=== PATIENT | female | born 1950 | race Caucasian/White ===

== ENCOUNTER 2017-12-28 23:32 | Emergency (ER) | payer MEDICARE, SELFPAY ==
[2017-12-29] MEDS: Phenazopyridine 100 MG TAB (01:35)
[2017-12-29] MEDS: MacroBID 100 MG CAP (01:35)
[2017-12-29 13:54] LABS: Bilirubin Negative (Negative); Blood Large (Negative); Clarity Sl Cloudy; Glucose Negative (Negative); Ketones Negative (Negative); Leukocyte Esterase Moderate (Negative); Nitrite Negative (Negative); RBC 20-50 (0-2); Urobilinogen 0.2 EU/dL (Up TO 0.2); WBC >50 HPF (0-5)
[2017-12-29 13:55] LABS: Bacteria Moderate HPF (Negative); C & S Indicated? Yes; Casts Negative LPF (Negative); Crystals Negative HPF (Negative); Epithelial Cells Rare HPF (Negative); Mucus Trace (Negative)
== END 2017-12-29 14:18 | disposition home or self-care (01) ==
LOC: ER 12-29 12:06
PROVIDERS: Emergency Provider Physician Assistant; PCP Family Medicine
DX: N39.0 Urinary tract infection, site not specified (principal); B96.20 Unspecified Escherichia coli [E. coli] as the cause of diseases classified elsewhere; Z87.440 Personal history of urinary (tract) infections; I10 Essential (primary) hypertension
CPT/HCPCS: 87077; 99283; 81003; 81015; 87086; 87186

== ENCOUNTER 2018-01-10 00:51 | Outpatient (CLI) | payer MEDICARE, SELFPAY ==
--- NOTE | 2018-01-10 12:45 | DI.MAMMO_ITS ---
SYMPTOMS/DIAGNOSIS: SCREENING, Z12.31, PREVENTATIVE CARE, Z00.00 MAMMOGRAM: Mammograms were interpreted according to the usual protocol including computer analysis with CAD system, tomosynthesis and C view imaging. Comparison with prior examinations. Breast density A. No suspicious masses or microcalcifications are seen. There has been no significant change compared to the prior examinations. IMPRESSION: No evidence for malignancy. Yearly mammography is recommended. Category I. MQSA ASSESSMENT OF FINDINGS: Negative. Category 1. Patient will receive a letter notifying them of these results. BI-RAD category A. The breasts are almost entirely fatty.
== END 2018-01-10 01:11 ==
PROVIDERS: PCP Family Medicine; Visit Provider Family Medicine
DX: Z12.31 Encounter for screening mammogram for malignant neoplasm of breast (principal)
CPT/HCPCS: 77063; 77067

== ENCOUNTER 2018-04-18 13:23 | Outpatient (CLI) | payer MEDICARE, SELFPAY | END 2018-04-18 13:43 | PROVIDERS: PCP Family Medicine; Visit Provider Family Medicine | DX: R30.0 Dysuria (principal) | CPT/HCPCS: 87086 ==

== ENCOUNTER 2018-07-11 12:48 | Outpatient (REF) | payer MEDICARE, SELFPAY ==
[2018-07-11 21:26] LABS: HCT 44.4 % (36.0-46.0); HGB 14.6 g/dL (12.0-15.5); Mean Corp. HGB Concentration 32.9 g/dL (32.0-36.0); Mean Corpuscular Hemoglobin 29.6 pg (27.0-33.0); Mean Corpuscular Volume 90.1 fL (80-95); Mean Platelet Volume 10.8 fL (8.0-11.0); Platelet Count 313 x1000/uL (130-400); RBC 4.93 m/cumm (4.00-5.20); RBC Distribution Width 13.3 % (11.7-14.6); White Blood Cell Count 8.47 k/cumm (4.4-10.8)
[2018-07-11 21:57] LABS: ALT 23 U/L (12-78); AST 22 U/L (15-37); Albumin 3.6 g/dL (3.4-5.0); Alkaline Phosphatase 121 U/L (46-116); BUN 14 mg/dL (7-18); Bilirubin, Total 0.4 mg/dL (0.2-1.0); CREATININE 0.82 mg/dL (0.55-1.02); Calcium 9.3 mg/dL (8.5-10.1); Chloride 103 mmol/L (98-107); Glucose 101 mg/dL (70-100); Potassium 4.4 mmol/L (3.5-5.1); Sodium 141 mmol/L (136-145); TSH (W/Ref FT4) 1.27 uIU/mL (0.358-3.74); Total Protein 7.5 g/dL (6.4-8.2)
== END 2018-07-11 13:08 ==
LOC: NCHCN 12:48
PROVIDERS: PCP Family Medicine; Visit Provider Family Medicine
DX: I10 Essential (primary) hypertension (principal); E78.5 Hyperlipidemia, unspecified; R10.814 Left lower quadrant abdominal tenderness; G56.02 Carpal tunnel syndrome, left upper limb
CPT/HCPCS: 80053; 85027; 84443

== ENCOUNTER 2018-07-15 16:09 | Outpatient (REF) | payer MEDICARE, SELFPAY ==
--- NOTE | 2018-07-15 11:32 | SKI_PTH ---
PATIENT: Poppy Coyne LOC: [facility] U#:[id number] AGE/SX: 67/F ROOM: RE07/15/[address]: Chuy Chu DO : 1950 BED: DIS: 07/15/2018 SPEC #: [id number] RECD: 07/16/18 12:13 STATUS: HAILEY REAlicia #: [id number] ROMAN: 07/15/18 11:[address]: Chuy Chu DEPT: Surgical Specimen RECD BY: Sanjuanita Ayala ENTERED: 07/16/18 12:14 SP TYPE: JB HURST DR: Jing Brock V Tissues: 1 - SKIN BIOPSY(SHAVE/PUNCH) Procedures: SKIN LEVEL 4 Comments: [id number]
== END 2018-07-15 16:29 ==
LOC: LBN 16:09
PROVIDERS: PCP Family Medicine; Visit Provider Otolaryngology Otolaryngology/Facial Plastic Surgery
DX: H73.892 Other specified disorders of tympanic membrane, left ear (principal)
CPT/HCPCS: 88305

== ENCOUNTER 2019-01-13 00:56 | Outpatient (CLI) | payer MEDICARE, SELFPAY ==
--- NOTE | 2019-01-13 10:52 | DI.MAMMO_ITS ---
SYMPTOMS/DIAGNOSIS: SCREENING, Z12.39, PREVENTATIVE CARE, Z00.00 MAMMOGRAM: Mammograms were interpreted according to the usual protocol including computer analysis with CAD system, tomosynthesis and C view imaging. The breast tissue is predominantly of fatty radiodensity. There is no evidence of a mass. There are no suspicious calcifications and there has been no appreciable interval change when compared with prior images. SUMMARY: No evidence of malignancy, Category I, yearly screening mammography is recommended. Breast density Category A. SA ASSESSMENT OF FINDINGS: Negative. Category 1. Patient will receive a letter notifying them of these results. BI-RAD category A. The breasts are almost entirely fatty.
== END 2019-01-13 01:16 ==
PROVIDERS: PCP Family Medicine; Visit Provider Family Medicine
DX: Z12.31 Encounter for screening mammogram for malignant neoplasm of breast (principal)
CPT/HCPCS: 77063; 77067

== ENCOUNTER 2019-04-16 01:16 | Outpatient (CLI) | payer MEDICARE, SELFPAY ==
[2019-04-16 09:31] LABS: Calculated LDL 134 mg/dL; Cholesterol 214 mg/dL (<200); HDL Cholesterol 49 mg/dL (40-60); Triglyceride 157 mg/dL (<150)
== END 2019-04-16 01:36 ==
PROVIDERS: PCP Nurse Practitioner; Visit Provider Nurse Practitioner
DX: I10 Essential (primary) hypertension (principal); Z13.6 Encounter for screening for cardiovascular disorders
CPT/HCPCS: 36415; 80061

== ENCOUNTER 2019-05-13 01:31 | Outpatient (CLI) | payer MEDICARE, SELFPAY ==
--- NOTE | 2019-05-13 07:26 | DI.US_ITS ---
EXAM: US ABDOMEN CLINICAL HISTORY: upper abd pain,r10.10 TECHNIQUE: Ultrasound abdomen performed using standard protocol. COMPARISON: PELVIS TRANSVAG from 11/17/2016 FINDINGS: LIVER: Normal. There is hepatopetal flow through the portal vein. GALLBLADDER: No evidence of cholelithiasis. No evidence of wall thickening. No pericholecystic fluid identified. KIDNEYS: Kidneys are symmetric in size. No evidence of renal calculi. No evidence of hydronephrosis. No renal mass or cyst identified. BILIARY SYSTEM: Common bile duct measures 5 mm. No intrahepatic biliary ductal dilation. MOBLEY'S SIGN: Negative. PANCREAS: Normal where visualized. SPLEEN: Not enlarged. ABDOMINAL AORTA AND IVC: Visualized portions normal caliber. ASCITES: None seen. IMPRESSION: Normal sonographic appearance of the upper abdomen.
[2019-05-13 08:58] LABS: ALT 26 U/L (14-59); AST 15 U/L (15-37); Albumin 3.7 g/dL (3.4-5.0); Alkaline Phosphatase 112 U/L (46-116); Bilirubin, Direct 0.11 mg/dL (0.00-0.20); Bilirubin, Total 0.4 mg/dL (0.2-1.0); Lipase 100 U/L (73-393); Total Protein 7.3 g/dL (6.4-8.2)
== END 2019-05-13 01:51 ==
PROVIDERS: PCP Nurse Practitioner; Visit Provider Nurse Practitioner
DX: R10.10 Upper abdominal pain, unspecified (principal)
CPT/HCPCS: 36415; 80076; 83690; 76700

== ENCOUNTER 2019-11-26 01:42 | Outpatient (CLI) | payer MEDICARE, SELFPAY ==
--- NOTE | 2019-11-26 06:30 | DI.US_ITS ---
EXAM: MG MAMMO DIAGNOSTIC BI CLINICAL HISTORY: RT BREAST LUMP 2:00,N63.0. COMPARISON: Mammograms from 2011 through 2019. TECHNIQUE: Craniocaudal and mediolateral oblique Full Field Digital Mammography views with Computer Aided Diagnosis followed by Tomosynthesis and right breast ultrasound. FINDINGS: Mammography/Tomosynthesis: Masses/Architectural Distortion: None seen. Microcalcifications: No suspicious pleomorphic-type are seen. Skin Thickening/Nipple Retraction: None. Breast US: Echotexture: Normal appearance of the glandular tissue. Shadowing: No suspicious foci. Cyst: None. Solid lesions: None seen. Ductal dilation: None. The area of the palpable abnormality corresponds to a 3.4 x 0.7 x 3.1 centimeter lesion which is isoe choic to fat, consistent with a simple lipoma. IMPRESSION: 1. No evidence of malignancy is noted. 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 2. Unless there is more urgent need, follow-up screening mammography is recommended, as per [place] [employer] guidelines. BI-RADS Category 2 - Benign Findings Breast Density - Category A - Almost entirely fatty: A negative radiographic report should not delay biopsy if a dominant or clinically suspicious mass is present. Up to ten percent of cancers are not identified on mammography. A negative report may reinforce clinical impression. Adenosis and dense breasts may obscure an underlying neoplasm. False positive reports average 6 to 10%. Patient will receive a letter notifying them of these results.
== END 2019-11-26 02:02 ==
PROVIDERS: PCP Nurse Practitioner; Visit Provider Nurse Practitioner
DX: Z12.4 Encounter for screening for malignant neoplasm of cervix (principal); R92.8 Other abnormal and inconclusive findings on diagnostic imaging of breast; D17.1 Benign lipomatous neoplasm of skin and subcutaneous tissue of trunk
CPT/HCPCS: 76642; 77062; 77066; G0279

== ENCOUNTER 2020-03-05 04:26 | Outpatient (CLI) | payer MEDICARE, SELFPAY ==
--- NOTE | 2020-03-05 06:45 | DI.US_ITS ---
EXAM: US LOWER EXTREMITY VENOUS LT CLINICAL HISTORY: edema left leg,R60.9 TECHNIQUE: Left lower extremity venous ultrasound performed using grayscale, color-flow, and spectra l Doppler analysis. COMPARISON: No exams were available for comparison FINDINGS: The left common femoral, femoral and popliteal veins demonstrate normal compressibility, augmentation , and color Doppler. The posterior tibial veins are patent. The saphenofemoral junction is unremarka ble. There is no evidence of a Webb cyst. The soft tissues are unremarkable. IMPRESSION: No DVT. DATA REPOSITORY:
== END 2020-03-05 04:46 ==
PROVIDERS: PCP Nurse Practitioner; Visit Provider Nurse Practitioner
DX: R60.9 Edema, unspecified (principal)
CPT/HCPCS: 93971

== ENCOUNTER 2020-05-20 02:53 | Outpatient (CLI) | payer MEDICARE, SELFPAY ==
[2020-05-20 08:16] LABS: CREATININE 0.83 mg/dL (0.55-1.02)
[2020-05-20] MEDS: Omnipaque 350 MG/ML 50 ML BTL PO (08:16)
[2020-05-20] MEDS: Breeza Beverage 473 ML BTL PO ×5 (08:18→09:29)
--- NOTE | 2020-05-20 09:15 | DI.CT_ITS ---
EXAM: CT ABDOMEN PELVIS W CLINICAL HISTORY: UNILATERA EDEMA LOWER EXTREMITY,R60.0,? pELVIC PASS TECHNIQUE: Imaging Protocol: Axial computed tomography images with coronal and sagittal reformatted images were created and reviewed CONTRAST MATERIAL: Intravenous: Omnipaque 350 Contrast volume:100 mL Oral: Yes COMPARISON: No exams were available for comparison FINDINGS: ABDOMEN: Lung Bases: Normal where visualized. Liver: Normal density. No measurable mass. Portal, Superior Mesenteric, and Splenic Veins: Unremarkable. Gallbladder and Biliary Tract: No radiodense calculus or dilation. Pancreas: Normal density, no abnormal calcifications or inflammatory process. Spleen: Normal. Calcified granuloma. Adrenals: No masses seen. Kidneys: Normal size, contour and axis. No radiodense stones or obstructive uropathy. There are few t iny hypodense lesions in the kidneys bilaterally. They are too small for further characterization, b ut likely reflect small cysts. Abdominal Aorta: Abdominal portion non-dilated. Mild atherosclerosis. Bowel: No obstruction or bowel wall thickening. Appendix is unremarkable. Scattered diverticula throu ghout the colon. No evidence of acute diverticulitis. Peritoneal Cavity: No ascites, collection or mesenteric inflammatory response. No free air. Lymph Nodes: Within normal limits. Bones: Within normal limits for the patient's age. Soft Tissues: Unremarkable. PELVIS: Bladder: Symmetric distention, no gross wall thickening. Reproductive Organs: Unremarkable as visualized. Lymph Nodes: Within normal limits. Bones: Within normal limits for the patient's age. IMPRESSION: Unremarkable CT scan of the abdomen and pelvis. RADIATION DOSE DELIVERED: 993.47mGy.cm Total DLP DATA REPOSITORY: All CT scans at this facility are submitted to the National Radiology Data Registry (NRDR) Dose Index Registry (DIR) with the [employer] (ACR). RADIATION OPTIMIZATION: All CT scans at this facility use at least one of these dose optimization te chniques: automated exposure control; mA and/or kV adjustment per patient size (includes targeted exa ms where dose is matched to clinical indication); or iterative reconstruction.
[2020-05-20] MEDS: Omnipaque 350 MG/ML 100 ML BTL IJ (09:27)
[2020-05-20] MEDS: Normal Saline - Diluent 50 ML VIAL IV (09:27)
== END 2020-05-20 03:13 ==
PROVIDERS: PCP Nurse Practitioner; Visit Provider Nurse Practitioner
DX: I10 Essential (primary) hypertension (principal); R60.0 Localized edema; K57.30 Diverticulosis of large intestine without perforation or abscess without bleeding
CPT/HCPCS: 74177; 82565; J3490; Q9967

== ENCOUNTER 2020-06-24 01:36 | Outpatient (CLI) | payer MEDICARE, SELFPAY ==
--- NOTE | 2020-06-24 07:15 | DI.US_ITS ---
APPROVED REPORT EXAM: Comprehensive 2D, Doppler, and color-flow Echocardiogram Patient Location: Out-Patient Machine Puller: Jennifer Carlos RDCS (AE) Indications: Edema, SOB Other Information Study Quality: Adequate Conclusion Normal left ventricular wall thickness and chamber size. Estimated ejection fraction is 60%. There are no segmental wall motion abnormalities Normal right ventricular size and systolic function Both atria are normal in size There are no structural or hemodynamically significant valvular abnormalities Wall motion Left Ventricle The left ventricle is normal size. The left ventricular systolic function is normal. The left ventric ular ejection fraction is within the normal range. There is normal left ventricular wall thickness. T here is normal LV segmental wall motion. There is no ventricular septal defect visualized. LVEF is 60 %. Right Ventricle The right ventricle is normal size. The right ventricular systolic function is normal. The RVSP is 26 .4 mmHg. Atria The left atrium size is normal. The right atrium size is normal. The interatrial septum is intact wit h no evidence for an atrial septal defect. Aortic Valve The aortic valve is normal in structure. Aortic valve is trileaflet. There is no aortic valvular sten osis. No aortic regurgitation is present. Mitral Valve The mitral valve is normal in structure. No evidence of mitral valve stenosis. Trace mitral regurgita tion. Tricuspid Valve The tricuspid valve is normal in structure. There is no tricuspid valve stenosis. Trace tricuspid reg urgitation. Pulmonic Valve The pulmonary valve is normal in structure. There is no pulmonic valvular stenosis. There is no pulmo dave valvular regurgitation. Great Vessels The aortic root is normal in size. The ascending aorta is normal Aortic arch is normal in caliber. IV C is normal in size and collapses >50% with inspiration. Pericardium There is no pericardial effusion. 2D Dimensions IVSD d PLAX 0.85 cm F: 0.6-1.0 LV Vol A2C d MOD 96.1 mL LVPW d PLAX 0.85 cm F: 0.6 - 1.0 LV Vol A4C d MOD 132.7 mL LVID d PLAX 4.83 cm F: 3.8 - 5.2 LA vol/ BSA A2C s A-L 35.1 mL/m2 LVDs 3.05 cm F: 2.2 - 3.5 LA vol/ BSA A4C s A-L 34.8 mL/m2 Ao Root d 2.97 cm F: 2.7 - 3.3 LA Vol/ BSA Biplane s A-L 36.9 mL/m2 RA Area A4C 14.61 cm2 LA Area A4C s MOD 20.72 cm2 RA Vol/ BSA A4C s A-L 21.3 mL/m2 LA Area A2C s MOD 19.70 cm2 Ao Asc Diam d 3.34 cm F: 2.3 - 3.1 LV EF A4C MOD 59.3 % LV EF Teichholz 65.8 % LV EF A2C MOD 58.1 % LVEF (Mendez's) 58.60 % F: 54 - 74 LV EF Biplane MOD 58.6 % LV Volume 89.52 mL F: 46 - 106 SV 67.81 mL LV Volume Index 49.18 mL/m2 F: 29 - 61 SV Index 37.11 mL/m2 LV Vol Biplane MOD 115.7 mL FS 36.20 % M-Mode TAPSE 2.39 cm (M/F) >1.7 LV Diastology MV E' medial 0.120 (>0.07 m/s) E/A Ratio 1.0 LV E/e MED 6.75 (<14) MV E Vmax 0.81 (0.4-1.3 m/s) MV E' lateral 0.108 (>0.1 m/s) MV A Vmax 0.85 (0.4-1.3 m/s) LV E/e LAT 7.55 (<14) MV E/A Ratio 0.93 MV E/E' medial 6.79 MV E/E' lateral 7.56 Aortic Valve LVOT Area 2.81 cm2 AoV Area Vmax 2.39 cm2 LVOT Vmax 1.25 m/s AoV Area/ BSA (Vmax) 1.31 cm2/m2 LVOT Mean Moses. 0.71 m/s JAMILA Mean Moses. 2.04 cm2 LVOT Peak Grad 6.3 mmHg JAMILA Mean Moses. Index 1.12 cm2/m2 LVOT Mean Grad 2.5 mmHg LVOT VTI 0.310 m LVOT Diam s 1.85 cm AoV Vmax 1.48 m/s Velocity Ratio 0.84 AoV Mean Moses. 0.98 m/s AoV Peak Grad 8.7 mmHg LVOT SV 87.10 mL AoV Mean Grad 4.3 mmHg AoV VTI 0.368 m AoV Area VTI 2.37 cm2 AoV Area/ BSA (VTI) 1.29 cm/m2 Mitral Valve MV DT 209 (160-240 msec) MV PHT 60 msec MV Area PHT 3.64 cm2 MV VTI 0.455 m MV Area VTI 1.92 (4.0-6.0 cm2) Pulmonary Valve PV Vmax 1.02 (0.5-1.5 m/s) RVOT Peak Gr. 2.49 mmHg PV Peak Grad 4.1 mmHg RVOT Mean Gr. 1.10 mmHg PV Mean Grad 2.2 mmHg RVOT VTI 0.163 m PV VTI 0.244 m RVOT Vmax 0.79 m/s Tricuspid Valve TR Peak Grad 23.4 mmHg TR Vmax 2.42 m/s RA Pressure 3.00 mmHg RVSP (TR) 26.4 mmHg
== END 2020-06-24 01:37 ==
LOC: DI 01:37
PROVIDERS: PCP Nurse Practitioner; Visit Provider Nurse Practitioner
DX: R06.02 Shortness of breath (principal)
CPT/HCPCS: 93306

== ENCOUNTER 2020-10-01 10:08 | Outpatient (CLI) | payer MEDICARE, SELFPAY ==
--- NOTE | 2020-10-01 10:00 | RT.EKG_ITS ---
APPROVED REPORT Exam: Resting ECG Reason for Exam: BRADYCARDIA/IRREGULAR PULSE Patient Location: O HR:51 bpm ECG Measurements Heart Rate 51 AXIS NC 168 P 50 QRSd 91 QRS -36 QT 463 T 62 QTc 427 Conclusion Sinus bradycardia...rate< 60 Left axis deviation...QRS axis (-30,-90)
== END 2020-10-01 10:09 | disposition home or self-care (01) ==
LOC: DI.CM 10:09
PROVIDERS: PCP Nurse Practitioner; Visit Provider Nurse Practitioner
DX: R09.89 Other specified symptoms and signs involving the circulatory and respiratory systems (principal); R00.1 Bradycardia, unspecified; R94.31 Abnormal electrocardiogram [ECG] [EKG]
CPT/HCPCS: 93010

== ENCOUNTER 2020-10-04 05:00 | Outpatient (RCR) | payer MEDICARE, SELFPAY ==
--- NOTE | 2020-10-04 10:00 | HOLTER_ITS ---
APPROVED REPORT Conclusion There is a 48-hour Holter monitor ordered for indication of irregular heartbeat. ???The patient was in normal sinus rhythm for the majority of the recording with an average heart rat e of 55 bpm. ???There were no episodes of ventricular tachycardia and occasional (5%) PVCs. ???There was 1 episode of SVT which lasted a total of 3 beats. There were rare PACs. ???There were no episodes of atrial fibrillation, no pauses greater than 3 seconds and no evidence of high degree heart block. ???There were 2 patient triggered events none of which were associated with arrhythmia.
== END 2020-10-27 23:59 | disposition home or self-care (01) ==
LOC: RT 05:00
PROVIDERS: PCP Nurse Practitioner; Visit Provider Nurse Practitioner
DX: I49.8 Other specified cardiac arrhythmias (principal); I49.3 Ventricular premature depolarization; I47.2 Ventricular tachycardia
CPT/HCPCS: 93227; 93225; 93226

== ENCOUNTER → 2020-11-08 09:24 | Outpatient (BNVA) | payer MEDICARE, SELFPAY | PROVIDERS: PCP Nurse Practitioner; Referring Provider Nurse Practitioner; Visit Provider Physician Assistant | DX: M65.341 Trigger finger, right ring finger (principal) | CPT/HCPCS: 99213 ==

== ENCOUNTER 2020-11-30 07:55 | Day surgery (SDC) | payer MEDICARE, SELFPAY ==
--- NOTE | 2020-11-30 07:45 | W.PM.DSUDISC ---
Discharge Plan Disposition Patient Disposition: HOME Condition: Good Discharge Details Reason For Visit: Trigger Finger Attending Provider: Oz Snyder Primary Care Provider: Anita Ng Home Meds and New Rx's Prescriptions: New hydrocodone-acetaminophen 5-325 mg tablet 1 tab PO Q6H PRNQty: 5 RF: 0 acetaminophen [Tylenol Extra Strength] 500 mg tablet 500 mg PO Q6H PRNQty: 30 RF: 0 ibuprofen 600 mg tablet 600 mg PO TID Qty: 30 RF: 0 Continued albuterol sulfate 90 mcg/actuation HFA aerosol inhaler 2 puff IH QID PRN (Reason: shortness of breath or wheezing) Qty: 18 RF: 0 metronidazole 0.75 % cream 1 applic topical BID RF: 0 amlodipine 5 mg tablet 10 mg PO DAILY RF: 0 omeprazole 10 mg capsule,delayed release(DR/EC) 10 mg PO DAILY Qty: 90 RF: 1 Shingrix (PF) 50 mcg/0.5 mL suspension for reconstitution 0.5 ml IM ONCE Qty: 1 RF: 1 fish oil-dha-epa 1 EACH capsule 1 ea PO DAILY RF: 0 BABY ASPIRIN 81 MG TAB.CHEW 81 mg PO DAILY RF: 0 loperamide [Imodium A-D] 2 mg tablet 2 mg PO 2 X WK PRNRF: 0 lisinopril 40 mg tablet 40 mg PO DAILY Qty: 90 RF: 3 Discharge Instructions Stand Alone Forms: Lillian Josue Finger Release Referrals: Oz Snyder MD [ [facility] STAFF PHYSICIAN] - Activity:: Activity as Tolerated Remove Dressings/Wound Care:: 72 hours Shower/Bathe:: 72 hours Diet:: As Tolerated Discharge Orders Discharge Orders: Discharge Order (Routine); Ordered 11/30/20 Ordered By: Jing Zambrano DS: Diagnosis Discharge Diagnosis (1) Trigger finger, right ring finger: Status: Acute
[2020-11-30 08:06] VITALS: BP 134/71; PULSE 56; RESP 16; TEMP 36.5; O2SAT 98
[2020-11-30] MEDS: Sodium Bicarbonate 50 MEQ/50 ML VIAL (09:10)
--- NOTE | 2020-11-30 12:46 | W.PM.OP ---
Date of service: 11/30/20 Time of Service: 09:46 Operative Note Operative Note DATE OF PROCEDURE: 11/30/20 PRE-OP DIAGNOSIS: Right Ring Finger Trigger Finger POST-OP DIAGNOSIS: same PROCEDURE: Trigger Finger Release - Right Ring Finger SURGEON: Oz Snyder ANESTHESIA TYPE: Local By Surgeon Refer to Anesthesia Record PATHOLOGY: none sent TOURNIQUET TIME: 0 COMPLICATIONS: None Patient was transported to: same day Patient's condition: stable Indications: I have seen Poppy in clinic for symptoms of a trigger finger. The catching, clicking, locking, and pain limited function. The diagnosis of trigger finger was evident. The symptoms had not responded to conservative measures. I discussed trigger finger release with the patient. I reviewed the risks of the procedure to include, but not limited to, bleeding, infection, pain, stiffness, incomplete release, damage to nerves or vessels, continued catching, recurrence. Despite these risks, the patient elected to proceed. Findings: There was a tightened A1 joan which was released. The flexor tendons were inspected and the patient was able to move the finger without any catching, clicking, or locking. Procedure Description: Poppy was greeted in the preoperative holding area where the correct side was identified and marked. The consent was reviewed with the patient and signed. All questions were answered. She was taken back to the operating room. The patient was placed into the supine position on the operating room table with the right arm on an arm board. All bony prominences were well padded. No prophylactic antibiotics were administered since this was a clean, elective hand surgical case. The right arm was then prepped with Chloraprep and draped in a standard fashion with stockinette and extremity drape. A timeout to confirm correct identity, side and site, procedure, allergies, anesthesia, and medical concerns was performed. The surgical site was marked as a longitudinal incision directly over the A1 joan of the involved digit. This was confirmed with palpation during finger flexion. This area, overlying the metacarpal head, was then anesthetized with 1% Lidocaine. The patient tolerated this well and once the anesthetic had setup, the procedure began. A longitudinal incision was made through skin only, approximately 1cm. The deep tissues were dissected bluntly. Once the A1 joan and flexor tendons were identified the soft tissue including neurovascular structures were retracted medially and laterally. There were no crossing structures over the A1 joan. The proximal edge of the joan was identified and the joan was incised with tenotomy scissors. There was a release of the tendons once this was fully released. The tendons were then removed from the wound and inspected. Excess synovium was resected. The tendons were then returned and the patient was asked to move the finger into deep flexion and back to extension. There was no recreation of the pre-operative symptoms. The hand was then once more inspected for any A0 joan or area of possible constriction. The wound was then irrigated and the skin was closed with a 4-0 Nylon. This was dressed with gauze and a Conform dressing. The patient tolerated the procedure well and was returned to the Same Day Surgery area in a stable condition suffering no known complication.
== END 2020-11-30 09:57 | disposition home or self-care (01) ==
LOC: SUR 07:55
PROVIDERS: PCP Nurse Practitioner; Visit Provider Student in an Organized Health Care Education/Training Program
PROC: (CPT 26055; principal; 2020-11-30 10:30)
DX: M65.341 Trigger finger, right ring finger (principal)
CPT/HCPCS: 26055

== ENCOUNTER → 2020-12-09 08:25 | Outpatient (BNVA) | payer MEDICARE, SELFPAY | PROVIDERS: PCP Nurse Practitioner; Referring Provider Nurse Practitioner | DX: Z47.89 Encounter for other orthopedic aftercare (principal) ==

== ENCOUNTER 2021-01-21 04:11 | Outpatient (CLI) | payer MEDICARE, SELFPAY ==
--- NOTE | 2021-01-21 09:15 | DI.MAMMO_ITS ---
Exam(s) MAMMO SCREENING EXAM: MAMMO SCREENING CLINICAL HISTORY: screening, Z12.39 TECHNIQUE: Bilateral full field digital CC and MLO mammographic images were obtained with 3D tomosyn thesis and utilizing computer aided detection (CAD). COMPARISON: Available for comparison. FINDINGS: Masses/Architectural Distortion: None seen. Microcalcifications: No suspicious pleomorphic-type are seen. Skin Thickening/Nipple Retraction: None. IMPRESSION: 1. No significant interval change with no specific features of malignancy noted. 2. Unless there is more urgent need, screening mammography is recommended, as per [place] [employer] guidelines. BI-RADS Category 1 - Negative Breast Density - Category A - Almost entirely fatty Breast density category C or D implies that the patient has dense breast tissue. Dense breast tissue is very common and is not abnormal but dense breast tissue can make it harder to find cancer on a ma mmogram. Also, dense breast tissue may increase their breast cancer risk. This information about the result of the mammogram report was provided to the patient to raise their awareness. Use this report when you speak with the patient about their risks for breast cancer, which includes their family hist ory. At that time, you may recommend for more screening tests (Ultrasound or MRI) as they might be us eful based on their risk. A negative radiographic report should not delay biopsy if a dominant or clinically suspicious mass is present. Up to ten percent of cancers are not identified on mammography. A negative report may reinforce clinical impression. Adenosis and dense breasts may obscure an underlying neoplasm. False positive reports average 6 to 10%. Patient will receive a letter notifying them of these results.
== END 2021-01-21 04:31 ==
PROVIDERS: PCP Nurse Practitioner; Visit Provider Nurse Practitioner
DX: Z12.31 Encounter for screening mammogram for malignant neoplasm of breast (principal)
CPT/HCPCS: 77063; 77067

== ENCOUNTER 2021-03-18 01:39 | Outpatient (CLI) | payer MEDICARE, SELFPAY ==
--- NOTE | 2021-03-18 08:15 | DI.DEXA_ITS ---
Exam(s) XR DEXA BONE DENSITY W/WO CLAUS EXAM: XR DEXA BONE DENSITY W/WO CLAUS CLINICAL HISTORY: screen osteoporosis, asymptomatic menopausal state, Z78.0 TECHNIQUE: Open Places C densitometer COMPARISON: No exams were available for comparison FINDINGS: Lateral view of the thoracic and lumbar spine shows no evidence of compression fractures. Bone mineral density measurements of the lumbar spine correspond to a total T-score of -0.3, in the normal range. 3.4 percent increase when compared with 2013. 3.4 percent decrease when compared with 2005. Bone mineral density measurements of the left hip correspond to a total T-score of -0.8. The femora l neck T-score is -1.2, in the osteopenic range. 5.3 percent decrease when compared with 2013. No significant change from 2005. The left forearm bone mineral density measurements correspond to a T-score of the distal 3rd of -2.9, in the osteoporotic range. 3.4 percent decrease from 2013 but not statistically significant. IMPRESSION: Normal bone mineral density of the t lumbar spine. Osteopenia of the left hip. Osteoporosis of the left forearm. Mildly decreased bone density when compared with 2005.
== END 2021-03-18 01:59 ==
PROVIDERS: PCP Nurse Practitioner; Visit Provider Nurse Practitioner
DX: M81.0 Age-related osteoporosis without current pathological fracture (principal); M85.88 Other specified disorders of bone density and structure, other site; Z78.0 Asymptomatic menopausal state
CPT/HCPCS: 77080

== ENCOUNTER 2021-10-28 02:37 | Outpatient (CLI) | payer MEDICARE, SELFPAY ==
[2021-10-28 12:41] LABS: Anion Gap 3.7 mmol/L (3-11); BUN 15 mg/dL (7-18); CO2 32.3 mmol/L (21.0-32.0); CREATININE 0.8 mg/dL (0.55-1.02); Calcium 8.9 mg/dL (8.5-10.1); Chloride 102 mmol/L (98-107); Glucose 88 mg/dL (74-106); Potassium 4.1 mmol/L (3.5-5.1); Sodium 138 mmol/L (136-145)
[2021-10-28 13:31] LABS: Hemoglobin A1C 5.8 % (<5.7)
== END 2021-10-28 02:38 | disposition home or self-care (01) ==
LOC: LOS 02:38
PROVIDERS: PCP Nurse Practitioner; Visit Provider Nurse Practitioner
DX: I10 Essential (primary) hypertension (principal); R73.09 Other abnormal glucose
CPT/HCPCS: 36415; 80048; 83036

== ENCOUNTER → 2021-12-12 01:04 | Outpatient (CLI) | payer MEDICARE, SELFPAY ==
--- NOTE | 2021-12-12 07:30 | DI.US_ITS ---
Exam(s) US ABDOMEN LIMITED EXAM: US ABDOMEN LIMITED CLINICAL HISTORY: ruq abd pain,r10.11 TECHNIQUE: Ultrasound abdomen performed using standard protocol. COMPARISON: No exams were available for comparison FINDINGS: There is no ascites evident. LIVER: There are no hepatic lesions evident nor dilatation of intrahepatic ducts. GALLBLADDER/BILIARY: There are no gallstones. No gallbladder wall edema nor pericholecystic fluid. The common hepatic duct isnot dilated, measuring 6mm at the level of yumiko hepatis. PANCREAS: There is no evidence of pancreatic mass nor dilatation of the pancreatic duct. RIGHT KIDNEY:No evidence of solid mass, calculus, nor hydronephrosis. No cortical cysts evident. IMPRESSION: 1. No evidence of cholelithiasis nor dilatation of the biliary tree. 2. No other significant ultrasound findings in the right upper quadrant. 3. There is no ascites. DATA REPOSITORY:
== END ==
PROVIDERS: PCP Nurse Practitioner; Visit Provider Nurse Practitioner
DX: R10.11 Right upper quadrant pain (principal)
CPT/HCPCS: 76705

== ENCOUNTER 2022-03-24 01:42 | Outpatient (CLI) | payer MEDICARE, SELFPAY ==
[2022-03-24 10:04] LABS: Abs Immature Grans 0.02 10^3/uL (0.0-0.06); Absolute Basophil Count 0.08 10^3/uL (0.0-0.2); Absolute Eosinophil Count 0.21 10^3/uL (0.0-0.7); Absolute Lymphocyte Count 1.88 10^3/uL (1.2-3.4); Absolute Monocyte Count 0.68 10^3/uL (0.1-0.8); Absolute Neutrophil Count 5.87 10^3/uL (1.2-6.7); Basophils % 0.9; Eosinophils % 2.4; HCT 46.2 % (36.0-46.0); Immature Grans % 0.2; Lymphocytes % 21.5; MCH 29.5 pg (27.0-33.0); MCHC 32.5 % (32.0-36.0); MCV 91 fL (80-95); MPV 9.9 fL (8.0-11.0); Monocytes % 7.8; Neutrophils % 67.2; Platelet Count 337 10^3/uL (130-400); RBC 5.08 10^6/uL (3.93-5.22); RDW-SD 43.8 fL; WBC 8.74 10^3/uL (4.4-10.8)
[2022-03-24 11:48] LABS: ALT 23 U/L (14-59); AST 15 U/L (15-37); Albumin 3.6 g/dL (3.4-5.0); Alkaline Phosphatase 111 U/L (46-116); BUN 15 mg/dL (7-18); Bilirubin, Total 0.5 mg/dL (0.2-1.0); CREATININE 0.8 mg/dL (0.55-1.02); Calcium 9.1 mg/dL (8.5-10.1); Chloride 102 mmol/L (98-107); Estimated GFR 79.71 (mL/min/1.73m2); Glucose 93 mg/dL (74-106); Potassium 4.1 mmol/L (3.5-5.1); Sodium 138 mmol/L (136-145); Total Protein 7.7 g/dL (6.4-8.2)
== END 2022-03-24 01:43 | disposition home or self-care (01) ==
LOC: LBO 01:43
PROVIDERS: PCP Student in an Organized Health Care Education/Training Program; Visit Provider Student in an Organized Health Care Education/Training Program
DX: Z91.89 Other specified personal risk factors, not elsewhere classified (principal); R10.11 Right upper quadrant pain
CPT/HCPCS: 36415; 80053; 85025

== ENCOUNTER → 2022-04-03 14:20 | Outpatient (BNVA) | payer MEDICARE, SELFPAY | PROVIDERS: PCP Student in an Organized Health Care Education/Training Program; Referring Provider Student in an Organized Health Care Education/Training Program; Visit Provider Surgery | DX: D17.1 Benign lipomatous neoplasm of skin and subcutaneous tissue of trunk (principal) | CPT/HCPCS: 99213 ==

== ENCOUNTER → 2022-04-04 02:15 | Outpatient (CLI) | payer MEDICARE, SELFPAY ==
--- NOTE | 2022-04-04 06:30 | DI.US_ITS ---
Exam(s) US ABDOMEN LIMITED EXAM: US ABDOMEN LIMITED CLINICAL HISTORY: evaluate gallbladder,ruq abd pain, r10.11 TECHNIQUE: Ultrasound abdomen performed using standard protocol. COMPARISON: US US ABDOMEN LIMITED from 12/12/2021 FINDINGS: PANCREAS: Normal where visualized. LIVER: Normal. Hepatopedal flow in the Portal Vein. The liver measures in 14.1 cm length. GALLBLADDER: No evidence of cholelithiasis. No evidence of wall thickening. No pericholecystic fluid identified. BILIARY SYSTEM: Common bile duct measures < 7 mm. No intrahepatic biliary ductal dilation. MOBLEY'S SIGN: Negative. RIGHT KIDNEY: Kidney is normal in size. No evidence of renal calculi. No evidence of hydronephrosis. No renal mass or cyst identified. ASCITES: None seen. IMPRESSION: Normal sonographic appearance of the upper abdomen. DATA REPOSITORY:
== END ==
PROVIDERS: PCP Student in an Organized Health Care Education/Training Program; Visit Provider Student in an Organized Health Care Education/Training Program
DX: R10.11 Right upper quadrant pain (principal)
CPT/HCPCS: 76705

== ENCOUNTER → 2022-04-05 02:16 | Outpatient (CLI) | payer MEDICARE, SELFPAY ==
--- NOTE | 2022-04-05 08:15 | DI.MAMMO_ITS ---
Exam(s) MAMMO SCREENING EXAM: MAMMO SCREENING CLINICAL HISTORY: screening,Z12.39 TECHNIQUE: Bilateral full field digital CC and MLO mammographic images were obtained with 3D tomosyn thesis and utilizing computer aided detection (CAD). COMPARISON: Available for comparison. FINDINGS: Masses/Architectural Distortion: None seen. There is a stable nodule in the central left breast. Microcalcifications: No suspicious pleomorphic-type are seen. Skin Thickening/Nipple Retraction: None. IMPRESSION: 1. No significant interval change with no specific features of malignancy noted. 2. Unless there is more urgent need, screening mammography is recommended, as per [place] [employer] guidelines. BI-RADS Category 1 - Negative Breast Density - Category B - Scattered areas of fibroglandular density Breast density category C or D implies that the patient has dense breast tissue. Dense breast tissue is very common and is not abnormal but dense breast tissue can make it harder to find cancer on a ma mmogram. Also, dense breast tissue may increase their breast cancer risk. This information about the result of the mammogram report was provided to the patient to raise their awareness. Use this report when you speak with the patient about their risks for breast cancer, which includes their family hist ory. At that time, you may recommend for more screening tests (Ultrasound or MRI) as they might be us eful based on their risk. A negative radiographic report should not delay biopsy if a dominant or clinically suspicious mass is present. Up to ten percent of cancers are not identified on mammography. A negative report may reinforce clinical impression. Adenosis and dense breasts may obscure an underlying neoplasm. False positive reports average 6 to 10%. Patient will receive a letter notifying them of these results.
== END ==
PROVIDERS: PCP Student in an Organized Health Care Education/Training Program; Visit Provider Student in an Organized Health Care Education/Training Program
DX: Z12.31 Encounter for screening mammogram for malignant neoplasm of breast (principal)
CPT/HCPCS: 77063; 77067

== ENCOUNTER 2022-04-07 08:45 | Day surgery (SDC) | payer MEDICARE, SELFPAY ==
--- NOTE | 2022-04-06 20:50 | PDOC.DSDIS_ITS ---
Date of service: 04/07/22 Time of Service: 12:41 Discharge Plan Disposition Patient Disposition: Home Discharge Details Reason For Visit: Excision lipoma Attending Provider: Clemente Menard Primary Care Provider: Jaclyn Abarca Home Meds and New Rx's Prescriptions: Continued metronidazole 0.75 % cream 1 applic topical DAILY PRN albuterol sulfate 90 mcg/actuation HFA aerosol inhaler 2 puff IH QID PRN (Reason: shortness of breath or wheezing) Qty: 18 1RF amlodipine 10 mg tablet 10 mg PO DAILY Qty: 90 3RF loperamide 2 mg capsule 2 mg PO DAILY fish oil-dha-epa 1 EACH capsule 1 ea PO DAILY omeprazole 10 mg capsule,delayed release(DR/EC) 10 mg PO DAILY Qty: 90 4RF losartan 100 mg tablet 100 mg PO DAILY Qty: 90 3RF aspirin 81 mg tablet,delayed release (DR/EC) 81 mg PO DAILY Discharge Instructions Instructions: Lipoma Removal (DC) Additional Instructions: 1. Resume all of your medications. 2. Okay to use tylenol and ibuprofen over the counter as needed. Use [] for severe pain 3. Okay to use ice packs or heating pads for your comfort. 4. Leave bandage in place for 24 hours, then remove. 5. Shower with warm soapy water. Pat dry. Use a bandaid if needed to protect your clothing. 6. No soaking or tub baths until I see you in the office. 7. No heavy lifting until I see you in the office. 8.Call the office (or go directly to the emergency room after hours) if you notice any of the following: Develop chills (warm to touch), or if you have a thermometer and your temperature is above 101 Difficulty breathing or difficultly swallowing Persistent vomiting Any bleeding ? exceeding one tablespoon 6. Call your physician if the site where your intravenous was started becomes red, swollen, painful, and warm to touch. Referrals: Clemente Menard MD [ [facility] STAFF PHYSICIAN] - Activity:: Activity as Tolerated Remove Dressings/Wound Care:: 24 hours Shower/Bathe:: 24 hours Diet:: As Tolerated DS: Diagnosis Discharge Diagnosis (1) Lipoma: Status: Acute Asessment and Plan: Follow-up in my office in 1 to 2 weeks for routine postoperative care
--- NOTE | 2022-04-06 20:53 | W.PM.OP ---
Date of service: 04/07/22 Time of Service: 12:42 Operative Note Operative Note DATE OF PROCEDURE: 04/07/22 PRE-OP DIAGNOSIS: Right chest wall lipoma POST-OP DIAGNOSIS: same PROCEDURE: Excision of right chest wall lipoma and primary closure. SURGEON: Clemente Menard HIDE AND SKIN CLASSER: Raissa Kenney ANESTHESIA TYPE: General:No Airway Refer to Anesthesia Record ESTIMATED BLOOD LOSS: 10 PATHOLOGY: none sent COMPLICATIONS: None Patient was transported to: same day Patient's condition: stable Indications: Poppy is a 71-year-old woman with a suspected lipoma in the infraclavicular region of the right chest wall Findings: Lipoma Procedure Description: I began by prepping and draping the area of the right chest wall. Next, using sterile technique, I administered local anesthetic with epinephrine to establish a generous field block. Next, using a scalpel, I excised incised the skin overlying the lesion. I dissected down through all layers of the skin using sharp technique. Gentle pressure was used to assist with hemostasis. This brought me down to a smooth glistening capsule consistent with a lipoma. The specimen was approximately 6 cm x 4 cm x 3 cm. I performed circumferential dissection of the lipoma off the underlying fascial layer. Once this dissection was complete, I sharply excised the specimen. Next, I held some gentle pressure to assist with hemostasis. There was minimal bleeding, that was definitively controlled with the Bovie. I then carefully examined and irrigated the wound. It was clean, and there was no signs of bleeding. I gently irrigated the surgical site and approximated the deep layers of the skin with interrupted Vicryl's. Finally, I approximated the skin edges with running subcuticular stitch. I applied bandages, and we reviewed basic wound care instructions.
[2022-04-07 09:10] VITALS: BP 133/67; PULSE 55; RESP 16; TEMP 36.2; O2SAT 98
[2022-04-07] MEDS: Lactated Ringers 1,000 ML 80 ML IV (09:32)
--- NOTE | 2022-04-07 10:48 | W.ANESPRE ---
General Info Date of Service Date Performed: 04/07/22 Height: 5 ft 1 in Weight: 80 kg Body Mass Index (BMI): 33.3 Surgical Procedure: Operation Date: 04/07/22 10:55 Proposed Procedure Side Surgeon p Excision and Closure Chest Wall Lipoma Right Clemente Menard MD Meds Allergies and Home Medications Allergies Allergy/AdvReac Type Severity Reaction Status Date / Time amoxicillin trihydrate Allergy Severe Hives Verified 04/07/22 09:18 [From Augmentin] atenolol Allergy Severe bradycardia Verified 04/07/22 09:18 potassium clavulanate Allergy Severe Hives Verified 04/07/22 09:18 [From Augmentin] Sulfa (Sulfonamide Allergy Intermediate shaking, Verified 04/07/22 09:18 Antibiotics) propranolol Allergy Mild bradycardia Verified 04/07/22 09:18 cat dander Allergy Unknown Verified 04/07/22 09:18 nitrofurantoin AdvReac Intermediate Skin Rash Verified 04/07/22 09:18 [From Macrobid] Home Medication Medication Instructions Recorded fish oil-dha-epa 1,200 mg-144 1 ea PO DAILY 03/24/13 mg-216 mg capsule metronidazole 0.75 % topical cream 1 applic topical DAILY PRN 02/08/21 omeprazole 10 mg capsule,delayed 10 mg PO DAILY #90 tab-caps 05/07/21 release loperamide 2 mg capsule 2 mg PO DAILY loose stool 11/25/21 losartan 100 mg tablet 100 mg PO DAILY #90 tabs 01/18/22 aspirin 81 mg tablet,delayed 81 mg PO DAILY 03/15/22 release albuterol sulfate 90 mcg/actuation 2 puff inhalation QID PRN 03/17/22 aerosol inhaler shortness of breath or wheezing #18 grams amlodipine 10 mg tablet 10 mg PO DAILY #90 tabs 03/17/22 Current Visit Medications: Current Medications Generic Name Dose Route Start Last Admin Trade Name Freq PRN Reason Stop Dose Admin Acetaminophen 1,000 mg 04/07/22 06:00 Acetaminophen 500 Mg Tab PO 04/07/22 23:59 PREOP JORDI Celecoxib 200 mg 04/07/22 06:00 Celecoxib 200 Mg Cap PO 04/07/22 23:59 PREOP JORDI Gabapentin 600 mg 04/07/22 06:00 Gabapentin 300 Mg Cap PO 04/07/22 23:59 PREOP JORDI Ringer's Solution 1,000 mls @ 80 mls/hr 04/07/22 06:00 04/07/22 09:32 IV 04/07/22 23:59 80 mls/hr INFUSION JORDI Administration Ondansetron HCl 8 mg/ Sodium 54 mls @ 200 mls/hr 04/06/22 20:54 Chloride IVPB Q6H PRN PRN IV Miscellaneous Supplies 1 each 04/07/22 06:00 Iv Access IV 04/07/22 23:59 DIRECTED JORDI Morphine Sulfate 2 mg 04/06/22 20:54 Morphine 4 Mg/Ml Syr IVP Q1H PRN PRN Sodium Chloride 0 ml 04/07/22 06:00 Normal Saline Flush 10 Ml Syr IV 04/07/22 23:59 PRN PRN Sodium Chloride 0 ml 04/07/22 06:00 Normal Saline 10 Ml Vial IJ 04/07/22 23:59 DIRECTED PRN Sterile Water 0 ml 04/07/22 06:00 Water,Injection,Sterile 10 Ml Vial IJ 04/07/22 23:59 DIRECTED PRN Tramadol HCl 50 mg 04/06/22 20:54 Tramadol 50 Mg Tab PO Q6H PRN PRN Pain PFSH Active Problems Active Problems: Problem Status Onset Code Chronic myringitis, 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 Sensorineural hearing loss, bilateral 03/29/15 H90.3 Hypertension 02/22/17 I10 Esophageal reflux K21.9 Asthma 11/16/14 J45.909 Allergic rhinitis due to pollen 04/19/15 J30.1 Urge incontinence N39.41 Frequent loose stools R19.7 Irregular heart beat I49.9 Fecal incontinence R15.9 Anxiety about health F41.8 Osteoarthritis M19.90 RUQ abdominal pain R10.11 COVID-19 U07.1 Lipoma of anterior chest wall D17.1 Anterior chest wall pain R07.89 Neck muscle strain S16.1XXA Psoas muscle strain S76.019A Medical History Medical History Anal fistula Asymmetrical sensorineural hearing loss Webb's cyst of knee Bradycardia Breast lump Carpal tunnel syndrome of left wrist Cataracts, bilateral Chronic swimmer's ear of left side seeing ENT regulalry 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 ES 7mm. EMBx nl. Environmental allergies Factor V deficiency Factor V Leiden (02/22/17) Fecal incontinence Foreign body in right ear, initial encounter GERD (gastroesophageal reflux disease) Hyperlipidemia Hypertension Obesity (BMI 30.0-34.9) Obstructive sleep apnea Tinnitus Medical History Comments:: Pt states BP increases under anesthesia. Surgical History Surgical History bladder sling Colonoscopy - IV Sedation enterovaginal fistula repair 2007 at [facility] Extraction of cataract 08/13 fistulotomy 2008 H/O eye surgery right hand surgery Trigger finger of all digits of right hand Ring finger S/P release: 11/30/2020 Tobacco Smoking/Tobacco Use Status: Former Tobacco Use Passive smoking exposure: Yes Second hand exposure: Yes Alcohol Alcohol Intake: current Alcohol intake frequency: a few times a week Alcohol type: wine Substance Use Substance use: Never Substance use type: does not use Vital Signs and Lab Results Vital Signs Most Recent Vital Signs in EMR: Most Recent Vital Signs Temp Pulse Resp BP Pulse Ox 36.2 C L 55 L 16 133/67 98 04/07/22 09:10 04/07/22 09:10 04/07/22 09:10 04/07/22 09:10 04/07/22 09:10 Lab Results Blood Type / Crossmatch: No Data to Display Complete Blood Count: White Blood Count 8.74 10^3/uL (4.4-10.8) 03/24/22 10:00 Red Blood Count 5.08 10^6/uL (3.93-5.22) 03/24/22 10:00 Hemoglobin 15.0 g/dL (11.2-15.7) 03/24/22 10:00 Hematocrit 46.2 % (36.0-46.0) H 03/24/22 10:00 Platelet Count 337 10^3/uL (130-400) 03/24/22 10:00 Complete Metabolic Panel: Sodium 138 mmol/L (136-145) 03/24/22 10:00 Potassium 4.1 mmol/L (3.5-5.1) 03/24/22 10:00 Chloride 102 mmol/L (98-107) 03/24/22 10:00 Carbon Dioxide 30.0 mmol/L (21.0-32.0) 03/24/22 10:00 BUN 15 mg/dL (7-18) 03/24/22 10:00 Creatinine 0.8 mg/dL (0.55-1.02) 03/24/22 10:00 Est GFR (CKD-EPI 2020) 79.71 (mL/min/1.73m2) 03/24/22 10:00 Calcium 9.1 mg/dL (8.5-10.1) 03/24/22 10:00 Albumin 3.6 g/dL (3.4-5.0) 03/24/22 10:00 Glucose 93 mg/dL (74-106) 03/24/22 10:00 Liver Function Panel: Alanine Aminotransferase (ALT/SGPT) 23 U/L (14-59) 03/24/22 10:00 Aspartate Amino Transf (AST/SGOT) 15 U/L (15-37) 03/24/22 10:00 Coagulation Panel: No Data to Display Cardiac Panel: No Data to Display Arterial Blood Gas: No Data to Display Venous Blood Gas: No Data to Display Pancreas Panel: No Data to Display Thyroid Panel: No Data to Display Infectious Disease: No Data to Display Blood Cultures: No Data to Display Toxicology Panel: No Data to Display Imaging and Studies Imaging and Studies Study information below may be from another EMR and interpreted by another provider. Please see original notes in EMR for more complete details. EKG Summary: EKG PATIENT NAME: SULY NASH #: [id number] ORDERING PROVIDER: Anita Ng NPACCOUNT #: [id number] PRIMARY CARE PROVIDER:WILLIAM PhD ANITA OLMSTEAD DATE/TIME OF SERVICE: 10/01/20 1024 : 3PERFORMING LOCATION: [facility] APPROVED REPORT Exam: Resting ECG Reason for Exam: BRADYCARDIA/IRREGULAR PULSE Patient Location: O HR:51 bpm ECG Measurements Heart Rate 51 AXIS FL 168 P 50 QRSd 91 QRS -36 QT 463 T62 QTc 427 Conclusion Sinus bradycardia...rate< 60 Left axis deviation...QRS axis (-30,-90) Echocardiogram Summary: Patient Name: SULY NASH #: [id number]: SHANTA Ordering Provider: Anita Ng NPAccount #: [id number]: IGNACIA RAY Primary Care Provider: Anita Ng NPDate of Exam: 06/24/20Sex: F Admission Date: 06/24/20 : 1950 Age: 69 Exam(s) a US:US echocardiogram APPROVED REPORT EXAM: Comprehensive 2D, Doppler, and color-flow Echocardiogram Patient Location: Out-Patient [employer] Technician: Jennifer Carlos RDCS (AE) Indications: Edema, SOB Other Information Study Quality: Adequate Conclusion Normal left ventricular wall thickness and chamber size. Estimated ejection fraction is 60%. There are no segmental wall motion abnormalities Normal right ventricular size and systolic function Both atria are normal in size There are no structural or hemodynamically significant valvular abnormalities Anesthesia Assessment and Plan Anesthesia History Personal History: Other Family History: No Family History of Anesthesia Complications Exercise Tolerance Exercise Tolerance: Metabolic Equivalents>4 Pertinent Negatives Pertinent Negatives: No Symptoms of GERD, No Major Cardiovascular Symptoms or Complaints, No Major Pulmonary Symptoms or Complaints and No History of CVA/TIA Cardiac & Pulmonary Exam Cardiac Exam: Normal S1/S2 Heart Sounds Pulmonary Exam: Clear Bilateral Breath Sounds Implantable Cardiac Device Does patient have a Pacemaker or an ICD?: No Airway Exam Known Difficult Airway: No Mallampati Class: 2 Mouth Opening: Normal (> 3cm) Thyromental Distance: Greater than 3 cm Neck Range of Motion: Full ROM Neck Circumference: Normal Teeth Condition: Normal Dentition ASA Classification ASA Score: ASA 3 Emergency Case?: No NPO Status NPO Status: NPO Clears >2 hours, Solids >8 hours Anesthesia Plan Resuscitation Status: Full Code Anesthesia Technique: General Anesthesia Airway Planned: Natural Airway Monitors Used: Standard Monitors
[2022-04-07] MEDS: Gabapentin 300 MG CAP 600 MG PO (11:45)
[2022-04-07] MEDS: Celecoxib 200 MG CAP PO (11:45)
[2022-04-07] MEDS: Acetaminophen 500 MG TAB 1000 MG PO (11:45)
[2022-04-07 11:59] VITALS: BMI 33.3
[2022-04-07 12:28] VITALS: BP 113/68; PULSE 63; RESP 16; TEMP 36.1; O2SAT 95
[2022-04-07] MEDS: Bupivacaine 0.5% Pres-Free W/EPI 30 ML VIAL (12:36)
--- NOTE | 2022-04-07 12:59 | W.ANESPOSTOP ---
Postoperative Evaluation Date, Time and Location Date Performed: 04/07/22 Time Performed: 12:59 Patient Location: Day Surgery Unit Vital Signs Most Recent Imported Vital Signs: Most Recent Vital Signs Temp Pulse Resp BP Pulse Ox 36.1 C L 63 16 113/68 95 04/07/22 12:28 04/07/22 12:28 04/07/22 12:28 04/07/22 12:28 04/07/22 12:28 Pain Score Most Recent Pain Score: Most Recent Pain Score Pain Level 0 04/07/22 12:28 Assessment Mental Status: Awake (Alert & Oriented to Patient Baseline) Airway and Respiratory Function: Patent airway with normal (patient baseline) respiratory exam Cardiovascular Function: Hemodynamically Stable Hydration Status: Adequately Hydrated Nausea & Vomiting: No Nausea or Vomiting Pain: Pt. Denies Any Pain Peripheral Nerve Block: Patient did not receive a nerve block
[2022-04-07 13:03] VITALS: BP 108/69; PULSE 48; RESP 17; TEMP 36.6; O2SAT 99
== END 2022-04-07 13:40 | disposition home or self-care (01) ==
PROVIDERS: PCP Student in an Organized Health Care Education/Training Program; Visit Provider Surgery
PROC: (CPT 21552; principal; 2022-04-07 10:45)
DX: D17.1 Benign lipomatous neoplasm of skin and subcutaneous tissue of trunk (principal); I10 Essential (primary) hypertension; J45.909 Unspecified asthma, uncomplicated
CPT/HCPCS: 21552; J1100; J2405

== ENCOUNTER → 2022-04-12 09:17 | Outpatient (BNVA) | payer MEDICARE, SELFPAY | PROVIDERS: PCP Student in an Organized Health Care Education/Training Program; Referring Provider Student in an Organized Health Care Education/Training Program; Visit Provider Surgery | DX: Z48.817 Encounter for surgical aftercare following surgery on the skin and subcutaneous tissue (principal) ==

== ENCOUNTER 2022-05-03 05:04 | Outpatient (CLI) | payer MEDICARE, SELFPAY ==
[2022-05-03 15:04] LABS: TSH (W/Ref FT4) 1.51 uIU/mL (0.36-3.74)
[2022-05-03 15:58] LABS: Vitamin D 25 Total 23.1 ng/mL (30-100)
== END 2022-05-03 05:05 | disposition home or self-care (01) ==
PROVIDERS: PCP Student in an Organized Health Care Education/Training Program; Visit Provider Student in an Organized Health Care Education/Training Program
DX: I10 Essential (primary) hypertension (principal); M89.9 Disorder of bone, unspecified
CPT/HCPCS: 36415; 82306; 84443

== ENCOUNTER 2022-09-20 02:08 | Outpatient (CLI) | payer MEDICARE, SELFPAY ==
--- NOTE | 2022-09-20 07:00 | DI.US_ITS ---
Exam(s) US SOFT TISS EXTREMITY/GROIN EXAM: US SOFT TISS EXTREMITY/GROIN CLINICAL HISTORY: Evaluate for possible hematoma or lesion,RT THIGH PAIN,M79.651. TECHNIQUE: Ultrasound was performed using standard protocol. COMPARISON: US US ABDOMEN LIMITED from 04/04/2022 FINDINGS: Images are submitted for interpretation from ultrasound examination of the right groin region. There are 3 benign-appearing lymph nodes in the right groin noted, the largest measuring 3 x 1.8 x 0. 7 cm and exhibiting benign appearance. There is no soft tissue edema and there is no abnormal fluid collection in the groin. No obvious groin hernia evident on these images. Also no evidence of hemat belen. IMPRESSION: Minimal findings in the right groin as described above. DATA REPOSITORY:
== END 2022-09-20 02:28 ==
LOC: DI 02:09
PROVIDERS: PCP Student in an Organized Health Care Education/Training Program; Visit Provider Student in an Organized Health Care Education/Training Program
DX: M79.651 Pain in right thigh (principal)
CPT/HCPCS: 76882

== ENCOUNTER 2022-10-17 01:37 | Outpatient (CLI) | payer MEDICARE, SELFPAY ==
--- NOTE | 2022-10-17 08:00 | DI.RAD_ITS ---
Exam(s) XR HIP RT COMPLETE AP PELVIS EXAM: XR HIP RT COMPLETE AP PELVIS CLINICAL HISTORY: evaluate joint space; r/o bony path, RT THIGH PAIN, RT HIP PAIN, M79.651. TECHNIQUE: 2D digital imaging was performed of the right hip. Two images were obtained. AP pelvis a nd lateral right hip views were obtained. COMPARISON: No exams were available for comparison FINDINGS: BONES: No acute fracture is present. No bony destructive lesion is seen. JOINTS: No dislocation present. There is joint space narrowing present in the right hip. There is an osteophyte at the inferior aspect of the right femoral head. SOFT TISSUE: Normal. IMPRESSION: Mild degenerative changes of the right hip. DATA REPOSITORY: RADIATION DOSE DELIVERED:
== END 2022-10-17 01:57 ==
LOC: DI 01:38
PROVIDERS: PCP Student in an Organized Health Care Education/Training Program; Visit Provider Student in an Organized Health Care Education/Training Program
DX: M16.11 Unilateral primary osteoarthritis, right hip (principal)
CPT/HCPCS: 73502

== ENCOUNTER → 2022-11-29 13:24 | Outpatient (BNVA) | payer MEDICARE, SELFPAY | PROVIDERS: PCP Student in an Organized Health Care Education/Training Program; Referring Provider Student in an Organized Health Care Education/Training Program; Visit Provider Surgery | DX: K21.9 Gastro-esophageal reflux disease without esophagitis (principal); Z86.010 Personal history of colon polyps | CPT/HCPCS: 99213 ==

== ENCOUNTER → 2022-12-22 08:03 | Outpatient (BNVA) | payer MEDICARE, SELFPAY | PROVIDERS: PCP Student in an Organized Health Care Education/Training Program; Referring Provider Physical Therapist; Visit Provider Student in an Organized Health Care Education/Training Program | DX: M47.818 Spondylosis without myelopathy or radiculopathy, sacral and sacrococcygeal region (principal) | CPT/HCPCS: 99213 ==

== ENCOUNTER 2022-12-25 02:45 | Outpatient (CLI) | payer MEDICARE, SELFPAY ==
--- NOTE | 2022-12-27 07:30 | W.NOCTURNAL ---
Date of service: 12/25/22 Time of Service: 23:12 Nocturnal Oximetry Note: Overnight Oximetry Amount of time analyzed: 7 hours 53 min on CPAP with no supplemental O2 Number of minutes under 88%: 6.9 SAMANTHA:2.2 Appearance of oxygen saturation pattern:Normal appearing SpO2 curve Recommendation: can consider adding 1LPM supplemental O2 through CPAP and retest nocturnal oximetry Angie Silverio MD Pulmonary & Critical Care Medicine
== END 2022-12-25 02:46 | disposition home or self-care (01) ==
LOC: RT 02:45
PROVIDERS: PCP Student in an Organized Health Care Education/Training Program; Visit Provider Student in an Organized Health Care Education/Training Program
DX: J44.9 Chronic obstructive pulmonary disease, unspecified (principal)
CPT/HCPCS: 94762

== ENCOUNTER 2022-12-29 06:29 | Day surgery (SDC) | payer MEDICARE, SELFPAY ==
--- NOTE | 2022-12-28 15:39 | W.PM.DSUDISC ---
Date of service: 12/29/22 Time of Service: 08:17 Discharge Plan Disposition Patient Disposition: Home Condition: Good Discharge Details Reason For Visit: EGD and colonoscopy Attending Provider: Clemente Menard Primary Care Provider: Jaclyn Abarca Home Meds and New Rx's Prescriptions: Continued metronidazole 0.75 % cream 1 applic topical DAILY PRN albuterol sulfate 90 mcg/actuation HFA aerosol inhaler 2 puff IH QID PRN (Reason: shortness of breath or wheezing) Qty: 18 1RF glucosamine-chondroitin 900 mg tablet 900 mg PO DAILY Qty: 90 1RF Rx Instructions: Trial - please review availability with patient betamethasone dipropionate 0.05 % cream 1 applic topical BID PRN (Reason: lacy leg scaling (lichen planus)) Qty: 30 0RF Rx Instructions: Refilling Derm Rx: Use for 2 weeks at a time. fish oil-dha-epa 1 EACH capsule 1 ea PO DAILY aspirin 81 mg tablet,delayed release (DR/EC) 81 mg PO DAILY magnesium oxide 400 mg magnesium capsule 400 mg PO QHS Qty: 90 3RF Rx Instructions: Take (1) every evening .. helps with sleep, headaches, muscle pains omeprazole 10 mg capsule,delayed release(DR/EC) 10 mg PO DAILY Qty: 90 3RF Rx Instructions: Continue for esophageal reflux amlodipine 10 mg tablet 10 mg PO HS losartan 100 mg tablet 100 mg PO HS loperamide [Imodium A-D] 2 mg capsule 2 mg PO QHS Discontinued polyethylene glycol 3350 17 gram/dose powder 238 g PO DAILY Qty: 238 0RF bisacodyl [Dulcolax (bisacodyl)] 5 mg tablet,delayed release (DR/EC) 5 mg PO ONCE Qty: 4 0RF Discharge Instructions Instructions: Gastric Polyps (GEN), Diverticulosis (GEN), Diverticulosis Diet (GEN) Additional Instructions: Poppy, We were able to complete your procedures today without any difficulty. 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 I measured the abnormal tissue at just about 2 cm in length. I performed biopsies in this area to assess for any changes. To the naked eye, however, I do not see anything worrisome in your esophagus. Your stomach does have a number of large polyps. They are located in a portion of your stomach where they commonly occur. Aside from the number and the size, I do not see any alarming features of any of the polyps in particular. I did remove 5 of these polyps to serve as a commercial pest control representative sample. These will be tested for any changes associated with cancers, and as soon as I have those results I will let you know. I also perform some biopsies of your stomach to look for other causes of stomach irritation. I suspect that your longstanding use of omeprazole may be associated with the polyps. In that regard, I do think we should try to stop the omeprazole. Like we talked about, I will switch you over to Pepcid, and we can add some sucralfate to see if that helps improve your symptoms overall. Your colonoscopy was fine. You do have some diverticulosis. These are weak spots in the colon wall that typically accumulate with age. Sometimes they become infected and inflamed, and patients usually experience that as pain in the left side of their abdomen and across the lower midportion. When that happens, we tried to treat it with antibiotics. I would encourage you to try to incorporate some more fiber in your diet, stay well-hydrated, and avoid symptoms of constipation if they develop. I did not see any polyps or tumors in your large intestine. Once I have the results of the biopsies, I will be in touch. 1. If tolerated, consume a soft, low fiber diet for 1-2 days. 2[address] Do not drive, drink alcohol, operate machinery, make critical decisions, or do activities that require coordination or balance for 24 hours. 3. Because air was put into your colon during the procedure, expelling air from your rectum (passing gas or farting) is normal. 4. You may not have a bowel movement for 1-3 days because of the colonoscopy prep. This is normal. 5. You may experience a sore throat for 24 to 48 hours. You may use throat lozenges or gargle with warm salt water to relieve the discomfort. 6. Because air was put into your stomach during the procedure, you may experience some belching. 7. Go directly to the emergency room if you notice any of the following: Develop chills (warm to touch), or if you have a thermometer and your temperature is above 101 Difficulty breathing or difficultly swallowing Persistent vomiting Severe abdominal pain, other than gas cramps Severe chest pain Black, tarry stools Any bleeding ? exceeding one tablespoon 8. Call your physician if the site where your intravenous was started becomes red, swollen, painful, and warm to touch. 9. Your physician has reviewed your pre-procedure medications. Please continue to take those medications as previously ordered. You will be given specific information/education regarding any changes to your medications before leaving. Activity:: Activity as Tolerated Diet:: As Tolerated Discharge Orders Discharge Orders: Discharge Order (Routine); Ordered 12/28/22 Ordered By: Clemente Menard DS: Diagnosis Discharge Diagnosis (1) Kiran esophagus: Status: Acute Asessment and Plan: I will follow-up on biopsy
--- NOTE | 2022-12-28 15:41 | ENDO_ITS ---
Date of service: 12/29/22 Time of Service: 08:42 Endoscopy Report DATE OF PROCEDURE: 12/29/22 PRE-OP DIAGNOSIS: barretts esophagus POST-OP DIAGNOSIS: other (Kiran's esophagus; gastric polyps; diverticulosis) PROCEDURE: EGD with polypectomy and biopsies and colonoscopy SURGEON: Clemente Menard ANESTHESIA TYPE: General:No Airway ESTIMATED BLOOD LOSS: 15 PATHOLOGY: other (Gastric biopsies, gastric polyp removal x5, biopsies of GE junction) COMPLICATIONS: None DISPOSITION: same day INDICATIONS: Poppy is a 72-year-old woman whose had longstanding gastroesophageal reflux disease, as well as a family history of esophageal cancer. She is also due for screening colonoscopy. PREP: Miralax/Dulcolax PROCEDURE START TIME: 07:39 PROCEDURE END TIME: 08:09 COLONOSCOPY RETRACTION TIME: 10 FINDINGS: Short segment Kiran's esophagus extending from 33 to 35 cm, numerous gastric polyps; diverticulosis PROCEDURE DESCRIPTION: After the initiation of monitored anesthetic care, and with the assistance of a bite block, I advanced a standard gastroscope through the mouth past the hypopharynx and into the esophagus.? Under the direct vision of the scope, I advanced down the esophagus into the stomach.? There was short segment Kiran's esophagus extending from 33 cm at the incisors down to 35 cm at the incisors. Once I entered the stomach, I performed a brief inspection. There were numerous gastric polyps. They covered the majority of the gastric fundus and body. The antrum was spared. I would estimate the largest polyps to be around 2-1/2 cm. I performed snare polypectomy of 5 large polyps. The total number of polyps p recluded completion polypectomy. I advanced the camera over towards the gastric antrum and pylorus. As previously mentioned. There was no evidence of any polyps here. I advanced through the pylorus into the duodenum. The duodenum was healthy-appearing. I was able to visualize the ampulla Vater. This all appeared normal. Brought the camera back up into the stomach and desufflated the gas. Next, I brought the camera up to the GE junction, and performed biopsies of the Kiran's esophagus. Once this was complete, I gently withdrew the camera along the length of the esophagus, taking great care to inspect the mucosa in its entirety. I saw no other abnormalities. We then moved Poppy into the left lateral decubitus position. I began with an external anorectal exam.? Perineum and skin were normal, as was the anal verge.? There was no evidence of external hemorrhoids.? Next, I performed a digital rectal exam.? I did not appreciate any abnormal findings.? Next, I advanced a colonoscope into the rectal vault.? I performed retroflexion.? This was normal.? Using insufflation, I then advanced the colonoscope beyond the rectal folds and into the sigmoid colon before advancing towards the cecum.? The quality of the prep was excellent.? The scope was noted to be in the cecum by identification of the ileocecal valve and appendiceal orifice.? I then began withdrawing the colonoscope using repeated irrigation as necessary for full evaluation of the colonic mucosa. ?Once the scope was withdrawn to the level of the rectum, great care was taken to examine portions of the rectal folds.? I saw no signs of tumors or polyps along the length of the large intestine. Finally, the scope was withdrawn and the patient was brought to the same-day surgery recovery unit as the anesthetic wore off. ?The findings and instructions were shared with the patient prior to discharge.
--- NOTE | 2022-12-29 05:45 | ANES.PREOP_ITS ---
General Info Date of Service Date Performed: 12/29/22 Height: 5 ft 1 in Weight: 83.007 kg Body Mass Index (BMI): 34.5 Surgical Procedure: Operation Date: 12/29/22 07:35 Proposed Procedure Side Surgeon p Colonoscopy/Gastroscopy Clemente Menard MD Meds Allergies and Home Medications Allergies Allergy/AdvReac Type Severity Reaction Status Date / Time amoxicillin trihydrate Allergy Severe Hives Verified 12/29/22 06:31 [From Augmentin] potassium clavulanate Allergy Severe Hives Verified 12/29/22 06:31 [From Augmentin] cat dander Allergy Unknown Verified 12/29/22 06:31 atenolol AdvReac Severe bradycardia Verified 12/29/22 06:31 nitrofurantoin AdvReac Intermediate Skin Rash Verified 12/29/22 06:31 [From Macrobid] Sulfa (Sulfonamide AdvReac Intermediate shaking, Verified 12/29/22 06:31 Antibiotics) propranolol AdvReac Mild bradycardia Verified 12/29/22 06:31 Home Medication Medication Instructions Recorded fish oil-dha-epa 1,200 mg-144 1 ea PO DAILY 03/24/13 mg-216 mg capsule metronidazole 0.75 % topical cream 1 applic topical DAILY PRN 02/08/21 aspirin 81 mg tablet,delayed 81 mg PO DAILY 03/15/22 release albuterol sulfate 90 mcg/actuation 2 puff inhalation QID PRN 03/17/22 aerosol inhaler shortness of breath or wheezing #18 grams magnesium oxide 400 mg PO QHS #90 tab-caps 09/14/22 omeprazole 10 mg capsule,delayed 10 mg PO DAILY #90 caps 10/12/22 release antiarthritic combination no.2 900 900 mg PO DAILY #90 tabs 10/13/22 mg tablet (glucosamine-chondroitin) betamethasone dipropionate 0.05 % 1 applic topical BID PRN lacy leg 12/15/22 topical cream scaling (lichen planus) #30 grams amlodipine 10 mg tablet 10 mg PO HS 12/28/22 losartan 100 mg tablet 100 mg PO HS 12/28/22 loperamide 2 mg capsule (Imodium 2 mg PO QHS loose stool 12/29/22 A-D) Current Visit Medications: Current Medications Generic Name Dose Route Start Last Admin Trade Name Freq PRN Reason Stop Dose Admin Hyoscyamine Sulfate 0.125 mg 12/28/22 15:42 Hyoscyamine 0.125 Mg Sl/Oral/Chew SL 01/27/23 15:41 DIRECTED PRN Ondansetron HCl 4 mg 12/28/22 15:42 Ondansetron 4 Mg/2 Ml Vial IVP 01/27/23 15:41 Q4H PRN PRN Nausea / Vomiting PFSH Active Problems Active Problems: Problem Status Onset Code Kiran esophagus K22.70 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 Bradycardia Preventative health care Z00.00 Right hip pain M25.551 Right thigh pain M79.651 Lichen simplex chronicus L28.0 FHx: esophageal cancer Z80.0 Dysphagia R13.10 Family hx of lung cancer Z80.1 At high risk for osteoporosis Z91.89 Osteopenia M85.80 Chronic myringitis, 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 Sensorineural hearing loss, bilateral 03/29/15 H90.3 Hypertension 02/22/17 I10 Esophageal reflux K21.9 Asthma 11/16/14 J45.909 Allergic rhinitis due to pollen 04/19/15 J30.1 Urge incontinence N39.41 Fecal incontinence R15.9 Anal fistula Frequent loose stools R19.7 Anxiety about health F41.8 Osteoarthritis M19.90 Lipoma of anterior chest wall D17.1 Anterior chest wall pain R07.89 Medical History Medical History Asymmetrical sensorineural hearing loss Webb's cyst of knee Bradycardia Breast lump stable nodule per mammo, 2021 Carpal tunnel syndrome of left wrist Cataracts, bilateral Chronic swimmer's ear of left side seeing ENT regularly, Dx Chronic Myringitis 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 ES 7mm. EMBx nl. Factor V Leiden (02/22/17) Foreign body in right ear, initial encounter GERD (gastroesophageal reflux disease) Hyperlipidemia Irregular heart beat 09/2020- holter- sinus rhythms; exacerbated by anxiety Neck muscle strain Presumed 2' grief, poor sleep, hugging (dtr recently , suddenly) Obesity (BMI 30.0-34.9) Obstructive sleep apnea Psoas muscle strain Possible, based on inner rt inguinal catch pain .. resolves .. could this be associated with RUQ pain?? RUQ abdominal pain Tinnitus Medical History Comments:: Pt states BP increases under anesthesia. Surgical History Surgical History bladder sling Colonoscopy - IV Sedation enterovaginal fistula repair 2007 at [facility] Extraction of cataract 08/13 fistulotomy 2008 H/O eye surgery right hand surgery Trigger finger of all digits of right hand Ring finger S/P release: 11/30/2020 Tobacco Smoking/Tobacco Use Status: Former Tobacco Use Passive smoking exposure: Yes Second hand exposure: Yes Alcohol Alcohol Intake: current Alcohol intake frequency: a few times a week Alcohol type: wine Substance Use Substance use: Never Substance use type: does not use Vital Signs and Lab Results Vital Signs Most Recent Vital Signs in EMR: Temp Pulse Resp BP Pulse Ox 36.5 C 62 17 134/74 96 12/29/22 06:24 12/29/22 06:24 12/29/22 06:24 12/29/22 06:24 12/29/22 06:24 Lab Results Blood Type / Crossmatch: No Data to Display Complete Blood Count: No Data to Display Complete Metabolic Panel: No Data to Display Liver Function Panel: No Data to Display Coagulation Panel: No Data to Display Cardiac Panel: No Data to Display Arterial Blood Gas: No Data to Display Venous Blood Gas: No Data to Display Pancreas Panel: No Data to Display Thyroid Panel: No Data to Display Infectious Disease: No Data to Display Blood Cultures: No Data to Display Toxicology Panel: No Data to Display Imaging and Studies Imaging and Studies Study information below may be from another EMR and interpreted by another provider. Please see original notes in EMR for more complete details. EKG Summary: 10/18: Conclusion Sinus bradycardia...rate< 60 Left axis deviation...QRS axis (-30,-90) Echocardiogram Summary: 06/20: Normal left ventricular wall thickness and chamber size. Estimated ejection fraction is 60%. There are no segmental wall motion abnormalities Normal right ventricular size and systolic function Both atria are normal in size There are no structural or hemodynamically significant valvular abnormalities Other Study Summary:: Holter, 2020: Sinus mostly, occ PVC. Anesthesia Assessment and Plan Anesthesia History Personal History: Other Family History: No Family History of Anesthesia Complications Exercise Tolerance Exercise Tolerance: Metabolic Equivalents>4 Cardiac & Pulmonary Exam Cardiac Exam: Normal S1/S2 Heart Sounds Pulmonary Exam: Clear Bilateral Breath Sounds Implantable Cardiac Device Does patient have a Pacemaker or an ICD?: No Airway Exam Known Difficult Airway: No Mallampati Class: 2 Mouth Opening: Normal (> 3cm) Thyromental Distance: Greater than 3 cm Neck Range of Motion: Full ROM Neck Circumference: Normal Teeth Condition: Normal Dentition ASA Classification ASA Score: ASA 2 Emergency Case?: No NPO Status NPO Status: NPO Clears >2 hours, Solids >8 hours Anesthesia Plan Resuscitation Status: Full Code Anesthesia Technique: General Anesthesia Airway Planned: Natural Airway Monitors Used: Standard Monitors Preoperative Comments:: 72 yo female with GERD and family history of eso ca for EGD and screening colo. Sig PMHx: HTN (amlodipine, losartan), RAJENDRA, GERD/dysphagia/barretts (omeprazole 10), asthma (allergy related, albuterol), factor V leiden, former smoker, occ EtOH. Previous Anes: - lipoma, prop, natural airway, no issues.
[2022-12-29 06:24] VITALS: BP 134/74; PULSE 62; RESP 17; TEMP 36.5; O2SAT 96
[2022-12-29] MEDS: Lactated Ringers 1,000 ML 80 ML IV (06:48)
[2022-12-29 07:27] VITALS: BMI 34.5
[2022-12-29 08:15] VITALS: BP 105/62; PULSE 53; RESP 17; TEMP 36.3; O2SAT 97
[2022-12-29 08:45] VITALS: BP 136/66; PULSE 51; RESP 17; TEMP 36.5; O2SAT 97
--- NOTE | 2022-12-29 09:09 | W.ANESPOSTOP ---
Postoperative Evaluation Date, Time and Location Date Performed: 12/29/22 Time Performed: 09:09 Patient Location: Day Surgery Unit Vital Signs Most Recent Imported Vital Signs: Most Recent Vital Signs Temp Pulse Resp BP Pulse Ox 36.3 C L 53 L 17 105/62 97 12/29/22 08:15 12/29/22 08:15 12/29/22 08:15 12/29/22 08:15 12/29/22 08:15 Pain Score Most Recent Pain Score: Most Recent Pain Score Pain Level 0 12/29/22 08:15 Assessment Mental Status: Awake (Alert & Oriented to Patient Baseline) Airway and Respiratory Function: Patent airway with normal (patient baseline) respiratory exam Cardiovascular Function: Hemodynamically Stable Hydration Status: Adequately Hydrated Nausea & Vomiting: No Nausea or Vomiting Pain: Pt. Denies Any Pain Peripheral Nerve Block: Patient did not receive a nerve block
--- NOTE | 2022-12-29 09:46 | STOM_PTH ---
PATIENT: Poppy Coyne LOC: [facility] U#:[id number] AGE/SX: 72/F ROOM: RE12/29/[address]: Clemente Menard MD : [id number] BED: DIS: 12/29/2022 SPEC #: [id number] RECD: 12/29/22 12:47 STATUS: HAILEY RE #: [id number] ROMAN: 12/29/22 09:[address]: Clemente Menard DEPT: Surgical Specimen RECD BY: Sanjuanita Ayala ENTERED: 12/29/22 12:48 SP TYPE: STOMACH OTHR DR: Jaclyn Abarca DO Tissues: 1 - STOMACH BIOPSY 2 - STOMACH BIOPSY 3 - ESOPHAGUS BIOPSY Procedures: GROSS AND MICRO LEVEL 4 Comments: [id number]
== END 2022-12-29 09:05 | disposition home or self-care (01) ==
PROVIDERS: PCP Student in an Organized Health Care Education/Training Program; Visit Provider Surgery
PROC: (CPT 43251; principal; 2022-12-29 07:30)
DX: K22.70 Barrett's esophagus without dysplasia (principal); K21.9 Gastro-esophageal reflux disease without esophagitis; Z80.0 Family history of malignant neoplasm of digestive organs; K31.7 Polyp of stomach and duodenum; K57.30 Diverticulosis of large intestine without perforation or abscess without bleeding
CPT/HCPCS: 43251; 43239; G0105; 88305; J2704

== ENCOUNTER → 2023-09-05 11:21 | Outpatient (BNVA) | payer MEDICARE, SELFPAY | PROVIDERS: PCP Student in an Organized Health Care Education/Training Program; Referring Provider Student in an Organized Health Care Education/Training Program; Visit Provider Surgery | DX: D13.1 Benign neoplasm of stomach (principal) | CPT/HCPCS: 99213 ==

== ENCOUNTER 2023-09-17 09:07 | Day surgery (SDC) | payer MEDICARE, SELFPAY ==
--- NOTE | 2023-09-16 19:17 | W.PM.DSUDISC ---
Date of service: 09/17/23 Time of Service: 12:19 Discharge Plan Disposition Patient Disposition: Home Condition: Good Discharge Details Reason For Visit: EGD Attending Provider: Clemente Menard Primary Care Provider: Jaclyn Abarca Home Meds and New Rx's Prescriptions: Continued metronidazole 0.75 % cream 1 applic topical DAILY PRN cholecalciferol (vitamin D3) 50 mcg (2,000 unit) capsule 50 mcg PO DAILY betamethasone dipropionate 0.05 % cream 1 applic topical BID PRN (Reason: lacy leg scaling (lichen planus)) Qty: 30 0RF Rx Instructions: Refilling Derm Rx: Use for 2 weeks at a time. fish oil-dha-epa 1 EACH capsule 1 ea PO DAILY aspirin 81 mg tablet,delayed release (DR/EC) 81 mg PO DAILY magnesium oxide 400 mg magnesium capsule 400 mg PO QHS Qty: 90 3RF Rx Instructions: Take (1) every evening .. helps with sleep, headaches, muscle pains losartan 100 mg tablet 100 mg PO HS Qty: 90 3RF famotidine 40 mg tablet 40 mg PO DAILY Qty: 90 1RF Rx Instructions: Re-starting 40mg as per Gen Surg albuterol sulfate 90 mcg/actuation HFA aerosol inhaler 2 puff IH QID PRN (Reason: shortness of breath or wheezing) Qty: 18 1RF sucralfate 1 gram tablet 1 g PO QACHS Qty: 120 3RF amlodipine 10 mg tablet 10 mg PO HS Discharge Instructions Additional Instructions: Poppy, your upper endoscopy went very smoothly today. There is marked improvement with regards to your gastric polyps. There are still some evident, but not nearly what you had before. I think we should continue with your current medication regimen, and based on the short segment of Kiran's esophagus (which looks about the same as last time) I recommend a repeat EGD in 5 years. Obviously, if any of the symptoms come back or troubling, we could adjust this as necessary. 1. If tolerated, consume a soft, low fiber diet for 1-2 days. 2[address] Do not drive, drink alcohol, operate machinery, make critical decisions, or do activities that require coordination or balance for 24 hours. 4. You may experience a sore throat for 24 to 48 hours. You may use throat lozenges or gargle with warm salt water to relieve the discomfort. 5. Because air was put into your stomach during the procedure, you may experience some belching. 6. Go directly to the emergency room if you notice any of the following: Develop chills (warm to touch), or if you have a thermometer and your temperature is above 101 Difficulty breathing or difficultly swallowing Persistent vomiting Severe abdominal pain, other than gas cramps Severe chest pain Black, tarry stools Any bleeding ? exceeding one tablespoon 7. Call your physician if the site where your intravenous was started becomes red, swollen, painful, and warm to touch. 8. Your physician has reviewed your pre-procedure medications. Please continue to take those medications as previously ordered. You will be given specific information/education regarding any changes to your medications before leaving. Activity:: Activity as Tolerated Diet:: As Tolerated Discharge Orders Discharge Orders: Discharge Order (Routine); Ordered 09/16/23 Ordered By: Clemente Menard DS: Diagnosis Discharge Diagnosis (1) Gastric polyposis: Status: Acute Asessment and Plan: Improved gastric polyposis. Continue with current therapy, and follow-up EGD in 5 years for short segment Kiran's esophagus
--- NOTE | 2023-09-16 19:19 | W.PM.ENDDOP ---
Date of service: 09/17/23 Time of Service: 12:21 Endoscopy Report DATE OF PROCEDURE: 09/17/23 PRE-OP DIAGNOSIS: gastric polyps POST-OP DIAGNOSIS: same PROCEDURE: EGD SURGEON: Clemente Menard ANESTHESIA TYPE: General:No Airway ESTIMATED BLOOD LOSS: 0 PATHOLOGY: none sent COMPLICATIONS: None DISPOSITION: same day INDICATIONS: Gina is a 72 year old woman with a history and GERD and dyspespis who has gastric polyposis. She needs a surveillance EGD PROCEDURE START TIME: 12:02 PROCEDURE END TIME: 12:06 FINDINGS: Marked improvement of gastric polyposis PROCEDURE DESCRIPTION: After the initiation of anesthesia, and with the assistance of a bite block, I advanced a standard gastroscope through the mouth past the hypopharynx and into the esophagus.? Under the direct vision of the scope, I advanced down the esophagus towards the stomach.? The GE junction measured 35 cm from the incisors. Again seen is short segment of Kiran's, with no other worrisome features. Narrowband imaging was used to assist with analysis here. The camera was advanced down into the stomach, the stomach was insufflated until the rugae were obliterated. I performed retroflexion. There is marked improvement of the gastric polyposis in all parts of the stomach. The camera was turned antegrade, and advanced down around the incisura angularis towards the pylorus. The antrum was spared of any polyps. I advanced across the pylorus into the duodenum, which appeared normal. The camera was then brought back up into the stomach, and I examined the polyp burden 1 last time. All polyps were well less than half a centimeter, with most less than a quarter of a centimeter. None of the clinical features appear worrisome. Therefore, I emptied the stomach, brought the camera out along the length of the esophagus. Will plan for repeat EGD in 5 years based on short segment Kiran's esophagus.
[2023-09-17 09:15] VITALS: BP 152/74; PULSE 54; RESP 16; TEMP 36.3; O2SAT 99
[2023-09-17] MEDS: Lactated Ringers 1,000 ML 80 ML IV (09:56)
--- NOTE | 2023-09-17 11:15 | W.ANESPRE ---
General Info Date of Service Date Performed: 09/17/23 Height: 5 ft Weight: 82.1 kg Body Mass Index (BMI): 35.3 Surgical Procedure: Operation Date: 09/17/23 10:35 Proposed Procedure Side Surgeon p Gastroscopy Clemente Menard MD Meds Allergies and Home Medications Allergies Allergy/AdvReac Type Severity Reaction Status Date / Time amoxicillin trihydrate Allergy Severe Hives Verified 09/17/23 09:35 [From Augmentin] potassium clavulanate Allergy Severe Hives Verified 09/17/23 09:35 [From Augmentin] cat dander Allergy Unknown Wheezing Verified 09/17/23 09:35 atenolol AdvReac Severe bradycardia Verified 09/17/23 09:35 nitrofurantoin AdvReac Intermediate Skin Rash Verified 09/17/23 09:35 [From Macrobid] Sulfa (Sulfonamide AdvReac Intermediate shaking, Verified 09/17/23 09:35 Antibiotics) propranolol AdvReac Mild bradycardia Verified 09/17/23 09:35 Home Medication Medication Instructions Recorded fish oil-dha-epa 1,200 mg-144 1 ea PO DAILY 03/24/13 mg-216 mg capsule metronidazole 0.75 % topical cream 1 applic topical DAILY PRN 02/08/21 aspirin 81 mg tablet,delayed 81 mg PO DAILY 03/15/22 release magnesium oxide 400 mg PO QHS #90 tab-caps 09/14/22 betamethasone dipropionate 0.05 % 1 applic topical BID PRN lacy leg 12/15/22 topical cream scaling (lichen planus) #30 grams amlodipine 10 mg tablet 10 mg PO HS 12/28/22 famotidine 40 mg tablet 40 mg PO DAILY #90 tabs 04/20/23 losartan 100 mg tablet 100 mg PO HS #90 tabs 04/20/23 albuterol sulfate 90 mcg/actuation 2 puff inhalation QID PRN 05/01/23 aerosol inhaler shortness of breath or wheezing #18 grams sucralfate 1 gram tablet 1 g PO QACHS #120 tabs 05/28/23 cholecalciferol (vitamin D3) 50 50 mcg PO DAILY 09/05/23 mcg (2,000 unit) capsule Current Visit Medications: Current Medications Generic Name Dose Route Start Last Admin Trade Name Freq PRN Reason Stop Dose Admin Hyoscyamine Sulfate 0.125 mg 09/16/23 19:20 Hyoscyamine 0.125 Mg Sl/Oral/Chew SL 10/16/23 19:19 DIRECTED PRN Ringer's Solution 1,000 mls @ 80 mls/hr 09/17/23 06:00 09/17/23 09:56 IV 09/17/23 23:59 80 mls/hr INFUSION JORDI Administration IV Miscellaneous Supplies 1 each 09/17/23 06:00 Iv Access IV 09/17/23 23:59 DIRECTED JORDI Ondansetron HCl 4 mg 09/16/23 19:20 Ondansetron 4 Mg/2 Ml Vial IVP 10/16/23 19:19 Q4H PRN PRN Nausea / Vomiting Sodium Chloride 0 ml 09/17/23 06:00 Normal Saline Flush 10 Ml Syr IV 09/17/23 23:59 PRN PRN Sodium Chloride 0 ml 09/17/23 06:00 Normal Saline 10 Ml Vial IJ 09/17/23 23:59 DIRECTED PRN Sterile Water 0 ml 09/17/23 06:00 Water,Injection,Sterile 10 Ml Vial IJ 09/17/23 23:59 DIRECTED PRN PFSH Active Problems Active Problems: Problem Status Onset Code Gastric polyposis K31.7 Chronic otitis externa of left ear H60.62 Normal colonoscopy ~12/2022 Diverticulosis ~12/2022 K57.90 Fundic gland polyps of stomach, benign ~12/29/22 D13.1 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 Preventative health care Z00.00 Right hip pain M25.551 Lichen simplex chronicus L28.0 FHx: esophageal cancer Z80.0 Right thigh pain M79.651 Dysphagia R13.10 Family hx of lung cancer Z80.1 At high risk for osteoporosis Z91.89 Osteopenia M85.80 Chronic myringitis, 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 Anterior chest wall pain R07.89 Lipoma of anterior chest wall D17.1 Osteoarthritis M19.90 Anxiety about health F41.8 Fecal incontinence R15.9 Frequent loose stools R19.7 Urge incontinence N39.41 Allergic rhinitis due to pollen 04/19/15 J30.1 Asthma 11/16/14 J45.909 Esophageal reflux K21.9 Hypertension 02/22/17 I10 Sensorineural hearing loss, bilateral 03/29/15 H90.3 Anal fistula Bradycardia Medical History Medical History Psoas muscle strain Possible, based on inner rt inguinal catch pain .. resolves .. could this be associated with RUQ pain?? 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 denies Diplopia Obstructive sleep apnea Diverticulosis Cataracts, bilateral Endometrial thickening on ultra sound 10/2016. ES 7mm. EMBx nl. Medical History Comments:: Pt states her HR was low after anesthesia. Surgical History Surgical History History of esophagogastroduodenoscopy (~12/2022) H/O eye surgery Trigger finger of all digits of right hand Ring finger S/P release: 11/30/2020 right hand surgery fistulotomy 2009 enterovaginal fistula repair 2007 at [facility] bladder sling Colonoscopy - IV Sedation (~12/2022) Extraction of cataract 08/13 Tobacco Smoking/Tobacco Use Status: Former Tobacco Use Passive smoking exposure: Yes Second hand exposure: Yes Alcohol Alcohol Intake: current Alcohol intake frequency: a few times a week Alcohol type: wine Substance Use Substance use: Never Substance use type: does not use Vital Signs and Lab Results Vital Signs Most Recent Vital Signs in EMR: Most Recent Vital Signs Temp Pulse Resp BP Pulse Ox 36.3 C L 54 L 16 152/74 H 99 09/17/23 09:15 09/17/23 09:15 09/17/23 09:15 09/17/23 09:15 09/17/23 09:15 Lab Results Blood Type / Crossmatch: No Data to Display Complete Blood Count: No Data to Display Complete Metabolic Panel: No Data to Display Liver Function Panel: No Data to Display Coagulation Panel: No Data to Display Cardiac Panel: No Data to Display Arterial Blood Gas: No Data to Display Venous Blood Gas: No Data to Display Pancreas Panel: No Data to Display Thyroid Panel: No Data to Display Infectious Disease: No Data to Display Blood Cultures: No Data to Display Toxicology Panel: No Data to Display Imaging and Studies Imaging and Studies Study information below may be from another EMR and interpreted by another provider. Please see original notes in EMR for more complete details. EKG Summary: 10/18: Conclusion Sinus bradycardia...rate< 60 Left axis deviation...QRS axis (-30,-90) Echocardiogram Summary: 06/20: Normal left ventricular wall thickness and chamber size. Estimated ejection fraction is 60%. There are no segmental wall motion abnormalities Normal right ventricular size and systolic function Both atria are normal in size There are no structural or hemodynamically significant valvular abnormalities Other Study Summary:: Holter, 2020: Sinus mostly, occ PVC. Anesthesia Assessment and Plan Anesthesia History Personal History: No History of Anesthesia Complications Family History: No Family History of Anesthesia Complications Exercise Tolerance Exercise Tolerance: Metabolic Equivalents>4 Pertinent Negatives Pertinent Negatives: No Symptoms of GERD Cardiac & Pulmonary Exam Cardiac Exam: Normal S1/S2 Heart Sounds Pulmonary Exam: Clear Bilateral Breath Sounds Implantable Cardiac Device Does patient have a Pacemaker or an ICD?: No Airway Exam Known Difficult Airway: No Mallampati Class: 2 Mouth Opening: Normal (> 3cm) Thyromental Distance: Greater than 3 cm Neck Range of Motion: Full ROM Neck Circumference: Normal Teeth Condition: Normal Dentition ASA Classification ASA Score: ASA 2 Emergency Case?: No NPO Status NPO Status: NPO Clears >2 hours, Solids >8 hours Anesthesia Plan Resuscitation Status: Full Code Anesthesia Technique: General Anesthesia Airway Planned: Natural Airway Monitors Used: Standard Monitors Preoperative Comments:: From last Preop: 72 yo female with GERD and family history of eso ca for EGD and screening colo. Sig PMHx: HTN (amlodipine, losartan), RAJENDRA, GERD/dysphagia/barretts (omeprazole 10), asthma (allergy related, albuterol), factor V leiden, former smoker, occ EtOH. Previous Anes: - lipoma, prop, natural airway, no issues.
[2023-09-17 11:17] VITALS: BMI 35.3
[2023-09-17 12:11] VITALS: BP 123/84; PULSE 63; RESP 16; TEMP 36.5; O2SAT 95
[2023-09-17 12:42] VITALS: BP 146/79; PULSE 50; RESP 15; TEMP 36.5; O2SAT 96
--- NOTE | 2023-09-17 12:50 | W.ANESPOSTOP ---
Postoperative Evaluation Date, Time and Location Date Performed: 09/17/23 Time Performed: 12:50 Patient Location: Day Surgery Unit Vital Signs Most Recent Imported Vital Signs: Most Recent Vital Signs Temp Pulse Resp BP Pulse Ox 36.5 C 50 L 15 146/79 H 96 09/17/23 12:42 09/17/23 12:42 09/17/23 12:42 09/17/23 12:42 09/17/23 12:42 Pain Score Most Recent Pain Score: Most Recent Pain Score Pain Level 0 09/17/23 12:42 Assessment Mental Status: Awake (Alert & Oriented to Patient Baseline) Airway and Respiratory Function: Patent airway with normal (patient baseline) respiratory exam Cardiovascular Function: Hemodynamically Stable Hydration Status: Adequately Hydrated Nausea & Vomiting: No Nausea or Vomiting Pain: Pt. Denies Any Pain Peripheral Nerve Block: Patient did not receive a nerve block
== END 2023-09-17 12:58 | disposition home or self-care (01) ==
LOC: SUR 09:08
PROVIDERS: PCP Student in an Organized Health Care Education/Training Program; Visit Provider Surgery
PROC: 0DJ68ZZ Inspection of Stomach, Via Natural or Artificial Opening Endoscopic (ICD-10-PCS; CPT 43235; principal; 2023-09-17 10:30)
DX: K31.7 Polyp of stomach and duodenum (principal); I10 Essential (primary) hypertension; G47.33 Obstructive sleep apnea (adult) (pediatric); K21.9 Gastro-esophageal reflux disease without esophagitis; K22.70 Barrett's esophagus without dysplasia
CPT/HCPCS: 43239; J2704

== ENCOUNTER → 2023-10-19 00:38 | Outpatient (CLI) | payer MEDICARE, SELFPAY ==
--- NOTE | 2023-10-19 06:30 | DI.DEXA_ITS ---
Exam(s) XR DEXA BONE DENSITY W/WO CLAUS EXAM: XR DEXA BONE DENSITY W/WO CLAUS CLINICAL HISTORY: eval bone density, POSTMENOPAUSAL AT RISK, OSTEOPENIA, LOW VIT D, Z78.0 TECHNIQUE: Hologic Horizon C densitometer analysis of left hip, lumbar spine and right forearm. La teral survey image of the thoracic and lumbar spine. COMPARISON: CR XR DEXA BONE DENSITY W/WO CLAUS from and 2005 FINDINGS: Lateral view of the thoracic and lumbar spine shows no evidence of compression fractures. Bone mineral density measurements of the lumbar spine correspond to a total T-score of -0.3, in the normal range. This is not significantly changed from 2020 but represents a 3.2 percent decrease comp ared to 2005. Bone mineral density measurements of the left hip correspond to a total T-score of -1.7. This repre sents a 12.8 percent decrease from 2020 and 14.2 percent decrease from 2005.. The femoral neck T-sco re is -1.5, in the osteopenic range.. Theright forearm bone mineral density measurements correspond to a T-score of the distal 3rd of -3.2, in the osteoporotic range. This represents a 3.2 percent decrease compared to 2020 and a 6.5 percen t decrease compared with 2013. Of the forearm was not analyzed in 2005 . IMPRESSION: Normal bone mineral density of the lumbar spine. Osteopenia of the hip. Osteoporosis of the forearm .
== END ==
PROVIDERS: PCP Student in an Organized Health Care Education/Training Program; Visit Provider Student in an Organized Health Care Education/Training Program
DX: Z78.0 Asymptomatic menopausal state (principal); Z13.820 Encounter for screening for osteoporosis; M85.89 Other specified disorders of bone density and structure, multiple sites
CPT/HCPCS: 77080

== ENCOUNTER 2024-02-19 00:57 | Outpatient (CLI) | payer MEDICARE, SELFPAY ==
--- NOTE | 2024-02-19 07:15 | DI.MAMMO_ITS ---
Exam(s) MAMMO SCREENING EXAM: MAMMO SCREENING CLINICAL HISTORY: screening,z12.39, family h/o breast ca. TECHNIQUE: Bilateral full field digital CC and MLO mammographic images were obtained with 3D tomosyn thesis and utilizing computer aided detection (CAD). COMPARISON: Prior mammograms were reviewed. FINDINGS: There has been no significant change in the appearance and distribution of the fibroglandular tissue. Asymmetric benign densities left breast are unchanged from prior mammograms. There are no new spiculated masses nor malignant appearing microcalcification groups. There is no significant architectural distortion nor skin thickening-retraction. IMPRESSION: No radiographic evidence of malignancy. BI-RADS Category 2 - Benign Findings Breast Density - Category A - Almost entirely fatty Breast density Category C or D implies that the patient has dense breast tissue. Dense breast tissue can make it harder to find cancer on a mammogram. Dense breast tissue is also associated with an incr eased risk of breast cancer. This information about the result of the mammogram report was provided to the patient to raise their awareness. Use this report when you speak with the patient about their risks for breast cancer, which includes their family history. At that time, you may recommend additional screening tests (Ultrasoun d or MRI) as these tests may add significant information. A negative radiographic report should not delay biopsy if a dominant or clinically suspicious mass is present. Up to ten percent of cancers are not identified on mammography. A negative report may reinforce clinical impression. Adenosis and dense breasts may obscure an underlying neoplasm. False positive reports average 6 to 10%. Patient will receive a letter notifying them of these results.
== END 2024-02-19 01:17 ==
LOC: DI 00:57
PROVIDERS: PCP Student in an Organized Health Care Education/Training Program; Visit Provider Student in an Organized Health Care Education/Training Program
DX: Z12.31 Encounter for screening mammogram for malignant neoplasm of breast (principal)
CPT/HCPCS: 77063; 77067

== ENCOUNTER 2024-03-10 03:19 | Outpatient (CLI) | payer MEDICARE, SELFPAY ==
[2024-03-10 09:40] LABS: Anion Gap 8.2 mmol/L (3-11); BUN 11 mg/dL (7-18); CO2 29.8 mmol/L (21.0-32.0); CREATININE 0.9 mg/dL (0.55-1.02); Calcium 9.2 mg/dL (8.5-10.1); Calculated LDL 133 mg/dL (<100); Chloride 104 mmol/L (98-107); Cholesterol 211 mg/dL (<200); Estimated GFR 68.35 (mL/min/1.73m2); Glucose 93 mg/dL (74-106); HDL Cholesterol 54 mg/dL (40-60); Potassium 4.3 mmol/L (3.5-5.1); Sodium 142 mmol/L (136-145); Triglyceride 120 mg/dL (<150); Vitamin D 25 Total 27.5 ng/mL (30-100)
== END 2024-03-10 03:20 | disposition home or self-care (01) ==
LOC: LBO 03:19
PROVIDERS: PCP Student in an Organized Health Care Education/Training Program; Visit Provider Student in an Organized Health Care Education/Training Program
DX: Z13.220 Encounter for screening for lipoid disorders; K21.9 Gastro-esophageal reflux disease without esophagitis; R79.89 Other specified abnormal findings of blood chemistry; E55.9 Vitamin D deficiency, unspecified; I10 Essential (primary) hypertension; Z13.0 Encounter for screening for diseases of the blood and blood-forming organs and certain disorders involving the immune mechanism
CPT/HCPCS: 36415; 80048; 80061; 82306; 85018

== ENCOUNTER 2024-04-18 15:51 | Outpatient (CLI) | payer MEDICARE, SELFPAY ==
--- NOTE | 2024-04-18 15:05 | DI.RAD_ITS ---
Exam(s) XR CHEST 2V PA LATERAL EXAM: XR CHEST 2V PA LATERAL CLINICAL HISTORY: R05.3 Chronic cough. TECHNIQUE: 2D digital imaging was performed. COMPARISON: No exams were available for comparison FINDINGS: 2 views: Heart size is normal. The mediastinum is not widened. Lungs are clear. No infiltrates nor pleural effusions. IMPRESSION: No acute pulmonary findings. DATA REPOSITORY: RADIATION DOSE DELIVERED:
== END 2024-04-18 16:11 ==
LOC: DI 15:52
PROVIDERS: PCP Nurse Practitioner Family; Visit Provider Physician Assistant Medical
DX: R05.3 Chronic cough (principal)
CPT/HCPCS: 71046

== ENCOUNTER 2024-07-21 14:34 | Outpatient (CLI) | payer MEDICARE, SELFPAY ==
--- NOTE | 2024-07-21 14:30 | RT.EKG_ITS ---
APPROVED REPORT Exam: Resting ECG Reason for Exam: Chest pressure; nauseau Patient Location: O HR:53 bpm ECG Measurements Heart Rate 53 AXIS IN [id number] P [id number] QRSd 119 QRS -51 QT 479 T 56 QTc 450 Conclusion Junctional rhythm...absent P waves, slow V-rate Inferior infarct, old...Q >35mS, II III aVF
== END 2024-07-21 14:35 | disposition home or self-care (01) ==
LOC: DI.KIM 14:34
PROVIDERS: PCP Family Medicine; Visit Provider Family Medicine
DX: R07.89 Other chest pain (principal)
CPT/HCPCS: 93010

== ENCOUNTER 2024-07-24 01:07 | Outpatient (CLI) | payer MEDICARE, SELFPAY ==
--- NOTE | 2024-07-24 05:45 | ETT_ITS ---
APPROVED REPORT Exam: Exercise Treadmill Patient Location: Out-Patient Room/Bed: Stress Nurse: Gogo Harvey RN Ordering Provider:YESSICA PALENCIA, Contact Number: [phone] BMI: 35.34 Baseline Rhythm: Sinus Rhythm Indications: Episode of chest pain, fatigue Medical History Medical History: COVID 19, irregular heart beat, factor V leiden, GERD, obesity, HLD, COPD, RAJENDRA, HTN, asthma Cardiac Medications: Albuterol sulfate, amlodipine, aspirin, famotidine, losartan, magnesium oxide, n itro, sucralafate Allergies: Propranolol, augmentin, sulfa, atenolol, nitrofurantoin, cat dander Cardiac Risk Factors: Family hx, HTN, HLD, asthma, former smoker, obesity Previous Cardiac Procedures: None Pretest Chest Pain Characteristics: None Exercise History: Indeterminate Physical Disabilities: None Lung Sounds: Clear to auscultation Heart Sounds: Regular Stress Test Details Test: Exercise stress testing was performed using a Hector protocol. Rest Stress HR Resting HR Supine: 61 bpm Max Heart Rate (APMHR): 149 bpm Resting HR Standin bpm Target HR (85% APMHR): 127 bpm Max HR Achieved: 145 bpm % of APMHR: 97 Recovery HR: 75 bpm HR response to stress: Accelerated HR response to stress BP Resting BP Supine: 150/90 mmHg Resting BP Standin/88 mmHg Max BP: 198/98 mmHg Recovery BP: 140/80 mmHg BP response to stress: Normal blood pressure response to stress. ECG Resting ECG: Sinus Rhythm Ectopy: None Stress ECG: Sinus Tachycardia ST Change: No significant ST segment changes noted Arrhythmia: Occasional PAC's Recovery ECG: Sinus Rhythm Recovery ST Change: No significant ST segment changes noted Recovery Arrhythmia: Occasional PAC's, occasional PVC's Clinical Reason for Termination: Target HR Achieved Stress Symptoms: Mod SOB Exercise duration: 03 min03 sec Highest Stage Reached: Stage 2: 2.5 mph at 12% grade. Exercise capacity: 4.70 METs Angina Score: None Matthew Treadmill Score: 2.6 Rate Pressure Product: 26145 Stress ECG Conclusion 1. Resting electrocardiogram showed low voltage late transition 2. Patient exercised on the Hector protocol and completed a workload of 4.7 METS 3. Rapid heart rate response to exercise, patient achieved 97% of predicted heart rate for age within 3 minutes 4. There was no electrocardiographic evidence of myocardial ischemia 5. There were no significant dysrhythmias Matthew Treadmill Score is 2.6 which is Moderate risk. Stress Test Summary STAGE Time (mins) Speed (mph) Grade (%) HR BP SpO2 SYMPTOMS METS Supine 61 150/90 95% Standing 63 154/88 1 3 1.7 10 136 190/90 96% 4.5 2 6 2.5 12 124 7 1 min recovery 124 198/98 97% 3 min recovery 83 160/92 97% 6 min recovery 75 140/80
== END 2024-07-24 01:27 ==
LOC: DI 01:07
PROVIDERS: PCP Family Medicine; Visit Provider Internal Medicine Cardiovascular Disease
DX: R07.89 Other chest pain (principal)
CPT/HCPCS: 93016; 93018; 93017

== ENCOUNTER 2024-08-21 13:34 | Outpatient (REF) | payer MEDICARE, SELFPAY | END 2024-08-21 13:35 | disposition home or self-care (01) | LOC: LBN 13:34 | PROVIDERS: PCP Family Medicine; Visit Provider Family Medicine | DX: R30.0 Dysuria (principal); R39.15 Urgency of urination; Z87.440 Personal history of urinary (tract) infections; R82.89 Other abnormal findings on cytological and histological examination of urine | CPT/HCPCS: 87077; 87086 ==

== ENCOUNTER 2024-10-17 23:06 | Observation (INO) | payer MEDICARE, SELFPAY ==
[2024-10-17 23:09] VITALS: BP 162/66; PULSE 73; RESP 16; O2SAT 97
[2024-10-17 23:10] VITALS: BP 162/66; PULSE 73; O2SAT 96
[2024-10-17 23:11] VITALS: PULSE 69; O2SAT 97
--- NOTE | 2024-10-17 23:20 | ED.GENADUL_ITS ---
Discharge Plan Disposition Patient Disposition: Admit to [facility] Condition: Serious Discharge Details Clinical Impression: Acute appendicitis Admit Date/Time: 10/18/24 02:33 Admit Provider: Tino Muhammad Attending Provider: Tino Muhammad Primary Care Provider: Ander Medina ED Provider: Aria Dunne General Mode of arrival: ambulatory . Date/Time Provider Initiated Documentation: 10/17/24 23:07 . Limitations to Documentation: no limitations . Information obtained by: patient and family . HPI Narrative: 73yo F with hx HTN, asthma, GERD, prior enterovaginal fistula repair, presenting for LLQ abdominal pain. Has had moderate pain in LLQ x 1 day with associated nausea and decreased PO intake. Vomited once today, nonblood nonbiliuous. Last BM today, normal, no blood/melena, no constipation or diarrhea. Has not taken anything at home for symptoms. Otherwise in her usual state of health with no fevers, chils, rash, dysuria, hematuria, flank pain, back pain, or other concerns. Related Data Home Medications ?Medication ?Instructions ?Recorded ?Confirmed fish oil-dha-epa 1,200 mg-144 1 ea PO DAILY 03/24/13 0 10/17/24 mg-216 mg capsule aspirin 81 mg tablet,delayed 81 mg PO DAILY 03/15/22 0 10/17/24 release magnesium oxide 400 mg PO QHS #90 tab-caps 0 09/14/22 10/17/24 albuterol sulfate 90 mcg/actuation 2 puff inhalation Q ID PRN 05/01/23 10/17/24 aerosol inhaler shortness of breath or wheez ing #18 grams cholecalciferol (vitamin D3) 50 50 mcg PO DAILY 10/17/24 mcg (2,000 unit) capsule metronidazole 0.75 % topical cream 1 applic topical DA ANDREW PRN rosacea 10/21/23 10/17/24 flare #45 grams famotidine 40 mg tablet 40 mg PO DAILY #90 tabs 05/0210/17/24 nitroglycerin 0.6 mg sublingual 0.6 mg sublingual Q5M PRN chest 07/21/24 10/17/24 tablet pain #20 tabs amlodipine 10 mg tablet See Rx Instructions .Route 0 07/28/24 10/17/24 .COMPLEX #90 tabs losartan 100 mg tablet 100 mg PO HS #90 tabs 10/17/24 sucralfate 1 gram tablet 1 g PO QACHS #120 tabs 09/2310/17/24 Previous Rx's ?Medication ?Instructions ?Recorded magnesium oxide 400 mg PO QHS #90 tab-caps 0 09/14/22 albuterol sulfate 90 mcg/actuation 2 puff inhalation Q ID PRN 05/01/23 aerosol inhaler shortness of breath or wheez ing #18 grams metronidazole 0.75 % topical cream 1 applic topical DA ANDREW PRN rosacea 10/21/23 flare #45 grams famotidine 40 mg tablet 40 mg PO DAILY #90 tabs 05/02 05/24 nitroglycerin 0.6 mg sublingual 0.6 mg sublingual Q5M PRN chest 07/21/24 tablet pain #20 tabs amlodipine 10 mg tablet See Rx Instructions .Route 0 07/28/24 .COMPLEX #90 tabs losartan 100 mg tablet 100 mg PO HS #90 tabs sucralfate 1 gram tablet 1 g PO QACHS #120 tabs 09/23 Allergies Allergy/AdvReac Type Severity Reaction Status Date / Time amoxicillin trihydrate (From Allergy Severe Hives Verified 10/17/24 23:12 Augmentin) potassium clavulanate (From Allergy Severe Hives Verified 10/17/24 23:12 Augmentin) cat dander Allergy Unknown Wheezing Verified 10/17/24 23:12 atenolol AdvReac Severe bradycardia Verified 10/17/24 23:12 nitrofurantoin (From AdvReac Intermediate Skin Rash Verified 10/17/24 23:12 Macrobid) Sulfa (Sulfonamide AdvReac Intermediate shaking, Verified 10/17/24 23:12 Antibiotics) propranolol AdvReac Mild bradycardia Verified 10/17/24 23:12 General Stated Complaint: Abd Prob MATT: 3 Review of Systems Narrative: see HPI Exam Narrative Exam Narrative: General: Alert, well appearing, well nourished, in no acute distress. Head: Normocephalic, atraumatic Neck: Trachea midline, ?Neck supple. ENT: ?MMM.? Cardiac: ?RRR, no murmurs appreciated Resp: No respiratory distress. CTAB. Abd: ?Soft, non-distended, LLQ TTP with no rebound or guarding : ?No suprapubic tenderness. No CVA tenderness. Extremities: ?No deformities.? No peripheral edema. Neurologic: GCS 15. ? Moves all extremities freely against gravity Course Vital Signs Vital signs: Vital Signs Pulse 73 10/17/24 23:09 Respiratory Rate 16 10/17/24 23:09 Blood Pressure 162/66 H 10/17/24 23:09 Pulse Oximetry 97 10/17/24 23:09 Pulse 73 10/17/24 23:09 Respiratory Rate 16 10/17/24 23:09 Blood Pressure 162/66 H 10/17/24 23:09 Pulse Oximetry 97 10/17/24 23:09 Oxygen Delivery Method Room Air 10/17/24 23:09 Oxygen Flow Rate 0 10/17/24 23:09 Pain Level 6 10/17/24 23:09 Medical Decision Making 73yo F with hx HTN, asthma, GERD, prior enterovaginal fistula repair, presenting for LLQ abdominal pain x 1 day with single episode of emesis. Hypertensive on arrival, vital signs otherwise reassuring. Mild LLQ tenderness on exam with no rebound or guarding. Not septic. Not peritoneal. Will give tyelnol, toradol, zofran for symptoms while awiating results of workup. Labs reviewed as below, CBC with leukocytosis to 16 (nonspecific), CMP with no actionable abnormalities, Mg normal. UA not suggestive of UTI and no hematuria to suggest nephrolithiasis. CT abd pelvis with IV as well as PO contrast (given hx enterovaginal fistula) ordered and independently reviewed. no obstruction or free fluid on my view, radiology read below discussed with reading radiologist with acute appendicitis. On reassessment her vital signs remain reassuring; pain has improved after medication. She is slightly tender in the LLQ and does have some signficant tenderness in the RLQ as well on rexamination. No rebound or guarding. Discussed with surgery Dr. Coburn who requested patient be admitted to medicine service with plan for OR this morning. Discussed with [facility] hospitalist Dr. Muhammad; patient accepted to medicine service. Awaiting admission orders and transfer to the floor. Lab Data Lab results reviewed: Yes I reviewed the patient's lab results. Labs: Laboratory Tests Range/Units 10/17/24 10/17/24 23:23 23:30 WBC (4.4-10.8) 10^3/uL 16.01 H RBC (3.93-5.22) 10^6/uL 5.25 H Hgb (11.2-15.7) g/dL 15.5 Hct (36.0-46.0) % 46.8 H MCV (80-95) fL 89 MCH (27.0-33.0) pg 29.5 MCHC (32.0-36.0) % 33.1 RDW (11.7-14.6) % 12.9 Plt Count (130-400) 10^3/uL 313 MPV (8.0-11.0) fL 9.9 Immature Gran % % 0.4 Neutrophils % % 86.2 Lymphocytes % % 8.0 Monocytes % % 5.1 Eosinophils % % 0.1 Basophils % % 0.2 Nucleated RBC % (0.0-0.3) % 0.0 Absolute Neutrophils (1.2-6.7) 10^3/uL 13.80 H Absolute Lymphocytes (1.2-3.4) 10^3/uL 1.28 Absolute Monocytes (0.1-0.8) 10^3/uL 0.82 H Absolute Eosinophils (0.0-0.7) 10^3/uL 0.02 Absolute Basophils (0.0-0.2) 10^3/uL 0.03 Sodium (136-145) mmol/L 137 Potassium (3.5-5.1) mmol/L 3.8 Chloride (98-107) mmol/L 100 Carbon Dioxide (21.0-32.0) mmol/L 29.7 Anion Gap (3-11) mmol/L 7.3 BUN (7-18) mg/dL 10 Creatinine (0.55-1.02) mg/dL 0.9 Est GFR (CKD-EPI 2020) (mL/min/1.73m2) 68.35 Glucose (74-106) mg/dL 117 H Calcium (8.5-10.1) mg/dL 8.9 Magnesium (1.8-2.4) mg/dL 1.9 Total Bilirubin (0.2-1.0) mg/dL 0.6 AST (15-37) U/L 15 ALT (14-59) U/L 26 Alkaline Phosphatase (46-116) U/L 122 H Total Protein (6.4-8.2) g/dL 7.9 Albumin (3.4-5.0) g/dL 3.7 Urine Color (Yellow) Yellow Urine Clarity (Clear) Clear Urine pH (5-8) 7.0 Ur Specific Edwards (1.005-1.025) 1.020 Urine Protein (Neg-Trace) mg/dL Trace Urine Ketones (Negative) mg/dL Trace H Urine Blood (Negative) Trace-intact H Urine Nitrite (Negative) Negative Urine Bilirubin (Negative) Negative Urine Urobilinogen (Up to 0.2) mg/dL 0.2 Ur Leukocyte Esterase (Negative) Trace H Urine RBC (0-2) HPF 0-2 Urine WBC (0-5) HPF 3-5 Ur Epithelial Cells (Negative) HPF Few Urine Crystals (Negative) HPF Negative Urine Bacteria (Negative) HPF Moderate Urine Casts (Negative) LPF Negative Urine Mucus (Negative) Trace Ur Culture Indicated? 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 Osteopenia (Acute) Chronic myringitis, left ear (Acute) Allergic rhinitis due to pollen (Acute 04/19/15) Asthma (Acute 11/16/14) exacerbated by allergies Esophageal reflux (Acute) Hypertension (Acute 02/22/17) Sensorineural hearing loss, bilateral (Acute 03/29/15) Medical History Diverticulosis (~12/2022) Lipoma of anterior chest wall Seen by surg Fecal incontinence post 3 surgeries with communications engineer .. (Lamotil used qHS, ik, 09/2022) Frequent loose stools 12/2019-since fistulectomy in [place] Had previously been seen in urogyn [facility] Urge incontinence Anal fistula Family hx-breast malignancy Sister Family history of asthma Family hx of lung cancer Bro (lung, brain).. and 2nd bro (esoph) & recent Sis (esoph) Psoas muscle strain Possible, based on inner rt inguinal catch pain .. resolves .. could this be associated with RUQ pain?? 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 denies Diplopia Obstructive sleep apnea Diverticulosis Endometrial thickening on ultra sound 10/2016. ES 7mm. EMBx nl. Surgical History History of esophagogastroduodenoscopy (~2023) 12/2022, 08/2023 H/O eye surgery Trigger finger of all digits of right hand Ring finger S/P release: 11/30/2020 right hand surgery fistulotomy 2009 enterovaginal fistula repair 2007 at [facility] bladder sling Colonoscopy - IV Sedation (~12/2022) Extraction of cataract 08/13 Family History Mother , age 76 COPD (chronic obstructive pulmonary disease) Father , 70s Heart disease Sister Breast cancer Sister Esophageal cancer Brother Factor V deficiency Lung cancer Brother Depression Daughter Alcohol abuse Daughter No problems noted. Maternal Grandfather , age 46 COPD (chronic obstructive pulmonary disease) Paternal Grandfather No problems noted. Maternal Grandmother , age 92 No problems noted. Paternal Grandmother No problems noted. Social History Smoking/Tobacco Use Status: Former Tobacco Use Quit Date: 04/30/01 Tobacco: How many years used: 30 Second Hand Exposure: Yes Smoking risk assessment performed?: Yes Alcohol Intake: current Alcohol Intake frequency: a few times a week Alcohol type: wine Drug use: Never Substance use type: does not use Adopted: No Caregiver/Support person: No Foster care: No Household members: spouse and family Housing: house Number of Children: 2 number of grandchildren: 4 Communication Needs: Hard of Hearing Education Level: high school Do you need help understanding health information?: Rarely Pets and animals: No Sexually active: No Do you think of yourself as: straight/heterosexual Current gender identity: female What is your relationship status?: How often do you talk on the phone with friends or family?: three or more times per week How often do you get together with friends or relatives?: three or more times per week How often do you attend buddhism or presybeterian services?: 4 or more times per year Do you belong to any clubs or organized social groups?: no Panel score (0-1 are the most socially isolated patients): 3 What type of physical activity do you participate in: walking Duration: > 90 minutes/day Frequency: 3-4 times per week Loretta/Congregational: Sabianism Special loretta needs: No Seatbelt use: always Helmet use: No Drive intox or ride w/intox otr flatbed company truck driver: No Do you feel safe at home: Yes Do you feel safe in your relationship?: Yes
[2024-10-17 23:28] LABS: Abs Immature Grans 0.06 10^3/uL (0.0-0.06); Absolute Lymphocyte Count 1.28 10^3/uL (1.2-3.4); Basophils % 0.2 %; Eosinophils % 0.1 %; HCT 46.8 % (36.0-46.0); HGB 15.5 g/dL (11.2-15.7); Immature Grans % 0.4 %; MCH 29.5 pg (27.0-33.0); MCHC 33.1 % (32.0-36.0); MCV 89 fL (80-95); MPV 9.9 fL (8.0-11.0); Monocytes % 5.1 %; Neutrophils % 86.2 %; Platelet Count 313 10^3/uL (130-400); RBC 5.25 10^6/uL (3.93-5.22); RDW 12.9 % (11.7-14.6); RDW-SD 42.5 fL; WBC 16.01 10^3/uL (4.4-10.8)
[2024-10-17 23:29] LABS: Absolute Basophil Count 0.03 10^3/uL (0.0-0.2); Absolute Eosinophil Count 0.02 10^3/uL (0.0-0.7); Absolute Monocyte Count 0.82 10^3/uL (0.1-0.8)
[2024-10-17] MEDS: ACETAMINOPHEN 1,000 MG/100 ML BAG 400 MG IVPB (23:31)
[2024-10-17] MEDS: Ketorolac 15 MG/ML VIAL IVP (23:32)
[2024-10-17] MEDS: Ondansetron 4 MG/2 ML VIAL IVP (23:32)
[2024-10-17 23:38] LABS: Bilirubin Negative (Negative); Blood Trace-intact (Negative); Clarity Clear (Clear); Glucose Negative (Negative); Ketones Trace mg/dL (Negative); Leukocyte Esterase Trace (Negative); Nitrite Negative (Negative); Urobilinogen 0.2 mg/dL (Up to 0.2)
[2024-10-17] MEDS: Omnipaque 350 MG/ML 50 ML BTL PO (23:41)
[2024-10-17] MEDS: Breeza Beverage 473 ML BTL PO ×2 (23:42→23:43)
[2024-10-17 23:46] LABS: ALT 26 U/L (14-59); AST 15 U/L (15-37); Albumin 3.7 g/dL (3.4-5.0); Alkaline Phosphatase 122 U/L (46-116); Anion Gap 7.3 mmol/L (3-11); BUN 10 mg/dL (7-18); Bilirubin, Total 0.6 mg/dL (0.2-1.0); CO2 29.7 mmol/L (21.0-32.0); CREATININE 0.9 mg/dL (0.55-1.02); Calcium 8.9 mg/dL (8.5-10.1); Chloride 100 mmol/L (98-107); Estimated GFR 68.35 (mL/min/1.73m2); Glucose 117 mg/dL (74-106); Magnesium 1.9 mg/dL (1.8-2.4); Potassium 3.8 mmol/L (3.5-5.1); Sodium 137 mmol/L (136-145); Total Protein 7.9 g/dL (6.4-8.2)
[2024-10-17 23:50] LABS: Bacteria Moderate HPF (Negative); C & S Indicated? No; Casts Negative LPF (Negative); Crystals Negative HPF (Negative); Epithelial Cells Few HPF (Negative); Mucus Trace (Negative); RBC 0-2 HPF (0-2)
[2024-10-18] VITALS (35 sets, daily range): BP systolic 88–161; BP diastolic 30–90; PULSE 46–73; RESP 11–20; TEMP 36–36.8; O2SAT 91–100; BMI 33.9
[2024-10-18] MEDS: Omnipaque 350 MG/ML 100 ML BTL 75 ML IJ (01:21)
[2024-10-18] MEDS: Normal Saline - Diluent 50 ML VIAL IJ (01:22)
--- NOTE | 2024-10-18 01:24 | DI.CT_ITS ---
Exam(s) CT ABDOMEN PELVIS W EXAM: CT ABDOMEN PELVIS W CLINICAL HISTORY: LLQ TTP, N/V x 1 day, hx enterovag fistula repair TECHNIQUE: Imaging Protocol: Axial computed tomography images with coronal and sagittal reformatted images were created and reviewed. CONTRAST MATERIAL: Intravenous: Omnipaque 350 Contrast volume:75 mL Oral: Yes COMPARISON: CT CT ABDOMEN PELVIS W from 05/20/2020 FINDINGS: ABDOMEN: Lung Bases: No acute abnormality. Liver: Normal density. No measurable mass. Portal, Superior Mesenteric, and Splenic Veins: Unremarkable. Gallbladder and Biliary Tract: No radiodense calculus or dilation. Pancreas: Normal density, no abnormal calcifications or inflammatory process. Spleen: Normal. Adrenals: No masses seen. Kidneys: Normal size, contour and axis. No radiodense stones or obstructive uropathy. Small cysts are seen in the kidneys. No follow-up is recommended. Abdominal Aorta: Abdominal portion non-dilated. Atherosclerotic calcification is present. Bowel: There is diverticulosis of the colon but no evidence of acute diverticulitis. There is no evidence of bowel obstruction. The appendix is enlarged measuring 1.8 cm in diameter. There is an appendicoliths present. Fabiola appendiceal inflammatory changes are present. The findings are consistent with a appendicitis. Peritoneal Cavity: No ascites, collection or mesenteric inflammatory response. No free air.No abdominal or pelvic abscess is present. Lymph Nodes: Within normal limits. Bones: Within normal limits for the patient's age. Soft Tissues: Unremarkable. PELVIS: Bladder: Symmetric distention, no gross wall thickening. Reproductive Organs: Unremarkable as visualized. Lymph Nodes: Within normal limits. Bones: Within normal limits for the patient's age. IMPRESSION: 1. Findings consistent with an acute appendicitis with appendicoliths. There is no abscess or free air. 2. The preliminary [facility] report was reviewed. RADIATION DOSE DELIVERED: 556.67mGy.cm Total DLP DATA REPOSITORY: All CT scans at this facility are submitted to the National Radiology Data Registry (NRDR) Dose Index Registry (DIR) with the [employer] (ACR). RADIATION OPTIMIZATION: All CT scans at this facility use at least one of these dose optimization techniques: automated exposure control; mA and/or kV adjustment per patient size (includes targeted exams where dose is matched to clinical indication); or iterative reconstruction.
--- NOTE | 2024-10-18 01:48 | DI.[facility]_ITS ---
Addendum created by Aguila Blanco MD on 10/18/2024 2:11:06 AM EDT: Findings discussed with ALICIA FOY MD at time of interpretation. Initial report created on 10/18/2024 1:48:30 AM EDT: PROCEDURE INFORMATION: Exam: CT Abdomen And Pelvis With Contrast Exam date and time: 10/18/2024 12:57 AM Age: 73 years old Clinical indication: Nausea and vomiting; Abdominal pain; Localized; Left lower quadrant (llq); Prior surgery; Surgery date: 6+ months; Llq ttp, n/v x 1 day, HX enterovag fistula repair TECHNIQUE: Imaging protocol: Computed tomography of the abdomen and pelvis with contrast. Radiation optimization: All CT scans at this facility use at least one of these dose optimization techniques: automated exposure control; mA and/or kV adjustment per patient size (includes targeted exams where dose is matched to clinical indication); or iterative reconstruction. Contrast material: [id number]; Contrast volume: 75 ml; Contrast route: INTRAVENOUS (IV); Other contrast: Oral, [id number], 50; COMPARISON: CT ABDOMEN PELVIS W 05/20/2020 8:57 AM FINDINGS: Diaphragm: Small hiatal hernia. Liver: Normal. No mass. Gallbladder and biliary ducts: Normal. No calcified stones. No ductal dilation. Pancreas: Unremarkable. Spleen: Normal. Adrenal glands: Normal. No mass. Kidneys and ureters: Normal. No hydronephrosis. Stomach and bowel: Colonic diverticulosis. No diverticulitis. Appendix: Acute appendicitis: The appendix is fluid-filled and dilated to 1.2 cm in caliber with an obstructing appendicolith in its proximal lumen and mild periappendiceal inflammation. No pneumoperitoneum or abscess to indicate perforation. Intraperitoneal space: See Appendix finding. Vasculature: Unremarkable. Lymph nodes: Unremarkable. Urinary bladder: Unremarkable as visualized. Reproductive: Unremarkable as visualized. Bones/joints: Unremarkable. No acute fracture. Soft tissues: Unremarkable. IMPRESSION: Acute appendicitis: The appendix is fluid-filled and dilated to 1.2 cm in caliber with an obstructing appendicolith in its proximal lumen and mild periappendiceal inflammation. No pneumoperitoneum or abscess to indicate perforation. Dictated and Authenticated by: Aguila Blanco MD. Orderin Uzair Knapp MD
--- NOTE | 2024-10-18 02:38 | W.PM.HP.N ---
Date of service: 10/18/24 Time of Service: 02:39 Assessment and Plan Assessment and plan (1) Acute appendicitis: Status: Acute Assessment and plan: Patient is n.p.o. started on ertapenem will give pain control. General surgery consultation has been placed. Patient does not appear to need further cardiac restratification. (2) Factor V Leiden: Assessment and plan: This was found during chart review. Recommend starting anticoagulation as soon as possible postoperatively. Patient is on SCDs currently. History of Present Illness History of Present Illness Chief Complaint: abd pain Narrative: This is a 73-year-old female who is in fairly good health presents to the ED with a 2-day history of bilateral lower quadrant pain as well as nausea and vomiting. While she was in the ED a CT scan was done which was indicative of appendicitis and she was subsequently mated to the hospital service for further evaluation and treatment. ED physician has reached out to Dr. Coburn of the general surgery service who is aware and asked that we admit the patient. Per my discussion with the patient, she states that she has had general anesthesia before without difficulty. Patient states that she can walk up a flight of stairs without shortness of breath. Patient denies any signs or symptoms of coronary artery disease at this time including chest pain shortness of breath or numbness. 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 Osteopenia (Acute) Chronic myringitis, left ear (Acute) Allergic rhinitis due to pollen (Acute 04/19/15) Asthma (Acute 11/16/14) exacerbated by allergies Esophageal reflux (Acute) Hypertension (Acute 02/22/17) Sensorineural hearing loss, bilateral (Acute 03/29/15) Medical History Diverticulosis (~12/2022) Lipoma of anterior chest wall Seen by surg Fecal incontinence post 3 surgeries with milk runner .. (Lamotil used qHS, ik, 09/2022) Frequent loose stools 12/2019-since fistulectomy in [place] Had previously been seen in urogyn [facility] Urge incontinence Anal fistula Family hx-breast malignancy Sister Family history of asthma Family hx of lung cancer Bro (lung, brain).. and 2nd bro (esoph) & recent Sis (esoph) Psoas muscle strain Possible, based on inner rt inguinal catch pain .. resolves .. could this be associated with RUQ pain?? 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 denies Diplopia Obstructive sleep apnea Diverticulosis Endometrial thickening on ultra sound 10/2016. ES 7mm. EMBx nl. Surgical History History of esophagogastroduodenoscopy (~2023) 12/2022, 08/2023 H/O eye surgery Trigger finger of all digits of right hand Ring finger S/P release: 11/30/2020 right hand surgery fistulotomy 2009 enterovaginal fistula repair 2007 at [facility] bladder sling Colonoscopy - IV Sedation (~12/2022) Extraction of cataract 08/13 Family History Mother , age 76 COPD (chronic obstructive pulmonary disease) Father , 70s Heart disease Sister Breast cancer Sister Esophageal cancer Brother Factor V deficiency Lung cancer Brother Depression Daughter Alcohol abuse Daughter No problems noted. Maternal Grandfather , age 46 COPD (chronic obstructive pulmonary disease) Paternal Grandfather No problems noted. Maternal Grandmother , age 92 No problems noted. Paternal Grandmother No problems noted. Social History Smoking/Tobacco Use Status: Former Tobacco Use Quit Date: 04/30/01 Tobacco: How many years used: 30 Second Hand Exposure: Yes Smoking risk assessment performed?: Yes Alcohol Intake: current Alcohol Intake frequency: a few times a week Alcohol type: wine Drug use: Never Substance use type: does not use Adopted: No Caregiver/Support person: No Foster care: No Household members: spouse and family Housing: house Number of Children: 2 number of grandchildren: 4 Communication Needs: Hard of Hearing Education Level: high school Do you need help understanding health information?: Rarely Pets and animals: No Sexually active: No Do you think of yourself as: straight/heterosexual Current gender identity: female What is your relationship status?: How often do you talk on the phone with friends or family?: three or more times per week How often do you get together with friends or relatives?: three or more times per week How often do you attend catholic or sabianism services?: 4 or more times per year Do you belong to any clubs or organized social groups?: no Panel score (0-1 are the most socially isolated patients): 3 What type of physical activity do you participate in: walking Duration: > 90 minutes/day Frequency: 3-4 times per week Loretta/Druze: Pentecostalism Special loretta needs: No Seatbelt use: always Helmet use: No Drive intox or ride w/intox otr company truck driver: No Do you feel safe at home: Yes Do you feel safe in your relationship?: Yes Meds Allergies and Home Medications Allergies Allergy/AdvReac Type Severity Reaction Status Date / Time amoxicillin trihydrate (From Allergy Severe Hives Verified 10/17/24 23:12 Augmentin) potassium clavulanate (From Allergy Severe Hives Verified 10/17/24 23:12 Augmentin) cat dander Allergy Unknown Wheezing Verified 10/17/24 23:12 atenolol AdvReac Severe bradycardia Verified 10/17/24 23:12 nitrofurantoin (From AdvReac Intermediate Skin Rash Verified 10/17/24 23:12 Macrobid) Sulfa (Sulfonamide AdvReac Intermediate shaking, Verified 10/17/24 23:12 Antibiotics) propranolol AdvReac Mild bradycardia Verified 10/17/24 23:12 Home Medications ?Medication ?Instructions ?Recorded ?Confirmed ?Type fish oil-dha-epa 1,200 mg-144 1 ea PO DAILY 03/24/13 10/17/24 History mg-216 mg capsule aspirin 81 mg tablet,delayed 81 mg PO DAILY 03/15/22 10/17/24 History release magnesium oxide 400 mg PO QHS #90 tab-caps 09/14/22 10/17/24 Rx albuterol sulfate 90 mcg/actuation 2 puff inhalation QID PRN 05/01/23 10/17/24 Rx aerosol inhaler shortness of breath or wheezing #18 grams cholecalciferol (vitamin D3) 50 50 mcg PO DAILY 09/05/23 10/17/24 History mcg (2,000 unit) capsule metronidazole 0.75 % topical cream 1 applic topical DAILY PRN rosacea 10/21/23 10/17/24 Rx flare #45 grams famotidine 40 mg tablet 40 mg PO DAILY #90 tabs 05/30/24 10/17/24 Rx nitroglycerin 0.6 mg sublingual 0.6 mg sublingual Q5M PRN chest 07/21/24 10/17/24 Rx tablet pain #20 tabs amlodipine 10 mg tablet See Rx Instructions .Route 07/28/24 10/17/24 Rx .COMPLEX #90 tabs losartan 100 mg tablet 100 mg PO HS #90 tabs 07/28/24 10/17/24 Rx sucralfate 1 gram tablet 1 g PO QACHS #120 tabs 09/23/24 10/17/24 Rx Exam Narrative Exam Narrative: HEENT-normocephalic atraumatic mucous membranes moist oropharynx is clear Neck-no lymphadenopathy no JVD no thyromegaly Cardiovascular-no murmur rubs or gallops regular rate and rhythm Pulmonary-clear to auscultation bilaterally no accessory muscle use Abdomen-mild tenderness to palpation bilateral lower quadrants. Negative psoas and obturator signs Extremities-no sinus clubbing or edema Neurologic-cranial nerves II through XII intact as tested no focal deficits noted Psych-alert and oriented x 3 no apparent distress Results Labs 10/17/24 23:23 10/17/24 23:23 Labs: Laboratory Results - last 24 hr 10/17/24 10/17/24 23:23 23:30 WBC 16.01 H RBC 5.25 H Hgb 15.5 Hct 46.8 H MCV 89 MCH 29.5 MCHC 33.1 RDW 12.9 Plt Count 313 MPV 9.9 Immature Gran % 0.4 Neutrophils % 86.2 Lymphocytes % 8.0 Monocytes % 5.1 Eosinophils % 0.1 Basophils % 0.2 Nucleated RBC % 0.0 Absolute Neutrophils 13.80 H Absolute Lymphocytes 1.28 Absolute Monocytes 0.82 H Absolute Eosinophils 0.02 Absolute Basophils 0.03 Sodium 137 Potassium 3.8 Chloride 100 Carbon Dioxide 29.7 Anion Gap 7.3 BUN 10 Creatinine 0.9 Est GFR (CKD-EPI 2020) 68.35 Glucose 117 H Calcium 8.9 Magnesium 1.9 Total Bilirubin 0.6 AST 15 ALT 26 Alkaline Phosphatase 122 H Total Protein 7.9 Albumin 3.7 Urine Color Yellow Urine Clarity Clear Urine pH 7.0 Ur Specific [place] 1.020 Urine Protein Trace Urine Ketones Trace H Urine Blood Trace-intact H Urine Nitrite Negative Urine Bilirubin Negative Urine Urobilinogen 0.2 Ur Leukocyte Esterase Trace H Urine RBC 0-2 Urine WBC 3-5 Ur Epithelial Cells Few Urine Crystals Negative Urine Bacteria Moderate Urine Casts Negative Urine Mucus Trace Ur Culture Indicated? No Urine Glucose Negative Last Vital Signs Pulse 73 10/17/24 23:09 Resp 16 10/17/24 23:09 BP 162/66 H 10/17/24 23:09 Pulse Ox 97 10/17/24 23:09 Time Spent Time spent with Patient: <40 minutes Time was spent: preparing to see the patient(eg.review tests), obtaining and/or reviewing separately otained hiistory, ordering medications,tests, procedures, referring, communicating with other health care attendant, indepentently interpreting results, counseling the patient and care coordination
[2024-10-18] MEDS: ERTAPENEM 1 GM in Normal Saline 50 ML IVPB (02:41)
--- NOTE | 2024-10-18 03:33 | W.PC.ACHO ---
Registration Status: REG ER Primary Language: Preferred Language: Italian ED Information & Data Chief Complaint Abd Prob 10/17/24 23:39 Chief Complaint Abd Prob 10/17/24 23:23 Triage Note lower left abdominal pain 10/17/24 23:09 all day today. no trouble moving bowels. vomiting x 1 no relief with OTC meds Medical / Surgical History (Last Reviewed 08/19/24 @ 13:32 by Romeo Ac MD) Urinary tract infection Diverticulosis (~12/2022) Lipoma of anterior chest wall Fecal incontinence Frequent loose stools Urge incontinence Anal fistula Family hx-breast malignancy Family history of asthma Family hx of lung cancer Psoas muscle strain Neck muscle strain Asymmetrical sensorineural hearing loss COVID-19 Foreign body in right ear, initial encounter Chronic swimmer's ear of left side Irregular heart beat Carpal tunnel syndrome of left wrist Factor V Leiden (02/22/17) Breast lump Tinnitus GERD (gastroesophageal reflux disease) Obesity (BMI 30.0-34.9) Hyperlipidemia Webb's cyst of knee COPD (chronic obstructive pulmonary disease) Diplopia Obstructive sleep apnea Diverticulosis Endometrial thickening on ultra sound (Last Reviewed 08/19/24 @ 13:32 by Romeo Ac MD) History of esophagogastroduodenoscopy (~2023) H/O eye surgery Trigger finger of all digits of right hand right hand surgery fistulotomy enterovaginal fistula repair bladder sling Colonoscopy - IV Sedation (~12/2022) Extraction of cataract Most Recent Vital Signs Pulse 73 10/17/24 23:09 Respiratory Rate 16 10/17/24 23:09 Blood Pressure 162/66 H 10/17/24 23:09 Pulse Oximetry 97 10/17/24 23:09 Oxygen Delivery Method Room Air 10/17/24 23:09 Oxygen Flow Rate 0 10/17/24 23:09 Pain Level 6 10/17/24 23:09 Allergies amoxicillin trihydrate (From Augmentin) Allergy (Severe, Verified 10/17/24 23:12) Hives potassium clavulanate (From Augmentin) Allergy (Severe, Verified 10/17/24 23:12) Hives cat dander Allergy (Unknown, Verified 10/17/24 23:12) Wheezing cngestion/sneezing atenolol Adverse Reaction (Severe, Verified 10/17/24 23:12) bradycardia nitrofurantoin (From Macrobid) Adverse Reaction (Intermediate, Verified 10/17/24 23:12) Skin Rash Sulfa (Sulfonamide Antibiotics) Adverse Reaction (Intermediate, Verified 10/17/24 23:12) shaking, propranolol Adverse Reaction (Mild, Verified 10/17/24 23:12) bradycardia Precautions Isolation Standard precaution 10/17/24 23:39 Active Medications Generic Name Dose Route Start Last Admin Trade Name Freq PRN Reason Stop Dose Admin Ertapenem/Sodium Chloride 1 gm 50 mls @ 100 mls/hr 10/18/24 02:45 10/18/24 03:11 / Sodium Chloride IVPB Not Given Q24H JORDI Iohexol 50 ml 10/17/24 23:45 10/17/24 23:41 Omnipaque 350 Mg/Ml 50 Ml Btl PO 11/16/24 23:59 50 ml DIRECTED JORDI Administration Iohexol 75 ml 10/18/24 01:30 10/18/24 01:21 Omnipaque 350 Mg/Ml 100 Ml Btl IJ 11/17/24 23:59 75 ml DIRECTED JORDI Administration Miscellaneous Medication 473 ml 10/17/24 23:45 10/17/24 23:43 Breeza Beverage 473 Ml Btl PO 11/16/24 23:59 473 ml DIRECTED JORDI Administration Sodium Chloride 50 ml 10/18/24 01:30 10/18/24 01:22 Normal Saline - Diluent 50 Ml Vial IJ 50 ml .FOR DI USE JORDI Administration IV IV Catheter Type [Right Peripheral IV Antecubital] IV Catheter Gauge [Right 18 Antecubital] Diet Orders Category Date Time Status Nothing Per Oral [DIET] Nutrition 10/18/24 02:34 Active Diagnostics 10/17/24 10/17/24 Range/Units 23:30 23:23 WBC 16.01 H (4.4-10.8) 10^3/uL RBC 5.25 H (3.93-5.22) 10^6/uL Hgb 15.5 (11.2-15.7) g/dL Hct 46.8 H (36.0-46.0) % MCV 89 (80-95) fL MCH 29.5 (27.0-33.0) pg MCHC 33.1 (32.0-36.0) % RDW 12.9 (11.7-14.6) % Plt Count 313 (130-400) 10^3/uL MPV 9.9 (8.0-11.0) fL Immature Gran % 0.4 % Neutrophils % 86.2 % Lymphocytes % 8.0 % Monocytes % 5.1 % Eosinophils % 0.1 % Basophils % 0.2 % Nucleated RBC % 0.0 (0.0-0.3) % Absolute Neutrophils 13.80 H (1.2-6.7) 10^3/uL Absolute Lymphocytes 1.28 (1.2-3.4) 10^3/uL Absolute Monocytes 0.82 H (0.1-0.8) 10^3/uL Absolute Eosinophils 0.02 (0.0-0.7) 10^3/uL Absolute Basophils 0.03 (0.0-0.2) 10^3/uL Sodium 137 (136-145) mmol/L Potassium 3.8 (3.5-5.1) mmol/L Chloride 100 (98-107) mmol/L Carbon Dioxide 29.7 (21.0-32.0) mmol/L Anion Gap 7.3 (3-11) mmol/L BUN 10 (7-18) mg/dL Creatinine 0.9 (0.55-1.02) mg/dL Est GFR (CKD-EPI 2020) 68.35 (mL/min/1.73m2) Glucose 117 H (74-106) mg/dL Calcium 8.9 (8.5-10.1) mg/dL Magnesium 1.9 (1.8-2.4) mg/dL Total Bilirubin 0.6 (0.2-1.0) mg/dL AST 15 (15-37) U/L ALT 26 (14-59) U/L Alkaline Phosphatase 122 H (46-116) U/L Total Protein 7.9 (6.4-8.2) g/dL Albumin 3.7 (3.4-5.0) g/dL Urine Color Yellow (Yellow) Urine Clarity Clear (Clear) Urine pH 7.0 (5-8) Ur Specific [place] 1.020 (1.005-1.025) Urine Protein Trace (Neg-Trace) mg/dL Urine Ketones Trace H (Negative) mg/dL Urine Blood Trace-intact H (Negative) Urine Nitrite Negative (Negative) Urine Bilirubin Negative (Negative) Urine Urobilinogen 0.2 (Up to 0.2) mg/dL Ur Leukocyte Esterase Trace H (Negative) Urine RBC 0-2 (0-2) HPF Urine WBC 3-5 (0-5) HPF Ur Epithelial Cells Few (Negative) HPF Urine Crystals Negative (Negative) HPF Urine Bacteria Moderate (Negative) HPF Urine Casts Negative (Negative) LPF Urine Mucus Trace (Negative) Ur Culture Indicated? No Urine Glucose Negative (Negative) mg/dL Intake and Output - 24 Hour Total 10/17/24 23:06 thru 10/18/24 01:38 Intake Total 100 Balance 100 Weight 78.925 kg Intake: IV 100 Falls Risk Assessment History of Falls No History 10/17/24 23:39 Contributing Factors Impairments,Incontinence 10/17/24 23:39 Ambulatory Aids Independent 10/17/24 23:39 Tubes/Lines None 10/17/24 23:39 Gait Evaluation No gait disturbance 10/17/24 23:39 Cognition No cognitive impairment 10/17/24 23:39 Fall Total Score 6 10/17/24 23:39 Level of Risk Standard/Low Risk 10/17/24 23:39 Problems (Last Reviewed 08/19/24 @ 13:32 by Romeo Ac MD) Acute appendicitis (Acute) v v v v v v v v v Sending and/or Receiving Nurses: Please use comment section below to note any information pertinent to the patient hand-off not included above. Information / Comments:A x O4, independent. LLQ abdominal pain imaging showed appendicitis Report received from: @[address] [place] [address]
--- NOTE | 2024-10-18 08:14 | W.ANESPRE ---
General Info Date of Service Date Performed: 10/18/24 Height: 5 ft 1 in Weight: 81.4 kg Body Mass Index (BMI): 33.9 Meds Allergies and Home Medications Allergies Allergy/AdvReac Type Severity Reaction Status Date / Time amoxicillin trihydrate (From Allergy Severe Hives Verified 10/17/24 23:12 Augmentin) potassium clavulanate (From Allergy Severe Hives Verified 10/17/24 23:12 Augmentin) cat dander Allergy Unknown Wheezing Verified 10/17/24 23:12 atenolol AdvReac Severe bradycardia Verified 10/17/24 23:12 nitrofurantoin (From AdvReac Intermediate Skin Rash Verified 10/17/24 23:12 Macrobid) Sulfa (Sulfonamide AdvReac Intermediate shaking, Verified 10/17/24 23:12 Antibiotics) propranolol AdvReac Mild bradycardia Verified 10/17/24 23:12 Home Medication ?Medication ?Instructions ?Recorded fish oil-dha-epa 1,200 mg-144 1 ea PO DAILY 03/24/13 mg-216 mg capsule aspirin 81 mg tablet,delayed 81 mg PO DAILY 03/15/22 release magnesium oxide 400 mg PO QHS #90 tab-caps 09/14/22 albuterol sulfate 90 mcg/actuation 2 puff inhalation QID PRN 05/01/23 aerosol inhaler shortness of breath or wheezing #18 grams cholecalciferol (vitamin D3) 50 50 mcg PO DAILY 09/05/23 mcg (2,000 unit) capsule metronidazole 0.75 % topical cream 1 applic topical DAILY PRN rosacea 10/21/23 flare #45 grams famotidine 40 mg tablet 40 mg PO DAILY #90 tabs 05/30/24 nitroglycerin 0.6 mg sublingual 0.6 mg sublingual Q5M PRN chest 07/21/24 tablet pain #20 tabs amlodipine 10 mg tablet See Rx Instructions .Route 07/28/24 .COMPLEX #90 tabs losartan 100 mg tablet 100 mg PO HS #90 tabs 07/28/24 sucralfate 1 gram tablet 1 g PO QACHS #120 tabs 09/23/24 Current Visit Medications: Current Medications Generic Name Dose Route Start Last Admin Trade Name Freq PRN Reason Stop Dose Admin Acetaminophen 325 - 650 mg 10/18/24 04:49 Acetaminophen 325 Mg Tab PO Q4H PRN PRN Al Hydrox/Mg Hydrox/Simethicone 30 ml 10/18/24 02:33 Mylanta Suspension 30 Ml Cup PO Q2H PRN PRN Albuterol Sulfate 2 puff 10/18/24 04:50 Albuterol Hfa 8 Gm 60 Puff Inh IH QID PRN PRN shortness of breath or wheezing Amlodipine Besylate 10 mg 10/18/24 08:30 Amlodipine 10 Mg Tab PO DAILY [facility] Aspirin 81 mg 10/18/24 08:30 Aspirin E.C. 81 Mg Tabec PO DAILY [facility] Cholecalciferol 2,000 units 10/18/24 08:30 Cholecalciferol (Vitamin D3) 1,000 Unit Tab PO DAILY [facility] Docusate Sodium 100 mg 10/18/24 02:33 Docusate Sodium 100 Mg Cap PO TID PRN PRN Fish Oil 1,000 mg 10/18/24 08:30 [place]-3 Fatty Acids 1000 Mg Cap PO DAILY [facility] Ringer's Solution 1,000 mls @ 100 mls/hr 10/18/24 02:45 IV INFUSION [facility] Ertapenem/Sodium Chloride 1 gm 50 mls @ 100 mls/hr 10/19/24 02:00 / Sodium Chloride IVPB Q24H [facility] Losartan Potassium 100 mg 10/18/24 20:00 Losartan 50 Mg Tab PO HS [facility] Magnesium Hydroxide 30 ml 10/18/24 02:33 Milk Of Magnesia 30 Ml Cup PO DAILY PRN PRN Magnesium Oxide 400 mg 10/18/24 20:00 Magnesium Oxide 400 Mg Tab PO HS [facility] Metronidazole 0 gm 10/18/24 03:48 Metronidazole 0.75% Cr. 45 Gm Tube TP DAILY PRN PRN rosacea flare Morphine Sulfate 2 mg 10/18/24 02:36 Morphine 10 Mg/Ml Vial IVP Q6H PRN PRN Nitroglycerin 0.6 mg 10/18/24 04:56 Nitroglycerin 0.3 Mg Tab SL Q5 MIN PRN X3 PRN chest pain Non-Formulary Medication 40 mg 10/18/24 08:30 Famotidine PO DAILY [facility] Polyethylene Glycol 17 gm 10/18/24 02:33 Polyethylene Glycol 3350 17 Gm Packet PO DAILY PRN PRN Constipation Sodium Chloride 0 ml 10/18/24 04:37 Normal Saline Flush 10 Ml Syr IVP PRN PRN Sodium Chloride 0 ml 10/18/24 08:30 Normal Saline Flush 10 Ml Syr IVP BID JORDI PFSH Active Problems Active Problems: Problem Status Onset Code Acute appendicitis Acute K35.80 Conductive hearing loss in left ear Acute H90.12 Perforation of tympanic membrane of left ear due to otitis media Acute H67.2, H72.92 Chronic otitis externa of left ear Acute H60.62 Fundic gland polyps of stomach, benign Acute ~12/29/22 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/22 K22.70 Arthritis of right sacroiliac joint Acute M47.818 Lichen simplex chronicus Acute L28.0 FHx: esophageal cancer Acute Z80.0 Right thigh pain Acute M79.651 At high risk for osteoporosis Acute Z91.89 Osteopenia Acute M85.80 Chronic myringitis, left ear Acute H73.12 Allergic rhinitis due to pollen Acute 04/19/15 J30.1 Asthma Acute 11/16/14 J45.909 Esophageal reflux Acute K21.9 Hypertension Acute 02/22/17 I10 Sensorineural hearing loss, bilateral Acute 03/29/15 H90.3 Medical History Medical History Diverticulosis (~12/2022) Lipoma of anterior chest wall Seen by surg Fecal incontinence post 3 surgeries with video production specialist .. (Lamotil used qHS, ik, 09/2022) Frequent loose stools 12/2019-since fistulectomy in [place] Had previously been seen in urogyn [facility] Urge incontinence Anal fistula Family hx-breast malignancy Sister Family history of asthma Family hx of lung cancer Bro (lung, brain).. and 2nd bro (esoph) & recent Sis (esoph) Psoas muscle strain Possible, based on inner rt inguinal catch pain .. resolves .. could this be associated with RUQ pain?? 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 denies Diplopia Obstructive sleep apnea Diverticulosis Endometrial thickening on ultra sound 10/2016. ES 7mm. EMBx nl. Medical History Comments:: Pt states her HR was low after anesthesia. Surgical History Surgical History History of esophagogastroduodenoscopy (~2023) 12/2022, 08/2023 H/O eye surgery Trigger finger of all digits of right hand Ring finger S/P release: 11/30/2020 right hand surgery fistulotomy 2008 enterovaginal fistula repair 2007 at [facility] bladder sling Colonoscopy - IV Sedation (~12/2022) Extraction of cataract 08/13 Tobacco Smoking/Tobacco Use Status: Former Tobacco Use Passive smoking exposure: Yes Second hand exposure: Yes Alcohol Alcohol Intake: current Alcohol intake frequency: a few times a week Alcohol type: wine Substance Use Substance use: Never Substance use type: does not use Vital Signs and Lab Results Vital Signs Most Recent Vital Signs in EMR: Most Recent Vital Signs Temp Pulse Resp BP Pulse Ox 36.3 C L 56 L 18 116/84 96 10/18/24 03:56 10/18/24 03:56 10/18/24 03:56 10/18/24 03:56 10/18/24 03:56 Lab Results 10/17/24 23:23 10/17/24 23:23 Complete Blood Count: WBC, (4.4-10.8) 16.01 10^3/uL H 10/17/24, 23:23 RBC, (3.93-5.22) 5.25 10^6/uL H 10/17/24, 23:23 Hgb, (11.2-15.7) 15.5 g/dL 10/17/24, 23:23 Hct, (36.0-46.0) 46.8 % H 10/17/24, 23:23 Plt Count, (130-400) 313 10^3/uL 10/17/24, 23:23 Complete Metabolic Panel: Sodium, (136-145) 137 mmol/L 10/17/24, 23:23 Potassium, (3.5-5.1) 3.8 mmol/L 10/17/24, 23:23 Chloride, (98-107) 100 mmol/L 10/17/24, 23:23 Carbon Dioxide, (21.0-32.0) 29.7 mmol/L 10/17/24, 23:23 BUN, (7-18) 10 mg/dL 10/17/24, 23:23 Creatinine, (0.55-1.02) 0.9 mg/dL 10/17/24, 23:23 Est GFR (CKD-EPI 2020), (mL/min/1.73m2) 68.35 10/17/24, 23:23 Magnesium, (1.8-2.4) 1.9 mg/dL 10/17/24, : Calcium, (8.5-10.1) 8.9 mg/dL 10/17/24, :23 Albumin, (3.4-5.0) 3.7 g/dL 10/17/24, 23:23 Glucose, (74-106) 117 mg/dL H 10/17/24, 23:23 Liver Function Panel: ALT, (14-59) 26 U/L 10/17/24, 23:23 AST, (15-37) 15 U/L 10/17/24, 23:23 Imaging and Studies Imaging and Studies Study information below may be from another EMR and interpreted by another provider. Please see original notes in EMR for more complete details. EKG Summary: 10/18: Conclusion Sinus bradycardia...rate< 60 Left axis deviation...QRS axis (-30,-90) Echocardiogram Summary: 06/20: Normal left ventricular wall thickness and chamber size. Estimated ejection fraction is 60%. There are no segmental wall motion abnormalities Normal right ventricular size and systolic function Both atria are normal in size There are no structural or hemodynamically significant valvular abnormalities Other Study Summary:: Holter, 2020: Sinus mostly, occ PVC. Anesthesia Assessment and Plan Anesthesia History Personal History: No History of Anesthesia Complications Family History: No Family History of Anesthesia Complications Exercise Tolerance Exercise Tolerance: Metabolic Equivalents>4 Cardiac & Pulmonary Exam Cardiac Exam: Normal S1/S2 Heart Sounds Pulmonary Exam: Clear Bilateral Breath Sounds Implantable Cardiac Device Does patient have a Pacemaker or an ICD?: No Airway Exam Known Difficult Airway: No Mallampati Class: 2 Mouth Opening: Normal (> 3cm) Thyromental Distance: Greater than 3 cm Neck Range of Motion: Full ROM Neck Circumference: Normal Teeth Condition: Normal Dentition ASA Classification ASA Score: ASA 2 Emergency Case?: No NPO Status NPO Status: Unable to Assess (approp NPO, but lots of contents in stomach on CT. ) Anesthesia Plan Resuscitation Status: Full Code Anesthesia Technique: General Anesthesia Airway Planned: Endotracheal Tube Monitors Used: Standard Monitors Preoperative Comments:: 73 yo female with acute appendicitis for lap appy. Admitted last night through the ED with abdominal pain and found to have appendicitis. Started on ertapenem, to the OR today for removal. Sig PMHx: HTN (amlodipine, losartan), RAJENDRA, GERD/dysphagia/barretts (famotidine), asthma (allergy related, albuterol), factor V leiden, former smoker, occ EtOH. ECG: junctional. ECHO: LVEF 60%, no sig valve issues. stress: 4.7 METS, no evidence of ischemia. Previous Anes: - EGD, prop, natural airway, no issues. - EGD/colo, prop, natural airway, no issues. - lipoma, prop, natural airway, no issues.
--- NOTE | 2024-10-18 09:25 | SCONE_ITS ---
Date of service: 10/18/24 Time of Service: 09:25 Assessment and Plan Assessment and plan (1) Acute appendicitis: Status: Acute Assessment and plan: Patient with acute appendicitis. Was able to review her CT scan. The appendiceal base appears in the normal anatomic position. It does feel with a small amount of contrast. The distal appendix and body of the appendix are dilated with surrounding fat stranding. The appendix does reach toward the pelvis. The appendix does not appear perforated there is a appendicolith present within the body/tip of the appendix. Plan for procedure, laparoscopic appendectomy, discussed with patient the risk and expected outcomes of the procedure. (2) Hypertension: Status: Acute Assessment and plan: She does have hypertension, this appears appropriately controlled. An EKG was performed 3 months ago, this showed an occasional junctional rhythm. Patient with excellent functional capacity. We will repeat EKG preoperatively. History of Present Illness History of Present Illness Chief Complaint: Abdominal pain Narrative: Patient is a 79-year-old female, she has a history of rectovaginal fistula that was treated at [facility], she presents to the hospital having about 2 days of right lower quadrant abdominal pain associated with nausea and some retching. Has not experienced this in the past. Reports prior colonoscopy this was about 2 years ago, performed by surgical colleague Dr. Clemente Menard. Patient was given antibiotics in the ER, reports that her pain has improved. Review of Systems Narrative: General, negative. CV, history of hypertension, otherwise negative. Respiratory, patient is former smoker from 20 years ago. Negative otherwise. GI, as per HPI, patient also having some mild fecal incontinence following rectovaginal fistula repair. Causes sensation of urge, has not been disabling to the patient. , patient with recent urinary tract infection, she was treated with antibiotics, reports resolution of symptoms. Musculoskeletal, negative. Neuro, patient with left sided hearing loss. Psych, negative. Endocrine, negative. Skin, negative. PFSH All Active Problems (Updated 10/18/24 @ 09:52 by Erasmo Coburn MD) Acute appendicitis (Acute) Conductive hearing loss in left ear (Acute) Perforation of tympanic membrane of left ear due to otitis media (Acute) Chronic otitis externa of left ear (Acute) Fundic gland polyps of stomach, benign (Acute ~12/29/22) Kiran esophagus (Acute ~12/29/22) Arthritis of right sacroiliac joint (Acute) Lichen simplex chronicus (Acute) [facility] D[facility]M note 09/22/22.HE ((Lichen planus/lacy leg scaling)) Betamethasone FHx: esophageal cancer (Acute) Brother and sister with mild to moderate dysphagia and patient with history of esophageal reflux Right thigh pain (Acute) At high risk for osteoporosis (Acute) DEXA 2020 mentions osteopenia, but osteoporosis of forearm.. Osteopenia (Acute) Chronic myringitis, left ear (Acute) Allergic rhinitis due to pollen (Acute 04/19/15) Asthma (Acute 11/16/14) exacerbated by allergies Esophageal reflux (Acute) Hypertension (Acute 02/22/17) Sensorineural hearing loss, bilateral (Acute 03/29/15) Medical History Diverticulosis (~12/2022) Lipoma of anterior chest wall Seen by surg Fecal incontinence post 3 surgeries with psychiatric rn .. (Lamotil used qHS, ik, 09/2022) Frequent loose stools 12/2019-since fistulectomy in [place] Had previously been seen in urogyn [facility] Urge incontinence Anal fistula Family hx-breast malignancy Sister Family history of asthma Family hx of lung cancer Bro (lung, brain).. and 2nd bro (esoph) & recent Sis (esoph) Psoas muscle strain Possible, based on inner rt inguinal catch pain .. resolves .. could this be associated with RUQ pain?? 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 denies Diplopia Obstructive sleep apnea Diverticulosis Endometrial thickening on ultra sound 10/2016. ES 7mm. EMBx nl. Surgical History History of esophagogastroduodenoscopy (~2023) 12/2022, 08/2023 H/O eye surgery Trigger finger of all digits of right hand Ring finger S/P release: 11/30/2020 right hand surgery fistulotomy 2009 enterovaginal fistula repair 2007 at [facility] bladder sling Colonoscopy - IV Sedation (~12/2022) Extraction of cataract 08/13 Family History Mother , age 76 COPD (chronic obstructive pulmonary disease) Father , 70s Heart disease Sister Breast cancer Sister Esophageal cancer Brother Factor V deficiency Lung cancer Brother Depression Daughter Alcohol abuse Daughter No problems noted. Maternal Grandfather , age 46 COPD (chronic obstructive pulmonary disease) Paternal Grandfather No problems noted. Maternal Grandmother , age 92 No problems noted. Paternal Grandmother No problems noted. Social History Smoking/Tobacco Use Status: Former Tobacco Use Quit Date: 04/30/01 Tobacco: How many years used: 30 Second Hand Exposure: Yes Smoking risk assessment performed?: Yes Alcohol Intake: current Alcohol Intake frequency: a few times a week Alcohol type: wine Drug use: Never Substance use type: does not use Adopted: No Caregiver/Support person: No Foster care: No Household members: spouse and family Housing: house Number of Children: 2 number of grandchildren: 4 Communication Needs: Hard of Hearing Education Level: high school Do you need help understanding health information?: Rarely Pets and animals: No Sexually active: No Do you think of yourself as: straight/heterosexual Current gender identity: female What is your relationship status?: How often do you talk on the phone with friends or family?: three or more times per week How often do you get together with friends or relatives?: three or more times per week How often do you attend mosque or temple services?: 4 or more times per year Do you belong to any clubs or organized social groups?: no Panel score (0-1 are the most socially isolated patients): 3 What type of physical activity do you participate in: walking Duration: > 90 minutes/day Frequency: 3-4 times per week Loretta/Druze: Hinduism Special loretta needs: No Seatbelt use: always Helmet use: No Drive intox or ride w/intox tanker driver: No Do you feel safe at home: Yes Do you feel safe in your relationship?: Yes Exam Narrative Exam Narrative: Patient is a pleasant adult female, she is awake and alert, in minimal discomfort today. She was examined with her present in the room. Her vital signs are unremarkable. Her cardiac exam is regular rate and rhythm without murmur. Her pulmonary exam is clear to auscultation bilaterally. Her abdomen is without prior surgical scar, she does have some mild abdominal obesity. Her abdomen is soft, and is nondistended, it is tender in the right lower quadrant at a point slightly inferior to McBurney's point. She has normal mood and affect. Results Last Vital Signs Temp 36 C L 10/18/24 08:14 Pulse 55 L 10/18/24 08:14 Resp 14 10/18/24 08:14 BP 128/64 10/18/24 08:14 Pulse Ox 93 10/18/24 08:14 Labs 10/17/24 23:23 10/17/24 23:23 Labs: Laboratory Results - last 24 hr 10/17/24 10/17/24 23:23 23:30 WBC 16.01 H RBC 5.25 H Hgb 15.5 Hct 46.8 H MCV 89 MCH 29.5 MCHC 33.1 RDW 12.9 Plt Count 313 MPV 9.9 Immature Gran % 0.4 Neutrophils % 86.2 Lymphocytes % 8.0 Monocytes % 5.1 Eosinophils % 0.1 Basophils % 0.2 Nucleated RBC % 0.0 Absolute Neutrophils 13.80 H Absolute Lymphocytes 1.28 Absolute Monocytes 0.82 H Absolute Eosinophils 0.02 Absolute Basophils 0.03 Sodium 137 Potassium 3.8 Chloride 100 Carbon Dioxide 29.7 Anion Gap 7.3 BUN 10 Creatinine 0.9 Est GFR (CKD-EPI 2020) 68.35 Glucose 117 H Calcium 8.9 Magnesium 1.9 Total Bilirubin 0.6 AST 15 ALT 26 Alkaline Phosphatase 122 H Total Protein 7.9 Albumin 3.7 Urine Color Yellow Urine Clarity Clear Urine pH 7.0 Ur Specific Mchenry 1.020 Urine Protein Trace Urine Ketones Trace H Urine Blood Trace-intact H Urine Nitrite Negative Urine Bilirubin Negative Urine Urobilinogen 0.2 Ur Leukocyte Esterase Trace H Urine RBC 0-2 Urine WBC 3-5 Ur Epithelial Cells Few Urine Crystals Negative Urine Bacteria Moderate Urine Casts Negative Urine Mucus Trace Ur Culture Indicated? No Urine Glucose Negative Imaging Abdomen CT scan report/results: report reviewed and image reviewed
--- NOTE | 2024-10-18 09:29 | W.SURGCON ---
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 Osteopenia (Acute) Chronic myringitis, left ear (Acute) Allergic rhinitis due to pollen (Acute 04/19/15) Asthma (Acute 11/16/14) exacerbated by allergies Esophageal reflux (Acute) Hypertension (Acute 02/22/17) Sensorineural hearing loss, bilateral (Acute 03/29/15) Medical History Diverticulosis (~12/2022) Lipoma of anterior chest wall Seen by surg Fecal incontinence post 3 surgeries with peanut picker .. (Lamotil used qHS, ik, 09/2022) Frequent loose stools 12/2019-since fistulectomy in [place] Had previously been seen in urogyn [facility] Urge incontinence Anal fistula Family hx-breast malignancy Sister Family history of asthma Family hx of lung cancer Bro (lung, brain).. and 2nd bro (esoph) & recent Sis (esoph) Psoas muscle strain Possible, based on inner rt inguinal catch pain .. resolves .. could this be associated with RUQ pain?? 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 denies Diplopia Obstructive sleep apnea Diverticulosis Endometrial thickening on ultra sound 10/2016. ES 7mm. EMBx nl. Surgical History History of esophagogastroduodenoscopy (~2023) 12/2022, 08/2023 H/O eye surgery Trigger finger of all digits of right hand Ring finger S/P release: 11/30/2020 right hand surgery fistulotomy 2008 enterovaginal fistula repair [address] [facility] bladder sling Colonoscopy - IV Sedation (~12/2022) Extraction of cataract 08/13 Family History Mother , age 76 COPD (chronic obstructive pulmonary disease) Father , 70s Heart disease Sister Breast cancer Sister Esophageal cancer Brother Factor V deficiency Lung cancer Brother Depression Daughter Alcohol abuse Daughter No problems noted. Maternal Grandfather , age 46 COPD (chronic obstructive pulmonary disease) Paternal Grandfather No problems noted. Maternal Grandmother , age 92 No problems noted. Paternal Grandmother No problems noted. Social History Smoking/Tobacco Use Status: Former Tobacco Use Quit Date: 04/30/01 Tobacco: How many years used: 30 Second Hand Exposure: Yes Smoking risk assessment performed?: Yes Alcohol Intake: current Alcohol Intake frequency: a few times a week Alcohol type: wine Drug use: Never Substance use type: does not use Adopted: No Caregiver/Support person: No Foster care: No Household members: spouse and family Housing: house Number of Children: 2 number of grandchildren: 4 Communication Needs: Hard of Hearing Education Level: high school Do you need help understanding health information?: Rarely Pets and animals: No Sexually active: No Do you think of yourself as: straight/heterosexual Current gender identity: female What is your relationship status?: How often do you talk on the phone with friends or family?: three or more times per week How often do you get together with friends or relatives?: three or more times per week How often do you attend sikhism or episcopalian services?: 4 or more times per year Do you belong to any clubs or organized social groups?: no Panel score (0-1 are the most socially isolated patients): 3 What type of physical activity do you participate in: walking Duration: > 90 minutes/day Frequency: 3-4 times per week Loretta/Protestant: Congregational Special loretta needs: No Seatbelt use: always Helmet use: No Drive intox or ride w/intox fork truck driver: No Do you feel safe at home: Yes Do you feel safe in your relationship?: Yes Results Last Vital Signs Temp 36 C L 10/18/24 08:14 Pulse 55 L 10/18/24 08:14 Resp 14 10/18/24 08:14 BP 128/64 10/18/24 08:14 Pulse Ox 93 10/18/24 08:14 Labs 10/17/24 23:23 10/17/24 23:23 Labs: Laboratory Results - last 24 hr 10/17/24 10/17/24 23:23 23:30 WBC 16.01 H RBC 5.25 H Hgb 15.5 Hct 46.8 H MCV 89 MCH 29.5 MCHC 33.1 RDW 12.9 Plt Count 313 MPV 9.9 Immature Gran % 0.4 Neutrophils % 86.2 Lymphocytes % 8.0 Monocytes % 5.1 Eosinophils % 0.1 Basophils % 0.2 Nucleated RBC % 0.0 Absolute Neutrophils 13.80 H Absolute Lymphocytes 1.28 Absolute Monocytes 0.82 H Absolute Eosinophils 0.02 Absolute Basophils 0.03 Sodium 137 Potassium 3.8 Chloride 100 Carbon Dioxide 29.7 Anion Gap 7.3 BUN 10 Creatinine 0.9 Est GFR (CKD-EPI 2020) 68.35 Glucose 117 H Calcium 8.9 Magnesium 1.9 Total Bilirubin 0.6 AST 15 ALT 26 Alkaline Phosphatase 122 H Total Protein 7.9 Albumin 3.7 Urine Color Yellow Urine Clarity Clear Urine pH 7.0 Ur Specific [place] 1.020 Urine Protein Trace Urine Ketones Trace H Urine Blood Trace-intact H Urine Nitrite Negative Urine Bilirubin Negative Urine Urobilinogen 0.2 Ur Leukocyte Esterase Trace H Urine RBC 0-2 Urine WBC 3-5 Ur Epithelial Cells Few Urine Crystals Negative Urine Bacteria Moderate Urine Casts Negative Urine Mucus Trace Ur Culture Indicated? No Urine Glucose Negative
--- NOTE | 2024-10-18 09:44 | PDOC.CMIN ---
Care Management Initial Assmt Initial Assessment Reason for Hospitalization: appendicitis Functional Status/Living Situation Town of Residence: [place] Resides with: Spouse ( Osbaldo) Medications Medication Management: No Issues/Barriers identified Advance Directives Advance Directives: Do you have an Advance Directive: Y 18, 13:30 AD On File at [facility]: Y 06/22/20, 06:45 Date Asked 10/15/23 10/15/23, 16:06 AD Date Reviewed 07/21/24 07/21/24, 16:02 COLST On File at [facility] COLST Date Scanned Code Status Resuscitation Status Full Code Insurance Coverage/Financial Issues Insurance: BC/BS Medicare Advantage plan Care Team Visit Care Team Role Provider Type Ander Medina, Primary Care Provider OSTEOPATHIC DOCTOR Chasity Strong Other Providers MINIATURE SET DESIGNER Sara Madrigal Other Providers MINIATURE SET DESIGNER Kathy Coffey Other Providers MINIATURE SET DESIGNER Nirali Donnelly RN Other Providers MINIATURE SET DESIGNER Ccey Muhammad Other Providers MINIATURE SET DESIGNER Aria Dunne MD Emergency Provider [facility] STAFF PHYSICIAN Tino Muhammad MD Admit Provider [facility] STAFF PHYSICIAN Attending Provider Discharge Potential Discharge Needs: PCP F/U Appt and Surgical F/U Appt Anticipated Barriers to Discharge: None Identified Patient/Family Education Needs: Review discharge instructions, discuss Ask Me Three Transportation: Private vehicle Plan: Anticipate Poppy will be discharged home, possibly with new home health services, when medically cleared. She will follow up with her surgeon , PCP and plan of care and transport with family. CM will follow and assess for discharge needs. Social Determinants of Health Screening Social Determinants of health last assessed in clinic: 10/18/24 Will the Patient Participate in the Screening?: Yes Do you worry about having a steady place to live?: no Problems where you live: no known problems In the past 12 months, have you had to go without electric, gas, oil or water in your home?: no Has lack of transportation kept you from medical appointments or from doing things needed for daily living?: no Has anyone in your life made you feel unsafe or unsupported?: no How hard is it for you to pay for the very basics like food, housing, medical care, and heating? Would you say it is:: Not hard at all Do you want help finding or keeping work or a job?: I do not need or want help If for any reason you need help with day-to-day activities such as bathing, preparing meals, shopping, managing finances, etc., do you get the help you need?: I don?t need any help How often do you feel lonely or isolated from those around you?: Never Do you speak a language other than Colombian at home?: No Does the patient want assistance with any of the above?: No PFSH All Active Problems (Updated 10/18/24 @ 02:17 by Aria Dunne MD) Acute appendicitis (Acute) Conductive hearing loss in left ear (Acute) Perforation of tympanic membrane of left ear due to otitis media (Acute) Chronic otitis externa of left ear (Acute) Fundic gland polyps of stomach, benign (Acute ~12/29/22) 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 Osteopenia (Acute) Chronic myringitis, left ear (Acute) Allergic rhinitis due to pollen (Acute 04/19/15) Asthma (Acute 11/16/14) exacerbated by allergies Esophageal reflux (Acute) Hypertension (Acute 02/22/17) Sensorineural hearing loss, bilateral (Acute 03/29/15) Medical History Diverticulosis (~12/2022) Lipoma of anterior chest wall Seen by surg Fecal incontinence post 3 surgeries with electrical technician .. (Lamotil used qHS, ik, 09/2022) Frequent loose stools 12/2019-since fistulectomy in [place] Had previously been seen in urogyn [facility] Urge incontinence Anal fistula Family hx-breast malignancy Sister Family history of asthma Family hx of lung cancer Bro (lung, brain).. and 2nd bro (esoph) & recent Sis (esoph) Psoas muscle strain Possible, based on inner rt inguinal catch pain .. resolves .. could this be associated with RUQ pain?? 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 denies Diplopia Obstructive sleep apnea Diverticulosis Endometrial thickening on ultra sound 10/2016. ES 7mm. EMBx nl. Surgical History History of esophagogastroduodenoscopy (~2023) 12/2022, 08/2023 H/O eye surgery Trigger finger of all digits of right hand Ring finger S/P release: 11/30/2020 right hand surgery fistulotomy 2009 enterovaginal fistula repair 2007 at [facility] bladder sling Colonoscopy - IV Sedation (~12/2022) Extraction of cataract 08/13 Family History Mother , age 76 COPD (chronic obstructive pulmonary disease) Father , 70s Heart disease Sister Breast cancer Sister Esophageal cancer Brother Factor V deficiency Lung cancer Brother Depression Daughter Alcohol abuse Daughter No problems noted. Maternal Grandfather , age 46 COPD (chronic obstructive pulmonary disease) Paternal Grandfather No problems noted. Maternal Grandmother , age 92 No problems noted. Paternal Grandmother No problems noted. Social History Smoking/Tobacco Use Status: Former Tobacco Use Quit Date: 04/30/01 Tobacco: How many years used: 30 Second Hand Exposure: Yes Smoking risk assessment performed?: Yes Alcohol Intake: current Alcohol Intake frequency: a few times a week Alcohol type: wine Drug use: Never Substance use type: does not use Adopted: No Caregiver/Support person: No Foster care: No Household members: spouse and family Housing: house Number of Children: 2 number of grandchildren: 4 Communication Needs: Hard of Hearing Education Level: high school Do you need help understanding health information?: Rarely Pets and animals: No Sexually active: No Do you think of yourself as: straight/heterosexual Current gender identity: female What is your relationship status?: How often do you talk on the phone with friends or family?: three or more times per week How often do you get together with friends or relatives?: three or more times per week How often do you attend baptist or oriental orthodox services?: 4 or more times per year Do you belong to any clubs or organized social groups?: no Panel score (0-1 are the most socially isolated patients): 3 What type of physical activity do you participate in: walking Duration: > 90 minutes/day Frequency: 3-4 times per week Loretta/Latter-Day: Methodist Special loretta needs: No Seatbelt use: always Helmet use: No Drive intox or ride w/intox clark driver: No Do you feel safe at home: Yes Do you feel safe in your relationship?: Yes
[2024-10-18] MEDS: Lactated Ringers 1,000 ML 30 ML IV (10:45)
[2024-10-18] MEDS: Bupivacaine 0.25% Pres-Free 30 ML VIAL (11:10)
[2024-10-18] MEDS: Normal Saline Flush 10 ML SYR IVP ×2 (11:10→19:54)
--- NOTE | 2024-10-18 12:26 | ROE_ITS ---
Operative Note Operative Note PRE-OP DIAGNOSIS: Acute appendicitis POST-OP DIAGNOSIS: same PROCEDURE: Laparoscopic appendectomy SURGEON: Erasmo Coburn ANESTHESIOLOGIST/PHYSICIAN: Cheryle Giang ANESTHESIA TYPE: General LMA/ETT Refer to Anesthesia Record ESTIMATED BLOOD LOSS: 30 PATHOLOGY: other (Appendix (permanent pathology); peritoneal fluid (microbiology).) COMPLICATIONS: None Patient was transported to: PACU Patient's condition: stable Implants: None Indications: 73-year-old female having acute appendicitis Findings: Acute, suppurative, but nonperforated appendicitis. Cultures were obtained of suppurative material. Patient tolerated procedure well. Procedure Description: Patient was taken to the operating room. She underwent general anesthesia. A Atkinson catheter was placed. The arms were tucked. The abdomen was prepped and draped. A timeout was completed. A Veress needle entry was attempted on the left mid abdomen lateral to the rectus sheath, and slightly inferior to the umbilicus. Appropriate insufflation pressures could not be obtained. A Veress needle entry was performed at Darden's point at the left upper quadrant, and the abdomen was insufflated to 14 cc of water. The 5 mm trocar was inserted at this position, and the abdomen was surveyed. The small and large bowel viscera were nicely decompressed. A 10 mm port was placed in the periumbilical position, a 5 mm port was placed in the left mid abdomen lateral to the rectus sheath and slightly inferior to the umbilicus, a 5 mm port was placed in the suprapubic region. The patient's bed was airplane to the left, she was put in a steep Trendelenburg position. The appendix was adherent to the right pelvic sidewall along the fimbria and fallopian tube. The mesentery of the terminal ileum was adherent as well. This was gently dissected away, and the appendix was elevated. The appendix was suppurative, with some early gangrenous changes, there was some surrounding suppurative fluid within the pelvis which was irrigated and suction, and sent for culture. The mesoappendix was taken close to the appendix using the LigaSure device, the appendix was then exposed at its base at the cecum. The appendix at its base at the cecum was doubly encircled with Vicryl Endoloop, a third Endoloop was placed about a centimeter distal and the appendix was transected. Site of dissection was irrigated and suctioned until the fluid became clear. Patient was placed in a steep Trendelenburg position, and the rectovaginal pouch of Arsen was inspected, there was some turbid a purulent fluid here that was suctioned, the space was irrigated until the fluid became clear as well. The site of dissection in the right lower quadrant was examined, this was hemostatic, the ties were appropriately placed occluding the appendiceal stump. The patient was returned to the neutral position. A generous tongue of omentum was placed over the appendiceal stump as well as the transected mesoappendix. The appendix was placed in an endoscopic retrieval pouch it was removed from the abdomen. The 10 mm port site near the umbilicus was closed with interrupted #1 Vicryl suture placed using a suture passer. Gas was allowed to desufflate from the abdomen, all incision sites were closed with 3-0 Monocryl. Sterile dressings were applied. Sponge and needle counts were correct at the termination of the procedure. Patient has tolerated the procedure well, she was transition to the recovery unit, she remains in stable condition. Date of Procedure: 10/18/24
[2024-10-18] MEDS: fentaNYL 100 MCG/2 ML VIAL IVP (12:35)
--- NOTE | 2024-10-18 12:41 | W.ANESPOSTOP ---
Postoperative Evaluation Date, Time and Location Date Performed: 10/18/24 Time Performed: 12:41 Patient Location: PACU Vital Signs Most Recent Imported Vital Signs: Most Recent Vital Signs Temp Pulse Resp BP Pulse Ox 36.4 C L 46 L 14 119/39 L 95 10/18/24 12:36 10/18/24 12:36 10/18/24 12:36 10/18/24 12:36 10/18/24 12:36 Pain Score Most Recent Pain Score: Most Recent Pain Score Pain Level [Lower Abdomen] 3 10/18/24 08:14 Pain Level 6 10/18/24 12:36 Assessment Mental Status: Awake (Alert & Oriented to Patient Baseline) Airway and Respiratory Function: Patent airway with normal (patient baseline) respiratory exam Cardiovascular Function: Hemodynamically Stable Hydration Status: Adequately Hydrated Nausea & Vomiting: No Nausea or Vomiting Pain: Pain is tolerable per patient Peripheral Nerve Block: Patient did not receive a nerve block
--- NOTE | 2024-10-18 15:26 | PDOC.CMIN ---
Date of service: 10/18/24 Time of Service: 15:26 Care Management Initial Assmt Initial Assessment Reason for Hospitalization: appendicitis Functional Status/Living Situation Patient Presentation: Michelle was sitting up in bed when CM met with her. She went to the OR this morning for a laparoscopic appendectomy. The procedure went well and Michelle reported that she was not having any pain. She stated that she just felt a little sore. She anticipates being discharged home tomorrow if tonight is uneventful. Poppy lives in a single family home in [place] with her Osbaldo. They have one daughter Nani who has 4 children and also lives in [place]. Poppy is retired and is independnet at baseline. She does not receiev any community services and does not believe she will need any at discharge. Town of Residence: [place] Resides with: Spouse ( Osbaldo) Significant Other/Family: [facility] Employment Status: Retired Instrumental Activities of Daily Living (ADLs): Independent Medications Medication Management: No Issues/Barriers identified Advance Directives Advance Directives: Do you have an Advance Directive: Y 04/18/18, 13:30 AD On File at [facility]: Y 06/22/20, 06:45 Date Asked 10/15/23 10/15/23, 16:06 AD Date Reviewed 07/21/24 07/21/24, 16:02 COLST On File at [facility] COLST Date Scanned Code Status Resuscitation Status Full Code Insurance Coverage/Financial Issues Insurance: / Medicare Advantage Care Team Visit Care Team Role Provider Type Heidi Franco NP NURSE PRACTITIONER Ander Medina DO Primary Care Provider OSTEOPATHIC DOCTOR Chasity Strong Other Providers PROFESSIONAL DRIVER Sara Madrigal Other Providers PROFESSIONAL DRIVER Kathy Coffey Other Providers PROFESSIONAL DRIVER Nirali Donnelly RN Other Providers PROFESSIONAL DRIVER Cecy Muhammad Other Providers PROFESSIONAL DRIVER Aria Dunne MD Emergency Provider [facility] STAFF PHYSICIAN Tino Muhammad MD Admit Provider [facility] STAFF PHYSICIAN Attending Provider Discharge Potential Discharge Needs: Surgical F/U Appt Anticipated Barriers to Discharge: None Identified Patient/Family Education Needs: Review discharge instructions, discuss Ask Me Three Transportation: Private vehicle Plan: Anticipate Michelle will be discharged home with no new services when medically cleared. She will follow up with her surgeon, PCP and plan of care and transport with family. CM will follow and continue to support discharge planning. Social Determinants of Health Screening Social Determinants of health last assessed in clinic: 10/18/24 Will the Patient Participate in the Screening?: Yes Do you worry about having a steady place to live?: no Problems where you live: no known problems In the past 12 months, have you had to go without electric, gas, oil or water in your home?: no 1. Within the past 12 months, we worried whether our food would run out before we got money to buy more.: Never true 2. Within the past 12 months, the food we bought just didn't last and we didn't have money to get more.: Never true Has lack of transportation kept you from medical appointments or from doing things needed for daily living?: no Has anyone in your life made you feel unsafe or unsupported?: no How hard is it for you to pay for the very basics like food, housing, medical care, and heating? Would you say it is:: Not hard at all Do you want help finding or keeping work or a job?: I do not need or want help If for any reason you need help with day-to-day activities such as bathing, preparing meals, shopping, managing finances, etc., do you get the help you need?: I don?t need any help How often do you feel lonely or isolated from those around you?: Never Do you speak a language other than Icelandic at home?: No Does the patient want assistance with any of the above?: No PFSH All Active Problems (Updated 10/18/24 @ 09:52 by Erasmo Coburn MD) Acute appendicitis (Acute) Conductive hearing loss in left ear (Acute) Perforation of tympanic membrane of left ear due to otitis media (Acute) Chronic otitis externa of left ear (Acute) Fundic gland polyps of stomach, benign (Acute ~12/29/22) 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 Osteopenia (Acute) Chronic myringitis, left ear (Acute) Allergic rhinitis due to pollen (Acute 04/19/15) Asthma (Acute 11/16/14) exacerbated by allergies Esophageal reflux (Acute) Hypertension (Acute 02/22/17) Sensorineural hearing loss, bilateral (Acute 03/29/15) Medical History Diverticulosis (~12/2022) Lipoma of anterior chest wall Seen by surg Fecal incontinence post 3 surgeries with elementary principal .. (Lamotil used qHS, ik, 09/2022) Frequent loose stools 12/2019-since fistulectomy in [place] Had previously been seen in urogyn [facility] Urge incontinence Anal fistula Family hx-breast malignancy Sister Family history of asthma Family hx of lung cancer Bro (lung, brain).. and 2nd bro (esoph) & recent Sis (esoph) Psoas muscle strain Possible, based on inner rt inguinal catch pain .. resolves .. could this be associated with RUQ pain?? 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 denies Diplopia Obstructive sleep apnea Diverticulosis Endometrial thickening on ultra sound 10/2016. ES 7mm. EMBx nl. Surgical History History of esophagogastroduodenoscopy (~2023) 12/2022, 08/2023 H/O eye surgery Trigger finger of all digits of right hand Ring finger S/P release: 11/30/2020 right hand surgery fistulotomy 2009 enterovaginal fistula repair 2007 at [facility] bladder sling Colonoscopy - IV Sedation (~12/2022) Extraction of cataract 08/13 Family History Mother , age 76 COPD (chronic obstructive pulmonary disease) Father , 70s Heart disease Sister Breast cancer Sister Esophageal cancer Brother Factor V deficiency Lung cancer Brother Depression Daughter Alcohol abuse Daughter No problems noted. Maternal Grandfather , age 46 COPD (chronic obstructive pulmonary disease) Paternal Grandfather No problems noted. Maternal Grandmother , age 92 No problems noted. Paternal Grandmother No problems noted. Social History Smoking/Tobacco Use Status: Former Tobacco Use Quit Date: 04/30/01 Tobacco: How many years used: 30 Second Hand Exposure: Yes Smoking risk assessment performed?: Yes Alcohol Intake: current Alcohol Intake frequency: a few times a week Alcohol type: wine Drug use: Never Substance use type: does not use Adopted: No Caregiver/Support person: No Foster care: No Household members: spouse and family Housing: house Number of Children: 2 number of grandchildren: 4 Communication Needs: Hard of Hearing Education Level: high school Do you need help understanding health information?: Rarely Pets and animals: No Sexually active: No Do you think of yourself as: straight/heterosexual Current gender identity: female What is your relationship status?: How often do you talk on the phone with friends or family?: three or more times per week How often do you get together with friends or relatives?: three or more times per week How often do you attend rastafari or restorationism services?: 4 or more times per year Do you belong to any clubs or organized social groups?: no Panel score (0-1 are the most socially isolated patients): 3 What type of physical activity do you participate in: walking Duration: > 90 minutes/day Frequency: 3-4 times per week Loretta/Religious: Rastafarian Special loretta needs: No Seatbelt use: always Helmet use: No Drive intox or ride w/intox motorcycle delivery driver: No Do you feel safe at home: Yes Do you feel safe in your relationship?: Yes
[2024-10-18] MEDS: Acetaminophen 500 MG TAB PO ×2 (15:46→19:53)
[2024-10-18] MEDS: Famotidine 20 MG TAB PO (15:46)
[2024-10-18] MEDS: Ibuprofen 600 MG TAB PO (17:43)
[2024-10-18] MEDS: Losartan 50 MG TAB 100 MG PO (19:53)
[2024-10-18] MEDS: Gabapentin 300 MG CAP PO (19:53)
[2024-10-18] MEDS: Magnesium Oxide 400 MG TAB PO (19:53)
[2024-10-18] MEDS: amLODIPine 10 MG TAB PO (19:53)
[2024-10-19] MEDS: ERTAPENEM 1 GM in Normal Saline 50 ML IVPB (02:46)
[2024-10-19] MEDS: Acetaminophen 500 MG TAB PO ×2 (03:21→07:46)
[2024-10-19 07:31] VITALS: BP 91/59; PULSE 47; RESP 17; TEMP 36.2; O2SAT 95
[2024-10-19 07:43] VITALS: BP 116/62; PULSE 51
[2024-10-19] MEDS: Famotidine 20 MG TAB PO (07:47)
[2024-10-19] MEDS: Cholecalciferol (Vitamin D3) 1,000 UNIT TAB 2000 UNITS PO (07:47)
[2024-10-19] MEDS: Ibuprofen 600 MG TAB PO (07:47)
[2024-10-19] MEDS: Omega-3 Fatty Acids 1000 MG CAP PO (07:47)
[2024-10-19] MEDS: Aspirin E.C. 81 MG TABEC PO (07:47)
[2024-10-19] MEDS: Normal Saline Flush 10 ML SYR IVP (07:48)
[2024-10-19 11:41] VITALS: BP 142/52; PULSE 47; RESP 18; TEMP 36.1; O2SAT 97
--- NOTE | 2024-10-19 11:54 | DSE_ITS ---
Date of service: 10/19/24 Time of Service: 11:54 DS: Diagnosis Discharge Diagnosis (1) Acute appendicitis: Status: Acute (2) Hypertension: Status: Acute Discharge Plan Disposition Patient Disposition: Home Condition: Stable Discharge Details Reason For Visit: appendicitis Admit Date/Time: 10/18/24 02:33 Admit Provider: Tino Muhammad Attending Provider: Tino Muhammad Primary Care Provider: Ander Medina Hospital Course Hospital Course: This is a 73-year-old female patient no significant past medical history presented to the emergency department with complaints of bilateral lower abdominal pain with nausea and vomiting. CT obtained was concerning for acute a ppendicitis. She underwent surgical consultation and plan was for appendectomy. She was admitted to the hospitalist service and underwent her appendectomy on Sunday, October 18. Postoperative course uneventful. Pain managed. Appetite returned and her diet was advanced and well-tolerated. She has remained hemodynamically stable and is ready for discharge to home. She will resume her usual medications as previously directed. She will follow-up outpatient with general surgery and her primary care provider. She will return sooner for new or worsening symptoms Home Meds and New Rx's Prescriptions: Continued cholecalciferol (vitamin D3) 50 mcg (2,000 unit) capsule 50 mcg PO DAILY nitroglycerin 0.6 mg tablet, sublingual 0.6 mg sublingual Q5M PRN (Reason: chest pain) Qty: 20 0RF Rx Instructions: do not exceed 3 doses per episode fish oil-dha-epa 1 EACH capsule 1 ea PO DAILY aspirin 81 mg tablet,delayed release (DR/EC) 81 mg PO DAILY magnesium oxide 400 mg magnesium capsule 400 mg PO QHS Qty: 90 3RF Rx Instructions: Take (1) every evening .. helps with sleep, headaches, muscle pains albuterol sulfate 90 mcg/actuation HFA aerosol inhaler 2 puff IH QID PRN (Reason: shortness of breath or wheezing) Qty: 18 1RF metronidazole 0.75 % cream 1 applic topical DAILY PRN (Reason: rosacea flare) Qty: 45 1RF Rx Instructions: cont per derm famotidine 40 mg tablet 40 mg PO DAILY Qty: 90 3RF amlodipine 10 mg tablet See Rx Instructions .ROUTE .COMPLEX Qty: 90 3RF Dose Instruction: TAKE 1 TABLET BY MOUTH DAILY Rx Instructions: TAKE 1 TABLET BY MOUTH DAILY losartan 100 mg tablet 100 mg PO HS Qty: 90 3RF sucralfate 1 gram tablet 1 g PO QACHS Qty: 120 2RF Discharge Instructions Instructions: Appendectomy, Laparoscopic Surgery (DC) Additional Instructions: continue advancing diet as tolerated. Soft or [place]. Low fiber and Low Lactose. Also pts can advance from clear liquids to surgical soft. Full liquid diets are high in milk protein which is not well tolerated with GI surgeries. Stand Alone Forms: Nursing Discharge Form Referrals: Ander Medina DO [Primary Care Provider, Medicine] Referral Note: I called your PCP office and left a voicemail to have them give you a call to set up a follow up appointment for within 1 to 2 weeks. Activity:: Activity as Tolerated Equipment/Supplies:: No Equipment Needed Diet:: As Tolerated Discharge Orders Discharge Orders: Discharge Order (Routine); Ordered 10/19/24 Ordered By: Heidi Franco Discharge Data Discharge Date/Time-TO BE ENTERED AT DEPARTURE: 10/19/24 12:35 DS: Summary Time Spent with Patient providing and/or coordinating discharge services: Greater than 30 minutes Status at Discharge Functional status at discharge: independent ambulation Overall status at discharge: patient is progressing back to baseline Mental Status: mental status grossly normal Speech and Movement: speech and movement normal Mood: congruent mood Affect: normal affect Exam Psych Mental Status: mental status grossly normal Speech and Movement: speech and movement normal Mood: congruent mood Affect: normal affect DS: Data Vitals/I&O Vitals and I&O: Vital Signs Temperature 36.1 C L 10/19/24 11:41 Temperature Source Temporal Artery Scan 10/19/24 11:41 Pulse 47 L 10/19/24 11:41 Respiratory Rate 18 10/19/24 11:41 Respiratory Effort Normal 10/18/24 03:56 Respiratory Depth Normal 10/18/24 03:56 Respiratory Pattern Normal 10/18/24 03:56 Blood Pressure 142/52 H 10/19/24 11:41 Blood Pressure Mean 82 10/19/24 11:41 Pulse Oximetry 97 10/19/24 11:41 Respiratory End-tidal CO2 45 10/18/24 12:56 Oxygen Delivery Method Room Air 10/19/24 11:41 Oxygen Flow Rate 0 10/19/24 11:41 Pain Level 0 10/19/24 11:41 Comment denies SOB 10/18/24 03:56 Intake & Output 10/18/24 10/18/24 10/19/24 11:59 23:59 11:59 Intake Total 100 / 780 680 / 780 50 / 50 Output Total 100 / 100 Balance 100 / 680 580 / 680 50 / 50 Weight 81.4 kg Intake: IV 100 / 600 500 / 600 50 / 50 Oral 180 / 180 Output: Urine 100 / 100 Other: Urine Color Yellow Yellow Urine Appearance Clear Clear Urine Odor Normal Comment pT states last void 06:30 Emesis Description None Data Completed and Pending Labs on day of discharge: 10/18/24 11:46 Peritoneal Anaerobic Culture - Pending Preliminary micro results at discharge 10/18/24 11:46 Peritoneal Surgical Culture - Preliminary 10/18/24 11:46 Peritoneal Anaerobic Culture - Pending [facility] All Active Problems (Updated 10/18/24 @ 09:52 by Erasmo Coburn MD) Acute appendicitis (Acute) Conductive hearing loss in left ear (Acute) Perforation of tympanic membrane of left ear due to otitis media (Acute) Chronic otitis externa of left ear (Acute) Fundic gland polyps of stomach, benign (Acute ~12/29/22) 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 Osteopenia (Acute) Chronic myringitis, left ear (Acute) Allergic rhinitis due to pollen (Acute 04/19/15) Asthma (Acute 11/16/14) exacerbated by allergies Esophageal reflux (Acute) Hypertension (Acute 02/22/17) Sensorineural hearing loss, bilateral (Acute 03/29/15) Medical History Diverticulosis (~12/2022) Lipoma of anterior chest wall Seen by surg Fecal incontinence post 3 surgeries with receiving lead .. (Lamotil used qHS, ik, 09/2022) Frequent loose stools 12/2019-since fistulectomy in [place] Had previously been seen in urogyn [facility] Urge incontinence Anal fistula Family hx-breast malignancy Sister Family history of asthma Family hx of lung cancer Bro (lung, brain).. and 2nd bro (esoph) & recent Sis (esoph) Psoas muscle strain Possible, based on inner rt inguinal catch pain .. resolves .. could this be associated with RUQ pain?? 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 denies Diplopia Obstructive sleep apnea Diverticulosis Endometrial thickening on ultra sound 10/2016. ES 7mm. EMBx nl. Surgical History History of esophagogastroduodenoscopy (~2023) 12/2022, 08/2023 H/O eye surgery Trigger finger of all digits of right hand Ring finger S/P release: 11/30/2020 right hand surgery fistulotomy 2009 enterovaginal fistula repair 2007 at [facility] bladder sling Colonoscopy - IV Sedation (~12/2022) Extraction of cataract 08/13 Family History Mother , age 76 COPD (chronic obstructive pulmonary disease) Father , 70s Heart disease Sister Breast cancer Sister Esophageal cancer Brother Factor V deficiency Lung cancer Brother Depression Daughter Alcohol abuse Daughter No problems noted. Maternal Grandfather , age 46 COPD (chronic obstructive pulmonary disease) Paternal Grandfather No problems noted. Maternal Grandmother , age 92 No problems noted. Paternal Grandmother No problems noted. Social History Smoking/Tobacco Use Status: Former Tobacco Use Quit Date: 04/30/01 Tobacco: How many years used: 30 Second Hand Exposure: Yes Smoking risk assessment performed?: Yes Alcohol Intake: current Alcohol Intake frequency: a few times a week Alcohol type: wine Drug use: Never Substance use type: does not use Adopted: No Caregiver/Support person: No Foster care: No Household members: spouse and family Housing: house Number of Children: 2 number of grandchildren: 4 Communication Needs: Hard of Hearing Education Level: high school Do you need help understanding health information?: Rarely Pets and animals: No Sexually active: No Do you think of yourself as: straight/heterosexual Current gender identity: female What is your relationship status?: How often do you talk on the phone with friends or family?: three or more times per week How often do you get together with friends or relatives?: three or more times per week How often do you attend latter day or restorationism services?: 4 or more times per year Do you belong to any clubs or organized social groups?: no Panel score (0-1 are the most socially isolated patients): 3 What type of physical activity do you participate in: walking Duration: > 90 minutes/day Frequency: 3-4 times per week Loretta/Baptism: Worship Special loretta needs: No Seatbelt use: always Helmet use: No Drive intox or ride w/intox non emergency services ambulance driver: No Do you feel safe at home: Yes Do you feel safe in your relationship?: Yes Time Spent with Patient Time Spent with Patient: 45-69 minutes Time was spent: preparing to see the patient(eg.review tests), obtaining and/or reviewing separately otained hiistory, ordering medications,tests, procedures and indepentently interpreting results
[2024-10-19] MEDS: Sucralfate 1 GM TAB PO (11:56)
--- NOTE | 2024-10-19 16:42 | PDOC.CMDIS ---
Date of service: 10/19/24 Time of Service: 16:42 LACE Index Scoring Tool Questions: Length of Stay (in days): 2 Was the patient admitted via the E.D.?: Yes Comorbidities: Chronic Pulmonary Disease E.D. Visits: 1 Answers: Total Score: 8 Risk of Readmission: Low Risk Care Management Discharge Plan Reason for Hospitalization: appendicitis Discharge Plan: Ev will be discharged home with no new services. She will follow up with her surgeon, PCP and plan of care and transport with family, Patient/Family Education Needs: Review discharge instructions, discuss Ask Me Three
== END 2024-10-19 12:35 | disposition home or self-care (01) ==
LOC: ER 10-18 02:38 → MS 10-18 08:08
PROVIDERS: Surgery; Admitting Provider Hospitalist; Emergency Provider Student in an Organized Health Care Education/Training Program; PCP Family Medicine; Responsible Provider Nurse Practitioner Acute Care; Visit Provider Hospitalist
PROC: 0DTJ4ZZ Resection of Appendix, Percutaneous Endoscopic Approach (ICD-10-PCS; CPT 44970; principal; 2024-10-18 15:00)
DX: K35.30 Acute appendicitis with localized peritonitis, without perforation or gangrene (principal); D68.51 Activated protein C resistance; I10 Essential (primary) hypertension; H90.12 Conductive hearing loss, unilateral, left ear, with unrestricted hearing on the contralateral side; H60.62 Unspecified chronic otitis externa, left ear; K31.7 Polyp of stomach and duodenum; K22.70 Barrett's esophagus without dysplasia; M47.898 Other spondylosis, sacral and sacrococcygeal region; M85.80 Other specified disorders of bone density and structure, unspecified site; J45.909 Unspecified asthma, uncomplicated; H90.3 Sensorineural hearing loss, bilateral
CPT/HCPCS: 44970; 00123; 80053; 87077; 96365; 96366; 96367; 96375; 99222; 99285; 74177; 81003; 81015; 83735; 85025; 87070; 87075; 87186; 87205; 88304; 99239; G0378; J0131; J0665; J1100; J1335; J1805; J1885; J2371; J2405; J2704; J3010; J3475; J3490; Q9967

== ENCOUNTER → 2024-10-29 11:24 | Outpatient (BNVA) | payer MEDICARE, SELFPAY | PROVIDERS: PCP Family Medicine; Referring Provider Family Medicine; Visit Provider Physical Therapy Assistant | DX: Z48.89 Encounter for other specified surgical aftercare (principal) | CPT/HCPCS: 99024 ==

== ENCOUNTER 2024-11-06 01:11 | Outpatient (CLI) | payer MEDICARE, SELFPAY ==
--- NOTE | 2024-11-06 | DI.MRI_ITS ---
Exam(s) MR BRAIN ORBIT FACE NECK WO/W EXAM: MR BRAIN ORBIT FACE NECK WO/W CLINICAL HISTORY: visual disturbance H53.451 Localized visual field defect, rt eye TECHNIQUE: Multiplanar multisequence MRI of the brain was performed. COMPARISON: No exams were available for comparison FINDINGS: VENTRICLES AND EXTRA AXIAL SPACES: Normal in size and morphology for the patient's age. HEMORRHAGE: None. CEREBRAL PARENCHYMA: No focus of restricted diffusion to suggest acute infarct. No space-occupying lesion identified. Mild atrophy. Mild scattered high signal foci in the white matter likely reflecting small vessel disease. MIDLINE SHIFT: None. BRAINSTEM/CEREBELLUM: Normal. CALVARIUM: Normal. VISUALIZED PARANASAL SINUSES/MASTOIDS: Clear. Vasculature: No gross evidence of aneurysm or stenosis. ORBITS: The globes are intact. The retrobulbar fat is unremarkable. Extraocular muscles are unremarkable. OPTIC NERVES: The intracranial and extracranial portions of the optic nerves are within normal limits. Optic chiasm is within normal limits. No MRI evidence of optic neuritis identified. SOFT TISSUES: The soft tissues of the face and scalp are unremarkable. IMPRESSION: Unremarkable MRI of the brain and orbits. DATA REPOSITORY:
[2024-11-06] MEDS: Gadoterate meglumine 20 ML SYRINGE 16 ML IVP (13:07)
[2024-11-06] MEDS: Normal Saline Flush 10 ML SYR IVP (13:08)
== END 2024-11-06 01:31 ==
LOC: DI 01:11
PROVIDERS: PCP Family Medicine; Visit Provider Optometrist
DX: H53.451 Other localized visual field defect, right eye (principal)
CPT/HCPCS: 70553; 70543

== ENCOUNTER 2025-01-08 09:30 | Outpatient (CLI) | payer MEDICARE, SELFPAY ==
--- NOTE | 2025-01-08 09:30 | RT.EKG_ITS ---
APPROVED REPORT Exam: Resting ECG Reason for Exam: Preop Exam Patient Location: O HR:50 bpm ECG Measurements Heart Rate 50 AXIS LA 162 P 52 QRSd 99 QRS -61 QT 452 T 46 QTc 413 Conclusion Sinus rhythm...normal P axis, V-rate 50- 99 Inferior infarct, old...Q >35mS, II III aVF
== END 2025-01-08 09:31 | disposition home or self-care (01) ==
LOC: DI.KIM 09:31
PROVIDERS: PCP Family Medicine; Visit Provider Family Medicine
DX: Z01.818 Encounter for other preprocedural examination (principal)
CPT/HCPCS: 93010

== ENCOUNTER 2025-02-16 08:35 | Outpatient (CLI) | payer MEDICARE, SELFPAY ==
--- NOTE | 2025-02-16 08:30 | RT.EKG_ITS ---
APPROVED REPORT Exam: Resting ECG Reason for Exam: irregular heart beat Patient Location: O HR:53 bpm ECG Measurements Heart Rate 53 AXIS OK 161 P 51 QRSd 106 QRS -48 QT 449 T 43 QTc 422 Conclusion Sinus rhythm...normal P axis, V-rate 50- 99 Left anterior fascicular block...axis(240,-40), init forces inf
== END 2025-02-16 08:36 | disposition home or self-care (01) ==
LOC: DI.CARD 08:36
PROVIDERS: PCP Family Medicine; Visit Provider Registered Nurse
DX: I25.2 Old myocardial infarction (principal); I49.9 Cardiac arrhythmia, unspecified; I44.4 Left anterior fascicular block
CPT/HCPCS: 93010

== ENCOUNTER → 2025-02-16 12:53 | Outpatient (BNVA) | payer MEDICARE, SELFPAY | PROVIDERS: PCP Family Medicine; Referring Provider Family Medicine; Visit Provider Registered Nurse | DX: I25.2 Old myocardial infarction (principal); I10 Essential (primary) hypertension; Z79.899 Other long term (current) drug therapy | CPT/HCPCS: 99215 ==

== ENCOUNTER 2025-02-24 00:58 | Outpatient (CLI) | payer MEDICARE, SELFPAY ==
--- NOTE | 2025-02-24 08:15 | DI.MAMMO_ITS ---
Exam(s) MAMMO SCREENING EXAM: MAMMO SCREENING CLINICAL HISTORY: screening,Z12.39. TECHNIQUE: Bilateral full field digital CC and MLO mammographic images were obtained with 3D tomosynthesis and utilizing computer aided detection (CAD). COMPARISON: Prior mammograms were reviewed. FINDINGS: There has been no significant change in the appearance and distribution of the fibroglandular tissue. Two benign-appearing small nodules left breast are unchanged from prior mammograms. There are no new spiculated masses nor new malignant appearing microcalcification groups. There is no significant architectural distortion nor skin thickening-retraction. IMPRESSION: Stable benign findings. No radiographic evidence of malignancy. BI-RADS Category 2 - Benign Findings Breast Density - Category B - There are scattered areas of fibroglandular density. Breast density Category C or D implies that the patient has dense breast tissue. Dense breast tissue can make it harder to find cancer on a mammogram. Dense breast tissue is also associated with an increased risk of breast cancer. This information about the result of the mammogram report was provided to the patient to raise their awareness. Use this report when you speak with the patient about their risks for breast cancer, which includes their family history. At that time, you may recommend additional screening tests (Ultrasound or MRI) as these tests may add significant information. A negative radiographic report should not delay biopsy if a dominant or clinically suspicious mass is present. Up to ten percent of cancers are not identified on mammography. A negative report may reinforce clinical impression. Adenosis and dense breasts may obscure an underlying neoplasm. False positive reports average 6 to 10%. Patient will receive a letter notifying them of these results.
== END 2025-02-24 01:18 ==
LOC: DI 00:58
PROVIDERS: PCP Family Medicine; Visit Provider Family Medicine
DX: Z12.31 Encounter for screening mammogram for malignant neoplasm of breast (principal); R92.323 Mammographic fibroglandular density, bilateral breasts
CPT/HCPCS: 77063; 77067